=== PATIENT | female | born 1945 | race Caucasian/White ===

== ENCOUNTER 2016-06-20 20:30 | Inpatient (IN) | payer OTHER ==
[~2016-06-20] VITALS: Ht 157.5 cm; Wt 75.4 kg
[2016-06-21] VITALS (12 sets, daily range): BP systolic 137–174; BP diastolic 63–76; PULSE 60–83; RESP 20; TEMP 97.6; Ht 157.5 cm; Wt 75.4 kg
[2016-06-21] MEDS ORDERED: KETOROLAC 15 MG INJ IV STA (00:14)
[2016-06-21] MEDS ORDERED: SOD CHLORIDE 0.9% 1,000 ML IV STA (00:14)
[2016-06-21] MEDS ORDERED: ONDANSETRON 4 MG INJ IV STA (00:14)
[2016-06-21 01:10] LABS: BASOPHIL # 0.1 10^3/ul (0.0-0.1); BASOPHILS % 0.6 % (0.0-2.0); EOSINOPHILS # 0.3 10^3/ul (0.0-0.5); EOSINOPHILS % 2.9 % (0.0-7.0); HEMATOCRIT 38.5 % (37.0-47.0); HEMOGLOBIN 13.1 g/dl (12.0-16.0); LYMPHOCYTES # 3.1 10^3/ul (0.8-2.9); LYMPHOCYTES % 29.4 % (15.0-51.0); MEAN CORPUSCULAR HEMOGLOBIN 29.1 pg (29.0-33.0); MEAN CORPUSCULAR VOLUME 85.7 fl (82.0-101.0); MEAN PLATELET VOLUME 8.7 fl (7.4-10.4); MONOCYTE # 0.8 10^3/ul (0.3-0.9); MONOCYTES % 7.3 % (0.0-11.0); NEUTROPHIL # 6.4 10^3/ul (1.6-7.5); NEUTROPHILS % 59.8 % (39.0-77.0); PLATELET COUNT 299 10^3/UL (140-440); RED BLOOD COUNT 4.49 10^6/ul (4.20-5.40); RED CELL DISTRIBUTION WIDTH 12.9 % (11.5-14.5); UNCORRECTED WBC 10.7 10^3/ul (4.8-10.8); WHITE BLOOD COUNT 10.7 10^3/ul (4.8-10.8)
[2016-06-21 01:12] LABS: ALBUMIN 4.2 g/dl (3.3-4.9)
[2016-06-21 01:13] LABS: CONDITION 1; POTASSIUM 4.5 mmol/L (3.5-5.1)
[2016-06-21 01:15] LABS: BILIRUBIN,INDIRECT 0.3 mg/dl (0-1.1); BILIRUBIN,TOTAL 0.3 mg/dl (0.2-1.3); CREATININE 0.76 mg/dl (0.44-1.00)
[2016-06-21 01:16] LABS: ALBUMIN/GLOBULIN RATIO 1.16; CALCIUM 9.4 mg/dl (8.4-10.2); TOTAL PROTEIN 7.8 g/dl (6.1-8.1)
[2016-06-21 01:27] LABS: ADD UMIC YES; URINE BILIRUBIN (Dip) NEGATIVE (NEGATIVE); URINE BLOOD (Dip) NEGATIVE (NEGATIVE); URINE COLOR LT. YELLOW (YELLOW); URINE KETONES (Dip) TRACE (NEGATIVE); URINE LEUKOCYTE ESTERASE (Dip) 1+ (NEGATIVE); URINE NITRITE (Dip) NEGATIVE (NEGATIVE); URINE TOTAL PROTEIN (Dip) NEGATIVE (NEGATIVE); URINE UROBILINOGEN (Dip) 0.2 E.U./dL (0.1-1.0)
[2016-06-21] MEDS ORDERED: CEPH-443 PO (01:31)
[2016-06-21 01:44] LABS: TROPONIN-I 0.13 ng/ml (0.00-0.12)
--- NOTE | 2016-06-21 01:48 | ERD ---
ER Documentation Chief Complaint Date/Time DATE: 06/21/16 TIME: 01:42 Chief Complaint HTN and mid neck pain today HPI 71-year-old woman brought in by son for generalized weakness and elevated blood pressure today she is also had upper back pain and lateral neck pain which is nonexertional and nonradiating. Patient denies chest pain or shortness of breath, she has been using her medications as prescribed, she has had no fevers or chills, no cough, no calf or leg swelling, no headache or blurry vision. Patient denies paresis or paresthesias, no dysuria or hematuria. ROS All systems reviewed and are negative except as per history of present illness. Medications Home Meds Active Scripts Cephalexin* (Keflex*) 500 Mg Capsule, 500 MG PO TID for 5 Days, CAP Prov:DEMETRIO TRINIDAD MD 06/21/16 Allergies Allergies: Coded Allergies: No Known Allergy (Unverified , 06/20/16) PMhx/Soc Hypertension History of Surgery: No Anesthesia Reaction: No Hx Neurological Disorder: No Hx Respiratory Disorders: No Hx Cardiac Disorders: Yes (HTN) Hx Psychiatric Problems: No Hx Miscellaneous Medical Probl: Yes (DM, CHOLESTEROL) Hx Alcohol Use: No Hx Substance Use: No Hx Tobacco Use: No Smoking Status: Never smoker FmHx Family History: diabetes Physical Exam Vitals Vital Signs Date Time Temp Pulse Resp B/P Pulse Ox O2 Delivery O2 Flow Rate FiO2 06/21/16 02:52 62 18 113/57 99 Room Air 06/21/16 01:26 73 20 121/60 100 Room Air 06/20/16 23:55 98.6 63 20 161/76 100 Room Air 06/20/16 21:13 97.6 63 20 183/76 100 Physical Exam GENERAL: Well-developed, well-nourished, well-hydrated, in no apparent distress , looks nontoxic in appearance HEENT: Moist mucous membranes, pink conjunctiva, no cervical spine tenderness or step-off deformities, no goiter, no jaundice or icterus, extraocular movements intact without pain. No submandibular induration, and no pharyngeal erythema NEURO: Alert and oriented 3, cranial nerves II through XII intact bilaterally, pupils equal round reactive to light, no focal deficits or facial asymmetry, sensation intact distally Strength 5/5 in upper and lower extremities bilaterally CARDIAC: Regular rate and rhythm, no murmurs rubs or gallops LUNGS: Clear bilaterally no wheezing crackles or stridor ABDOMEN: Soft nontender, no guarding, no rigidity, no rebound, no psoas sign no obturator sign. Normoactive bowel sounds SKIN: Warm and dry to touch, no abrasions, contusions, or hematomas, no lacerations, no ecchymosis, no target lesions, and without ulcers EXTREMITIES: No clubbing cyanosis or edema, calves are bilaterally symmetrical, no Homans sign, no popliteal cord sign. Distal pulses equal and bilateral PSYCH: Normal affect without agitation or irritability Result Diagram: 06/21/163406/21/1634 Results 24 hrs Laboratory Tests Test 06/21/16 00:35 06/21/16 00:45 Alanine Aminotransferase (ALT/SGPT) 32IU/L Albumin 4.2g/dl Albumin/Globulin Ratio 1.16 Alkaline Phosphatase 54IU/L Anion Gap 18 Aspartate Amino Transf (AST/SGOT) 22IU/L Basophils # 0.110^3/ul Basophils % 0.6% Blood Urea Nitrogen 16mg/dl Calcium Level 9.4mg/dl Carbon Dioxide Level 26mmol/L Chloride Level 93mmol/L Creatinine 0.76mg/dl Direct Bilirubin 0.00mg/dl Eosinophils # 0.310^3/ul Eosinophils % 2.9% Globulin 3.60g/dl Glucose Level 220mg/dl Hematocrit 38.5% Hemoglobin 13.1g/dl Indirect Bilirubin 0.3mg/dl Lipase 104U/L Lymphocytes # 3.110^3/ul Lymphocytes % 29.4% Mean Corpuscular Hemoglobin 29.1pg Mean Corpuscular Hemoglobin Concent 34.0g/dl Mean Corpuscular Volume 85.7fl Mean Platelet Volume 8.7fl Monocytes # 0.810^3/ul Monocytes % 7.3% Neutrophils # 6.410^3/ul Neutrophils % 59.8% Nucleated Red Blood Cells # 0.010^3/ul Nucleated Red Blood Cells % 0.0/100WBC Platelet Count 60992^3/UL Potassium Level 4.5mmol/L Red Blood Count 4.4910^6/ul Red Cell Distribution Width 12.9% Sodium Level 132mmol/L Total Bilirubin 0.3mg/dl Total Protein 7.8g/dl Troponin I 0.130ng/ml White Blood Count 10.710^3/ul Urine Bilirubin NEGATIVE Urine Clarity CLEAR Urine Color LT. YELLOW Urine Glucose 0.5%% Urine Hemoglobin NEGATIVE Urine Ketones TRACE Urine Leukocyte Esterase 1+ Urine Microscopic RBC 0-2/HPF Urine Microscopic WBC 2-5/HPF Urine Nitrite NEGATIVE Urine Specific [place] <=1.005 Urine Squamous Epithelial Cells RARE Urine Total Protein NEGATIVE Urine Urobilinogen 0.2 E.U./dL Urine pH 5.5 Current Medications Medications (Trade) Dose Ordered Sig/Bryan Route PRN Reason Start Time Stop Time Status Last Admin Dose Admin Clonidine 0.1 mg 0.1 mg ONCE ONCE PO 06/21/16 00:30 06/21/16 00:32 DC 06/21/16 00:52 Sodium Chloride (NS) 1,000 ml @ 1,000 mls/hr Q1H STAT IV 06/21/16 00:14 06/21/16 01:13 DC 06/21/16 00:51 Ondansetron HCl (Zofran Inj) 4 mg ONCE STAT IV 06/21/16 00:14 06/21/16 00:15 DC 06/21/16 00:53 Ketorolac Tromethamine (Toradol) 15 mg ONCE STAT IV 06/21/16 00:14 06/21/16 00:15 DC 06/21/16 00:53 Aspirin (Aspirin) 325 mg ONCE ONCE PO 06/21/16 02:00 06/21/16 02:01 DC 06/21/16 02:39 Procedures/MDM IV line was established patient was placed on front desk monitor rhythm strip revealed a sinus rhythm at about 60 bpm with upright P and T waves. Patient was afebrile. I administered 1 L normal saline intravenously, Toradol 15 mg IV, Zofran 4 mg IV , and clonidine 0.1 mg p.o. with good effect. EKG performed, read by me: 62 bpm, normal sinus rhythm, normal axis, no acute ST segment changes, narrow QRS complex, with good R-wave progression in precordial leads. CBC was unremarkable, electrolytes normal, troponin +0.13. Liver function tests normal. Urine analysis was unremarkable I treated the patient with aspirin 325 mg p.o. Patient's vital signs have improved although given her symptoms and elevated troponin she will be admitted to telemetry setting. Patient's symptoms are concerning for cardiac cause will require inpatient workup and continuous monitoring. Further w/u for ischemia, arrhythmia, PE or dissection will be deferred to the inpatient team. Accepting Care Team: Current data and ongoing care discussed. Time: Time of admission Primary Provider: Hospital Consulting: Cardiology Outstanding Data: none Departure Diagnosis: Primary Impression: Hypertension Hypertension type: essential hypertension Qualified Code: I10 - Essential hypertension Additional Impression: Non-STEMI (non-ST elevated myocardial infarction) Condition: Fair Patient Instructions: High Blood Pressure (Hypertension), Bladder Infection, Female (Adult) DEMETRIO TRINIDAD MD Jun 21, 2016 01:48
[2016-06-21 01:54] LABS: SQUAMOUS EPITHELIAL CELL,UR RARE; URINE RBCS 0-2 /HPF (0)
[2016-06-21] MEDS ORDERED: ASPIRIN 325 MG TAB PO ONE (02:00)
--- NOTE | 2016-06-21 03:14 | RADRPT ---
PROCEDURE: XR Chest. CLINICAL INDICATION: Shortness of breath. TECHNIQUE: AP Portable chest. COMPARISON: No pertinent prior examinations were submitted for comparison. FINDINGS: The cardiomediastinal silhouette is normal. The lungs are clear. The osseous structures are unrema rkable. IMPRESSION: No acute findings. RPTAT: HIKT .Avinash Mcgill MD, MD Date Time Electronically viewed and signed by .Avinash Mcgill MD, MD on 06/21/2016 03:13 .T/
[2016-06-21] MEDS ORDERED: morphine 2 MG INJ IV PRN (05:00)
[2016-06-21] MEDS ORDERED: DEXTROSE 5%-0.45% NACL 1,000 ML IV SCH (05:00)
[2016-06-21] MEDS ORDERED: ONDANSETRON 4 MG INJ IV PRN (05:00)
[2016-06-21] MEDS ORDERED: NITROGLYCERIN (SL) 0.4 MG TAB SL PRN (05:00)
[2016-06-21] MEDS ORDERED: ACETAMINOPHEN 325 MG TAB PO PRN (05:00)
[2016-06-21] MEDS: HEPARIN 5,000 UNIT/0.5 ML SYG SC SCH ×3 (05:54→21:32)
[2016-06-21] MEDS ORDERED: METOPROLOL 25 MG TAB PO SCH (09:00)
--- NOTE | 2016-06-21 09:30 | HP ---
DATE OF ADMISSION: 06/21/2016 TIME SEEN: 5 a.m. CHIEF COMPLAINT: Generalized weakness and elevated blood pressure and neck pain. The patient is a 71-year-old male with a history of hypertension and diabetes who presented to the e mergency department with family complaining of generalized weakness and elevated blood pressure. Sh e also reported mild neck pain. Denied any chest pain, shortness of breath, fever, chills, nausea, vomiting, abdominal pain, or urinary symptoms. When she presented to the ER, blood pressure was 183/76 and laboratory value was notable for a tropo doc of 0.130. Sodium 132, chloride 93. Otherwise, CBC and CMP are within normal limits. Chest x-ray shows no acute findings. The patient was given aspirin, clonidine, a liter of normal saline, Toradol and Zofran and admitted for further workup and management. Of note, her initial EKG shows normal sinus rhythm with a rate of [address]-T wave abnormalities . REVIEW OF SYSTEMS: A 12-point review of systems negative except as mentioned in HPI. PAST MEDICAL HISTORY: As per HPI. PAST SURGICAL HISTORY: Cholecystectomy. SOCIAL HISTORY: Denied a history of tobacco, alcohol or illicit drug use. ALLERGIES: NO KNOWN DRUG ALLERGIES. HOME MEDICATIONS: None listed. PHYSICAL EXAMINATION: VITAL SIGNS: Currently blood pressure 137/64, heart rate 63, respiratory rate 20, temperature 98, o xygen saturation 98% on room air. GENERAL: Elderly female lying in bed in no acute distress. HEENT: No obvious head deformity. Extraocular muscles intact. CARDIOVASCULAR: Regular rate and rhythm. No extra sounds. Lungs are clear. ABDOMEN: Soft, nontender, nondistended. Positive bowel sounds. EXTREMITIES: No edema. NEUROLOGIC: No focal deficits. LABORATORY DATA: Pertinent laboratories as mentioned in the HPI. IMAGING: Chest x-ray with no findings. IMPRESSION: 1. Positive troponin. 2. Hypertensive urgency, blood pressure within goal now. 3. Neck pain/upper back pain, of unknown etiology. 4. Mild hyponatremia. 5. Diabetes. PLAN: Continue telemetry monitoring. Her positive troponin could be demand ischemia as a result of elevated blood pressure. She denies any chest pain or shortness of breath, even though she did repo rt some lateral neck pain and upper back pain. We will trend troponin. EKG as mentioned above show s normal sinus rhythm with a rate of [address]-T wave abnormality. We will obtain a 2D echo and a cardiology consult. She will be placed on aspirin, beta blockers, statins oxygen and as needed n itroglycerin and morphine. Blood pressure is better controlled now. Will adjust antihypertensive a s needed. Will check A1c, fasting lipids and TSH in the morning. Will correct electrolytes as hope d. Further workup and management per clinical course. Dictated By: CLYDE MCGINNIS/MOHIT Conf#: [id number] DID#: [id number]
[2016-06-21 11:58] LABS: ALBUMIN 4.6 g/dl (3.3-4.9)
[2016-06-21 11:59] LABS: POTASSIUM 4.7 mmol/L (3.5-5.1)
[2016-06-21 12:01] LABS: ALBUMIN/GLOBULIN RATIO 1.53; BILIRUBIN,INDIRECT 0.1 mg/dl (0-1.1); BILIRUBIN,TOTAL 0.1 mg/dl (0.2-1.3); CREATININE 0.71 mg/dl (0.44-1.00); TOTAL PROTEIN 7.6 g/dl (6.1-8.1)
[2016-06-21 12:02] LABS: CALCIUM 9.7 mg/dl (8.4-10.2)
[2016-06-21 12:32] LABS: THYROID STIMULATING HORMONE 2.55 MIU/L (0.465-4.680)
--- NOTE | 2016-06-21 15:26 | PN ---
Date/Time of Note Date/Time of Note DATE: 06/21/16 TIME: 15:11 Assessment/Plan VTE Prophylaxis VTE Prophylaxis Intervention: heparin Lines/Catheters IV Catheter Type (from Nrs): Saline Lock Urinary Cath still in place: No Assessment/Plan Assessment/Plan 1. Positive troponin, significance unclear, follow up with cardiology 2. Hypertension, not controlled, lisinopril with metoprolol 3. Neck pain/upper back pain, of unknown etiology. 4. Mild hyponatremia. 5. Diabetes mellitus, declines insulins, on metoformin, will increase glyburide Subjective 24 Hr Interval Summary Free Text/Dictation no chest pain, no shortness of breath Exam/Review of Systems Vital Signs Vitals Vital Signs Date Time Temp Pulse Resp B/P Pulse Ox O2 Delivery O2 Flow Rate FiO2 06/21/16 12:02 66 06/21/16 12:00 97.8 20 174/75 97 Room Air Intake and Output 06/20/16 06/20/16 06/21/16 15:00 23:00 07:00 Intake Total 50 ml Balance 50 ml Exam Constitutional: alert, oriented, well developed Psych: nl mood/affect, no complaints Head: atraumatic, normocephalic Eyes: EOMI, PERRL, nl conjunctiva, nl lids ENMT: nl external ears & nose, nl lips & teeth, nl nasal mucosa & septum Neck: non-tender, supple Respiratory: clear to auscultation, normal air movement, No congested cough, No crackles/rales, No diminished breath sounds, No intercostal retraction, No labored breathing, No respirations, No tactile fremitus, No wheezing Cardiovascular: nl pulses, regular rate and rhythm, No S3, No S4, No bruits, No diastolic murmur, No edema, No gallop, No irregular rhythm, No jugular venous distention (JVD), No murmurs/extra sounds, No rub, No systolic murmur Gastrointestinal: nl liver, spleen, non-tender, soft, No ascites, No bowel sounds, No distended, No firm, No hepatomegaly, No mass , No rebound or guarding, No splenomegaly, No surgical scars, No tender Musculoskeletal: nl extremities to inspection Extremities: normal pulses, No calf tenderness, No clubbing, No cyanosis, No edema, No palpable cord, No pitting pedal edema, No tenderness Neurological: [employer] II-XII intact, nl mental status, nl speech, nl strength Skin: nl turgor, rash or lesions Lymph: nl lymph nodes Results Result Diagram: 06/21/165 06/21/16 0900 Results 24 hrs Laboratory Tests Test 06/21/16 00:35 06/21/16 00:45 06/21/16 09:00 Alanine Aminotransferase (ALT/SGPT) 32 31 Albumin 4.2 4.6 Albumin/Globulin Ratio 1.16 1.53 Alkaline Phosphatase 54 59 Anion Gap 18 H 22 H Aspartate Amino Transf (AST/SGOT) 22 25 Basophils # 0.1 Basophils % 0.6 Blood Urea Nitrogen 16 17 Calcium Level 9.4 9.7 Carbon Dioxide Level 26 24 Chloride Level 93 L 91 L Creatinine 0.76 0.71 Direct Bilirubin 0.00 0.00 Eosinophils # 0.3 Eosinophils % 2.9 Globulin 3.60 H 3.00 Glucose Level 220 221 H Hematocrit 38.5 Hemoglobin 13.1 Hemoglobin A1c 8.5 H Indirect Bilirubin 0.3 0.1 Lipase 104 Lymphocytes # 3.1 H Lymphocytes % 29.4 Mean Corpuscular Hemoglobin 29.1 Mean Corpuscular Hemoglobin Concent 34.0 Mean Corpuscular Volume 85.7 Mean Platelet Volume 8.7 Monocytes # 0.8 Monocytes % 7.3 Neutrophils # 6.4 Neutrophils % 59.8 Nucleated Red Blood Cells # 0.0 Nucleated Red Blood Cells % 0.0 Platelet Count 299 Potassium Level 4.5 4.7 Red Blood Count 4.49 Red Cell Distribution Width 12.9 Sodium Level 132 L 132 L Total Bilirubin 0.3 0.1 L Total Protein 7.8 7.6 Troponin I 0.130 *H 0.148 *H White Blood Count 10.7 Urine Bilirubin NEGATIVE Urine Clarity CLEAR Urine Color LT. YELLOW Urine Glucose 0.5% H Urine Hemoglobin NEGATIVE Urine Ketones TRACE H Urine Leukocyte Esterase 1+ H Urine Microscopic RBC 0-2 Urine Microscopic WBC 2-5 Urine Nitrite NEGATIVE Urine Specific [place] <=1.005 L Urine Squamous Epithelial Cells RARE Urine Total Protein NEGATIVE Urine Urobilinogen 0.2 E.U./dL Urine pH 5.5 Cholesterol Level 163 Cholesterol/HDL Ratio 7.0 HDL Cholesterol 23 L LDL Cholesterol, Calculated 78 Thyroid Stimulating Hormone (TSH) 2.550 Triglycerides Level 312 H Medications Medications Current Medications Metoprolol Tartrate (Lopressor) 25 mg BID PO Last administered on 06/21/16 08: 45; Admin Dose 25 MG; Start 06/21/16 at 09:00 Atorvastatin Calcium (Lipitor) 20 mg HS PO ; Start 06/21/16 at 21:00 Nitroglycerin (Nitroglycerin (Sl Tab) 0.4 Mg) 1 tab Q5M PRN SL ANGINA; Start at 05:00 Morphine Sulfate (morphine) 2 mg Q4H PRN IV PAIN LEVEL 7-10; Start 06/21/16 at 05:00 Acetaminophen 650 mg 650 mg Q6H PRN PO PAIN AND OR ELEVATED TEMP; Start at 05:00 Dextrose/Sodium Chloride (D5-1/2ns) 1,000 ml @ 75 mls/hr [id number] IV Last administered on 06/21/16 05:52; Admin Dose 75 MLS/HR; Start 06/21/16 at 05:00 Heparin Sodium (Porcine) (Heparin (5000 Units/0.5 ml)) 5,000 unit Q8 SC Last administered on 06/21/16 13:51; Admin Dose 5,000 UNIT; Start 06/21/16 at 06:00 Clonidine (Catapres) 0.1 mg Q6H PRN PO sbp over 160 Last administered on 13:52; Admin Dose 0.1 MG; Start 06/21/16 at 13:30 SHARON SALMON MD Jun 21, 2016 15:21
[2016-06-21] MEDS ORDERED: GLUCOSE GEL 15 GRAM TUBE PO PRN ×2 (15:30)
[2016-06-21] MEDS ORDERED: [UNRECOGNIZED DRUG - REMARK] XX ONE (15:30)
[2016-06-21] MEDS ORDERED: DEXTROSE 50% 50 ML SYRINGE IV PRN ×2 (15:30)
[2016-06-21] MEDS ORDERED: GLUCOSE GEL 15 GRAM TUBE BUCCAL PRN (15:30)
[2016-06-21] MEDS ORDERED: GLUCAGON 1 MG INJ IM PRN (15:30)
[2016-06-21] MEDS ORDERED: Discontinue Glyburide, Glipizide, and/or Glimepiride prior to starting Insulin XX ONE (15:30)
[2016-06-21] MEDS: LISINOPRIL 20 MG TAB PO SCH (15:45)
[2016-06-21] MEDS: glyBURIDE 5 MG TAB GTB SCH (17:18)
[2016-06-21] MEDS: metFORMIN 500 MG TAB PO SCH (17:20)
[2016-06-21] MEDS: INSULIN ASPART [NOVOLOG] 3 ML PEN SC SCH ×2 (17:21→20:24)
[2016-06-21] MEDS ORDERED: METO100T2 PO (17:31)
[2016-06-21] MEDS ORDERED: ENAL10TA78 PO (17:31)
[2016-06-21] MEDS ORDERED: METF500T PO (17:31)
[2016-06-21] MEDS ORDERED: GLYB5TAB3 PO (17:31)
--- NOTE | 2016-06-21 19:41 | CONS ---
DATE OF ADMISSION: 06/21/2016 DATE OF CONSULTATION: 06/21/2016 TYPE OF CONSULTATION: Cardiology. REASON FOR CONSULTATION: Positive troponin, assess significance. REQUESTING PHYSICIAN: Dr. Boggs from the hospitalist service. HISTORY OF PRESENT ILLNESS: Ms. Les Booker is a very pleasant 71-year-old female with a history of hypertension, diabetes mellitus who initially presented with complaints of significant elevated blood pressure and mild generalized weakness. The patient denies chest pain at this time. The caitlin ent did have neck pain. Upon arrival in the emergency department, temperature of 97.6, blood pressu re elevated at 183/76, pulse 60, respiration 20, satting 100%. The patient's labs were notable for a sodium of 132, potassium 4.5, creatinine 0.7, BUN 16. Troponin positive at 0.130. Hemoglobin A1c 8.5. White blood cell count 10.7, hemoglobin 13.1, platelet count 299, UA negative. The patient u nderwent a chest x-ray revealing no acute cardiopulmonary abnormalities. The patient's electrocardi ogram revealed sinus rhythm, rate of 62 with normal axis, normal intervals, inferior lateral T-wave inversions and rare PACs. The patient was subsequently admitted to the floor and since admitted to the floor, denies chest pain. The patient has had troponins trended going from 0.130 up to 0.148 an d are negative. PAST MEDICAL HISTORY: As above in HPI. MEDICATIONS CURRENTLY IN HOSPITAL: 1. Lipitor 20 mg at bedtime. 2. Metoprolol 50 mg p.o. b.i.d. 3. Metformin 5 mg b.i.d. 4. Glyburide 10 mg with meals. 5. Zestril 20 mg daily. 6. Insulin sliding scale. 7. Sublingual nitroglycerin p.r.n. 8. Heparin 5000 subq q. 8. 9. Zofran p.r.n. 10. Tylenol p.r.n. 11. Morphine p.r.n. ALLERGIES: NO KNOWN DRUG ALLERGIES. SOCIAL HISTORY: No tobacco, ETOH or illicit drug use. FAMILY HISTORY: No history of sudden cardiac or early CAD. REVIEW OF SYSTEMS: As above in HPI. CONSTITUTIONAL: No fevers, chills. PULMONARY: No current shortness of breath. CARDIOVASCULAR: No current chest pain. Positive troponin. GASTROINTESTINAL: No vomiting. GENITOURINARY: No hematuria. MUSCULOSKELETAL: Degenerative joint disease. PSYCHIATRIC: The patient denies depression. NEUROLOGIC: No documented history of CVA. PHYSICAL EXAMINATION VITAL SIGNS: Temperature of 98.1, blood pressure 157/76, pulse 83, respiratory rate 20, saturating 98% on room air. GENERAL: The patient is alert, awake, in no acute distress. NECK: JVP approximately 8 cm of water. CHEST: Fair air movement throughout. HEART: Regular rate and rhythm. Normal S1, S2, I/ systolic murmur, nondisplaced PMI. ABDOMEN: Positive bowel sounds, soft. EXTREMITIES: No edema, 1+ pulses bilaterally at posterior tibial. LABORATORY DATA: As above in HPI with most recently from today, sodium 132, potassium 4.7, creatini ne 0.7, BUN 17. Troponin 0.072. LDL 78, HDL 23, TSH within normal limits at 2.55. IMAGING STUDIES: As above in HPI. No further imaging studies for my review at this time. ECG: As above in HPI. No further electrocardiograms for my review at this time. IMPRESSION: 1. Positive troponin, assess significance. 2. Abnormal electrocardiogram with inferolateral T-wave inversions, assess for true acute coronary syndrome. 3. Hypertensive urgency emergency, slowly improving on oral antihypertensives. 4. Diabetes mellitus. 5. Dyslipidemia. 6. Generalized weakness. Rule out true acute coronary syndrome. 7. Hyponatremia. RECOMMENDATIONS: 1. At this time, would maintain patient on telemetry monitoring to follow rhythm and rate control c losely. 2. We will continue to check serial EKGs to assess for any significant ongoing changes and continue to trend the patient's cardiac enzymes to assess for any significant ongoing cardiac damage. 3. Check a 2D echocardiogram to further assess this patient's ejection fraction, wall motion and ru le out any major valve abnormalities. 4. Continue the patient's current metoprolol and lisinopril with dose titration as necessary to imp rove overall systolic blood pressure control. 5. Give patient sublingual nitroglycerin for any episodes of chest pain. 6. Continue the patient's current statin therapy. 7. We will follow the patient's 2D echo in order to assess ejection fraction, wall motion, or any m ajor abnormalities and as this patient does have abnormal electrocardiographic findings with minimal troponin elevation which has now trended negative and chest pain, I believe this patient will still benefit from risk stratification as an inpatient. Thus will be scheduled for an a.m. [place] n stress test. Thank you for allowing me to take part in the care of this patient. I will continue to follow very closely with you with further recommendations to be made as the patient progresses through her [facility] clinical course. Dictated By: KIMBERLEY ALBA/MOHIT Conf#: [id number] DID#: [id number] CC: CLYDE BOGGS MD;*EndCC*
[2016-06-21] MEDS: ATORVASTATIN 20 MG TAB PO SCH (20:21)
[2016-06-21] MEDS: METOPROLOL 50 MG TAB PO SCH (20:22)
[2016-06-22] VITALS (10 sets, daily range): BP systolic 148–191; BP diastolic 66–84; PULSE 65–76; RESP 17–20
[2016-06-22] MEDS: ACCUCHECK XX SCH (02:00)
[2016-06-22] MEDS: HEPARIN 5,000 UNIT/0.5 ML SYG SC SCH ×3 (05:12→21:41)
[2016-06-22] MEDS: INSULIN ASPART [NOVOLOG] 3 ML PEN SC SCH ×4 (08:00→20:42)
[2016-06-22] MEDS: glyBURIDE 5 MG TAB GTB SCH (08:57)
[2016-06-22] MEDS: metFORMIN 500 MG TAB PO SCH ×2 (08:57→18:07)
[2016-06-22] MEDS: METOPROLOL 50 MG TAB PO SCH ×2 (08:59→20:30)
[2016-06-22] MEDS: LISINOPRIL 20 MG TAB PO SCH ×2 (09:00→20:30)
--- NOTE | 2016-06-22 09:28 | RADRPT ---
Vent Rate: 73 bpm RR Interval: 0 msec GA Interval: 142 msec QRS Duration: 74 msec QT Interval: 368 msec QTC Interval: 405 msec P-R-T Pax: 32 - 16 - 67 degrees Normal sinus rhythm Normal ECG Electronically Signed By: Tacos Garcia [id number]
[2016-06-22] MEDS ORDERED: REGADENOSON 0.4 MG/5 ML SYG ONE (11:43)
--- NOTE | 2016-06-22 12:15 | CONS ---
Date/Time of Note Date/Time of Note DATE: 06/22/16 TIME: 12:12 Assessment/Plan Assessment/Plan Chief Complaint/Hosp Course IMPRESSION: 1. Positive troponin, assess significance.-now trended negative 2. Abnormal electrocardiogram with inferolateral T-wave inversions, assess for true acute coronary syndrome. 3. Hypertensive urgency emergency, slowly improving on oral antihypertensives. 4. Diabetes mellitus. 5. Dyslipidemia. 6. Generalized weakness. Rule out true acute coronary syndrome. 7. Hyponatremia. Recc: -Tele -Continue BB -Increase ACEI to improve BP control -Continue statin -start asa -lexiscan stress test today to assess significance of positive troponin Problems: Consultation Date/Type/Reason Admit Date/Time Jun 21, 2016 at 02:07 Initial Consult Date 06/21/2016 Type of Consultation: Cardiology Reason for Consultation positive troponin Referring Provider: TEMI CALZADA MD Exam/Review of Systems Vital Signs Vitals Vital Signs Date Time Temp Pulse Resp B/P Pulse Ox O2 Delivery O2 Flow Rate FiO2 06/22/16 08:24 69 06/22/16 07:45 98.0 19 176/74 97 06/21/16 16:00 Room Air Intake and Output 06/21/16 06/21/16 06/22/16 15:00 23:00 07:00 Intake Total 640 ml 300 ml Balance 640 ml 300 ml Exam Review of Systems: CONSTITUTIONAL: No fevers, chills. PULMONARY: No sob CARDIOVASCULAR: No chest pain/palpitations GASTROINTESTINAL: No nausea/vomiting. GENITOURINARY: No hematuria/dysuria. MUSCULOSKELETAL: No myagias/arthalgias. PSYCHIATRIC: The patient denies depression. NEUROLOGIC: positive weakness Constitutional: alert, oriented Psych: no complaints Head: normocephalic ENMT: mucosa pink and moist Neck: jvd (9 cm water), supple Respiratory: diminished breath sounds (at bases/B) Cardiovascular: regular rate and rhythm Gastrointestinal: non-tender, soft Musculoskeletal: muscle tone (normal) Extremities: edema (none) Neurological: other (No focal deficits) Results Result Diagram: 06/21/16 0035 06/21/16 0900 Results 24 hrs Laboratory Tests Test 06/21/16 14:10 06/21/16 17:12 06/21/16 20:12 06/22/16 06:55 Troponin I 0.072 0.063 Bedside Glucose 242 H 207 Test 06/22/16 08:56 Bedside Glucose 205 Medications Medications Current Medications Atorvastatin Calcium (Lipitor) 20 mg HS PO Last administered on 06/21/16 20:21 ; Admin Dose 20 MG; Start 06/21/16 at 21:00 Nitroglycerin (Nitroglycerin (Sl Tab) 0.4 Mg) 1 tab Q5M PRN SL ANGINA; Start at 05:00 Morphine Sulfate (morphine) 2 mg Q4H PRN IV PAIN LEVEL 7-10; Start 06/21/16 at 05:00 Acetaminophen (Tylenol Tab) 650 mg Q6H PRN PO PAIN AND OR ELEVATED TEMP; Start 06/21/16 at 05:00 Heparin Sodium (Porcine) (Heparin (5000 Units/0.5 ml)) 5,000 unit Q8 SC Last administered on 06/22/16 05:12; Admin Dose 5,000 UNIT; Start 06/21/16 at 06:00 Clonidine (Catapres) 0.1 mg Q6H PRN PO sbp over 160 Last administered on 13:52; Admin Dose 0.1 MG; Start 06/21/16 at 13:30 Lisinopril (Zestril) 20 mg DAILY PO Last administered on 06/22/16 09:00; Admin Dose 20 MG; Start 06/21/16 at 15:30 Diagnostic Test (Pha) (Accucheck) 1 ea 02 XX ; Start 06/22/16 at 02:00 Miscellaneous Information 1 ea NOTE XX ; Start 06/21/16 at 15:30 Glucose (Glutose) 15 gm Q15M PRN PO DECREASED GLUCOSE; Start 06/21/16 at 15:30 Glucose (Glutose) 22.5 gm Q15M PRN PO DECREASED GLUCOSE; Start 06/21/16 at 15: 30 Dextrose (D50w Syringe) 25 ml Q15M PRN IV DECREASED GLUCOSE; Start 06/21/16 at 15:30 Dextrose (D50w Syringe) 50 ml Q15M PRN IV DECREASED GLUCOSE; Start 06/21/16 at 15:30 Glucagon (Glucagen) 1 mg Q15M PRN IM DECREASED GLUCOSE; Start 06/21/16 at 15:30 Glucose (Glutose) 15 gm Q15M PRN BUCCAL DECREASED GLUCOSE; Start 06/21/16 at 15 :30 Metoprolol Tartrate (Lopressor) 50 mg BID PO Last administered on 06/22/16t 08: 59; Admin Dose 50 MG; Start 06/21/16 at 21:00 KIMBERLEY OSBORN Jun 22, 2016 12:15
--- NOTE | 2016-06-22 13:04 | RADRPT ---
Echocardiogram Report Patient Name: HAIDER ARMENDARIZ Gender: Female Date: 1945 Study Date: 22-Jun-2016 Hotel Manager: Neel Wheat [facility] Location: [id number] Ref. Physician: KIMBERLEY CINTRON Quality: Good Procedures: Transthoracic echocardiogram with complete 2D, M-Mode, and doppler examination. Indications: positive troponin. 2D/M Mode Doppler Measurement Value Normal Ranges Measurement Value Normal Ranges LVIDd 2D 4.6 3.5 - 5.6 cm AV Peak Merlin 1.3 m/sec LVIDs 2D 2.4 2.1 - 4.1 cm AV Peak PG 7.0 mmHg FS 2D 47.9 % LVOT Peak Merlin 0.9 m/sec LVPWd 2D 1.0 0.6 - 1.1 cm LVOT Peak PG 3.0 mmHg IVSd 2D 1.0 0.6 - 1.1 cm MV E Peak Merlin 0.8 m/sec IVS/LVPW 2D 1.0 MV A Peak Merlin 1.0 m/sec AoR Diam 2D 2.6 2.0 - 3.7 cm MV E/A 0.8 LA/Ao 2D 1 0 - 1 MV Decel Time 208 msec EDV 2D 98.0 cm3 MV E/A 0.8 ESV 2D 13.8 cm3 TR Peak Merlin 2.5 m/sec LA Dimen 2D 3.5 2.3 - 4.0 cm TR Peak PG 25.0 mmHg RVSP 28.0 mmHg Findings Left Ventricle: Normal left ventricular systolic function. Normal left ventricular cavity size. Mild concentric left ventricular hypertrophy. Ejection fraction is visually estimated at 60 %. Tissue Doppler/Mitral Doppler indices are consistent with impaired relaxation (Stage I diastolic dysfunction). Right Ventricle: Normal right ventricular size. Normal right ventricular systolic function. Left Atrium: The left atrium is normal in size. Right Atrium: The right atrium is normal in size. Mitral Valve: Normal appearance and function of the mitral valve with trace physiologic regurgitation. Aortic Valve: Normal appearance of the aortic valve. No significant aortic stenosis or insufficiency. Tricuspid Valve: Normal appearance of the tricuspid valve. Estimated peak PA systolic pressure 28 mmHg. There is trace tricuspid regurgitation. Pericardium: Normal pericardium with no significant pericardial effusion. Aorta: Normal aortic root. IVC: Normal size and normal respiratory collapse consistent with normal right atrial pressure. Conclusions 1.Normal left ventricular systolic function. Normal left ventricular cavity size. Mild concentric left ventricular hypertrophy. Ejection fraction is visually estimated at 60 %. Tissue Doppler/Mitral Doppler indices are consistent with impaired relaxation (Stage I diastolic dysfunction). 2.Normal appearance and function of the mitral valve with trace physiologic regurgitation. 3.Normal appearance of the tricuspid valve. Estimated peak PA systolic pressure 28 mmHg. There is trace tricuspid regurgitation. Electronically Signed By: Kimberley Cintron 22-Jun-2016 13:03:27 -0800 Patient Name: HAIDER ARMENDARIZ Study Date: 22-Jun-2016 [id number]
--- NOTE | 2016-06-22 13:27 | RADRPT ---
PROCEDURE: Lexiscan myocardial perfusion study CLINICAL INDICATION: 71 -year-old patient complaining of chest pain. TECHNIQUE: Lexiscan 0.4 mg intravenously separate acquisition gated myocardial perfusion SPECT usi ng Tc 99m Myoview 31.5 mCi intravenously at stress and Tc-99m Myoview, 10.4 mCi intravenously at res t was performed using the rest/stress sequence. Poststress Myoview SPECT images were obtained in th e supine position. COMPARISON: No prior studies. FINDINGS: Perfusion images reveal no evidence of perfusion defects. Lexiscan post stress gated SPECT images demonstrate no wall motion abnormalities. IMPRESSION: 1. No evidence of perfusion defects. 2. No wall motion abnormalities. 3. The left ventricle ejection fraction at stress is greater than 70%. A call report was made to Dr. Cintron at 01:25 p.m. on June 22, 2016. RPTAT: HH .Re Song MD, Date Time Electronically viewed and signed by .Re Song MD, on 06/22/2016 13:26 .L/
[2016-06-22] MEDS ORDERED: hydrALAzine 20 MG INJ ONE (15:53)
--- NOTE | 2016-06-22 16:19 | PN ---
Date/Time of Note Date/Time of Note DATE: 06/22/16 TIME: 16:16 Assessment/Plan VTE Prophylaxis VTE Prophylaxis Intervention: heparin Lines/Catheters IV Catheter Type (from Nrs): Saline Lock Urinary Cath still in place: No Assessment/Plan Assessment/Plan 1. Hypertension, not controlled, lisinopril with metoprolol, add norvasc 2. Positive troponin, significance unclear, follow up with cardiology 3. Neck pain/upper back pain, of unknown etiology. 4. Mild hyponatremia. 5. Diabetes mellitus, declines insulins, continue metformin/glipizide Subjective 24 Hr Interval Summary Free Text/Dictation no headache Exam/Review of Systems Vital Signs Vitals Vital Signs Date Time Temp Pulse Resp B/P Pulse Ox O2 Delivery O2 Flow Rate FiO2 06/22/16 16:08 97.8 75 17 191/84 99 06/21/16 16:00 Room Air Intake and Output 06/21/16 06/21/16 06/22/16 15:00 23:00 07:00 Intake Total 640 ml 300 ml Balance 640 ml 300 ml Exam Constitutional: alert, oriented, well developed Psych: nl mood/affect, no complaints Head: atraumatic, normocephalic Eyes: EOMI, nl conjunctiva, nl lids ENMT: nl external ears & nose, nl lips & teeth, nl nasal mucosa & septum Neck: non-tender, supple Respiratory: clear to auscultation, normal air movement, No congested cough, No crackles/rales, No diminished breath sounds, No intercostal retraction, No labored breathing, No respirations, No tactile fremitus, No wheezing Cardiovascular: nl pulses, regular rate and rhythm, No S3, No S4, No bruits, No diastolic murmur, No edema, No gallop, No irregular rhythm, No jugular venous distention (JVD), No murmurs/extra sounds, No rub, No systolic murmur Gastrointestinal: nl liver, spleen, non-tender, soft, No ascites, No bowel sounds, No distended, No firm, No hepatomegaly, No mass , No rebound or guarding, No splenomegaly, No surgical scars, No tender Musculoskeletal: nl extremities to inspection Extremities: normal pulses, No calf tenderness, No clubbing, No cyanosis, No edema, No palpable cord, No pitting pedal edema, No tenderness Neurological: CANOE INSPECTOR II-XII intact, nl mental status, nl speech, nl strength Skin: nl turgor, rash or lesions Lymph: nl lymph nodes Results Result Diagram: 06/21/16 0035 06/21/16 0900 Results 24 hrs Laboratory Tests Test 06/21/16 17:12 06/21/16 20:12 06/22/16 06:55 06/22/16 08:56 Bedside Glucose 242 H 207 205 Troponin I 0.063 Test 06/22/16 13:58 Bedside Glucose 163 Medications Medications Current Medications Atorvastatin Calcium (Lipitor) 20 mg HS PO Last administered on 06/21/16 20:21 ; Admin Dose 20 MG; Start 06/21/16 at 21:00 Nitroglycerin (Nitroglycerin (Sl Tab) 0.4 Mg) 1 tab Q5M PRN SL ANGINA; Start at 05:00 Morphine Sulfate (morphine) 2 mg Q4H PRN IV PAIN LEVEL 7-10; Start 06/21/16 at 05:00 Acetaminophen (Tylenol Tab) 650 mg Q6H PRN PO PAIN AND OR ELEVATED TEMP; Start 06/21/16 at 05:00 Heparin Sodium (Porcine) (Heparin (5000 Units/0.5 ml)) 5,000 unit Q8 SC Last administered on 06/22/16 15:50; Admin Dose 5,000 UNIT; Start 06/21/16 at 06:00 Clonidine (Catapres) 0.1 mg Q6H PRN PO sbp over 160 Last administered on 15:55; Admin Dose 0.1 MG; Start 06/21/16 at 13:30 Diagnostic Test (Pha) (Accucheck) 1 ea 02 XX ; Start 06/22/16 at 02:00 Miscellaneous Information 1 ea NOTE XX ; Start 06/21/16 at 15:30 Glucose (Glutose) 15 gm Q15M PRN PO DECREASED GLUCOSE; Start 06/21/16 at 15:30 Glucose (Glutose) 22.5 gm Q15M PRN PO DECREASED GLUCOSE; Start 06/21/16 at 15: 30 Dextrose (D50w Syringe) 25 ml Q15M PRN IV DECREASED GLUCOSE; Start 06/21/16 at 15:30 Dextrose (D50w Syringe) 50 ml Q15M PRN IV DECREASED GLUCOSE; Start 06/21/16 at 15:30 Glucagon (Glucagen) 1 mg Q15M PRN IM DECREASED GLUCOSE; Start 06/21/16 at 15:30 Glucose (Glutose) 15 gm Q15M PRN BUCCAL DECREASED GLUCOSE; Start 06/21/16 at 15 :30 Metoprolol Tartrate (Lopressor) 50 mg BID PO Last administered on 06/22/16t 08: 59; Admin Dose 50 MG; Start 06/21/16 at 21:00 Lisinopril (Zestril) 20 mg BID PO ; Start 06/22/16 at 21:00 SHARON SALMON MD Jun 22, 2016 16:19
[2016-06-22] MEDS ORDERED: hydrALAzine 20 MG INJ IV PRN (16:30)
--- NOTE | 2016-06-22 17:01 | CARRPT ---
DATE OF PROCEDURE: 06/22/2016 PROCEDURE PERFORMED: Lexiscan Cardiolite stress test. REASON FOR STRESS TESTING: Positive troponin, assess significance. REQUESTING PHYSICIAN: CLYDE DAVID MD from the hospitalist service. BASELINE VITAL SIGNS AND ELECTROCARDIOGRAM: Pulse 76, blood pressure markedly elevated at to 203/87 . Baseline electrocardiogram was normal sinus rhythm at a rate of 76, normal axis, normal intervals with isolated lateral Q's and nonspecific ST findings. PROCEDURE: The patient underwent standard Lexiscan infusion protocol over 10 seconds followed by ra diolabeled tracer. The patient's test was stopped due to completion of protocol. Maximal blood pre ssure during the test 203/87. Maximum heart rate during the test 102. ELECTROCARDIOGRAM FINDINGS: During the Lexiscan infusion, the patient developed borderline ST depre ssions in the inferior lateral leads which returned to normal during recovery. The patient had occa sional PACs and rare PVC. SYMPTOMS: The patient had no complaints of chest pain or shortness of breath during stress testing. IMPRESSION: 1. Lexiscan-induced ST or T-wave changes from baseline abnormalities that are suggestive but nondia gnostic for cardiac ischemia. 2. No complaints of chest pain or shortness of breath during stress testing. 3. Rare premature ventricular contractions during stress testing. 4. Report of nuclear images to follow in separate dictation. Dictated By: KIMBERLEY ALBA/MOHIT Conf#: [id number] DID#: [id number] CC: CLYDE DAVID MD;*EndCC*
[2016-06-22] MEDS: AMLODIPINE 10 MG TAB PO SCH (18:07)
[2016-06-22] MEDS: ATORVASTATIN 20 MG TAB PO SCH (20:29)
[2016-06-22] MEDS ORDERED: glipiZIDE 5 MG TAB PO SCH (21:00)
[2016-06-23] VITALS (11 sets, daily range): BP systolic 141–227; BP diastolic 60–88; PULSE 69–91; RESP 18–20
[2016-06-23] MEDS: ACCUCHECK XX SCH (01:33)
[2016-06-23] MEDS: HEPARIN 5,000 UNIT/0.5 ML SYG SC SCH ×3 (05:26→21:23)
[2016-06-23] MEDS ORDERED: glipiZIDE 10 MG TAB PO SCH ×2 (07:30→18:05)
[2016-06-23] MEDS: metFORMIN 500 MG TAB PO SCH ×2 (08:21→18:43)
[2016-06-23] MEDS: AMLODIPINE 10 MG TAB PO SCH (08:22)
[2016-06-23] MEDS: METOPROLOL 50 MG TAB PO SCH ×2 (08:22→21:21)
[2016-06-23] MEDS: LISINOPRIL 20 MG TAB PO SCH ×2 (08:23→21:22)
[2016-06-23] MEDS: INSULIN ASPART [NOVOLOG] 3 ML PEN SC SCH ×4 (08:27→21:23)
--- NOTE | 2016-06-23 15:12 | PN ---
Date/Time of Note Date/Time of Note DATE: 06/23/16 TIME: 15:07 Assessment/Plan VTE Prophylaxis VTE Prophylaxis Intervention: heparin Lines/Catheters IV Catheter Type (from Nrs): Saline Lock Urinary Cath still in place: No Assessment/Plan Assessment/Plan 1. Hypertension, not controlled, lisinopril with metoprolol, change norvasc to procardia 2. Positive troponin, significance unclear, follow up with cardiology 3. Neck pain/upper back pain, of unknown etiology. 4. Mild hyponatremia. 5. Diabetes mellitus, declines insulins, continue metformin/glipizide, increase glipizide Subjective 24 Hr Interval Summary Free Text/Dictation no demetri pain, no headache or shortness of breath Exam/Review of Systems Vital Signs Vitals Vital Signs Date Time Temp Pulse Resp B/P Pulse Ox O2 Delivery O2 Flow Rate FiO2 06/23/16 12:12 70 06/23/16 11:55 97.8 20 166/81 97 06/21/16 16:00 Room Air Intake and Output 06/22/16 06/22/16 06/23/16 15:00 23:00 07:00 Intake Total 700 ml 200 ml Output Total 900 ml Balance -200 ml 200 ml Exam Constitutional: alert, oriented, well developed Psych: nl mood/affect, no complaints Head: atraumatic, normocephalic Eyes: EOMI, PERRL, nl conjunctiva, nl lids ENMT: mucosa pink and moist, nl external ears & nose, nl lips & teeth, nl nasal mucosa & septum Neck: non-tender, supple Respiratory: clear to auscultation, normal air movement, other, No congested cough, No crackles/rales, No diminished breath sounds, No intercostal retraction, No labored breathing, No respirations, No tactile fremitus, No wheezing Cardiovascular: nl pulses, regular rate and rhythm, No S3, No S4, No bruits, No diastolic murmur, No edema, No gallop, No irregular rhythm, No jugular venous distention (JVD), No murmurs/extra sounds, No rub, No systolic murmur Gastrointestinal: nl liver, spleen, non-tender, soft, No ascites, No bowel sounds, No distended, No firm, No hepatomegaly, No mass , No rebound or guarding, No splenomegaly, No surgical scars, No tender Musculoskeletal: nl extremities to inspection Extremities: normal pulses, No calf tenderness, No clubbing, No cyanosis, No edema, No palpable cord, No pitting pedal edema, No tenderness Neurological: RESEARCH CONSULTANT II-XII intact, nl mental status, nl speech, nl strength Skin: nl turgor, rash or lesions Lymph: nl lymph nodes Results Result Diagram: 06/21/16 0035 06/21/16 0900 Results 24 hrs Laboratory Tests Test 06/22/16 18:09 06/22/16 20:38 06/23/16 01:32 06/23/16 08:17 Bedside Glucose 276 H 242 H 187 189 Test 06/23/16 12:27 Bedside Glucose 220 Medications Medications Current Medications Atorvastatin Calcium (Lipitor) 20 mg HS PO Last administered on 06/22/16 20:29 ; Admin Dose 20 MG; Start 06/21/16 at 21:00 Nitroglycerin (Nitroglycerin (Sl Tab) 0.4 Mg) 1 tab Q5M PRN SL ANGINA; Start at 05:00 Morphine Sulfate (morphine) 2 mg Q4H PRN IV PAIN LEVEL 7-10; Start 06/21/16 at 05:00 Acetaminophen (Tylenol Tab) 650 mg Q6H PRN PO PAIN AND OR ELEVATED TEMP; Start 06/21/16 at 05:00 Heparin Sodium (Porcine) (Heparin (5000 Units/0.5 ml)) 5,000 unit Q8 SC Last administered on 06/23/16 05:26; Admin Dose 5,000 UNIT; Start 06/21/16 at 06:00 Clonidine (Catapres) 0.1 mg Q6H PRN PO sbp over 160 Last administered on 15:55; Admin Dose 0.1 MG; Start 06/21/16 at 13:30 Diagnostic Test (Pha) (Accucheck) 1 ea 02 XX Last administered on 06/23/16 01: 33; Admin Dose 1 EA; Start 06/22/16 at 02:00 Miscellaneous Information 1 ea NOTE XX ; Start 06/21/16 at 15:30 Glucose (Glutose) 15 gm Q15M PRN PO DECREASED GLUCOSE; Start 06/21/16 at 15:30 Glucose (Glutose) 22.5 gm Q15M PRN PO DECREASED GLUCOSE; Start 06/21/16 at 15: 30 Dextrose (D50w Syringe) 25 ml Q15M PRN IV DECREASED GLUCOSE; Start 06/21/16 at 15:30 Dextrose (D50w Syringe) 50 ml Q15M PRN IV DECREASED GLUCOSE; Start 06/21/16 at 15:30 Glucagon (Glucagen) 1 mg Q15M PRN IM DECREASED GLUCOSE; Start 06/21/16 at 15:30 Glucose (Glutose) 15 gm Q15M PRN BUCCAL DECREASED GLUCOSE; Start 06/21/16 at 15 :30 Metoprolol Tartrate (Lopressor) 50 mg BID PO Last administered on 06/23/16 08: 22; Admin Dose 50 MG; Start 06/21/16 at 21:00 Lisinopril (Zestril) 20 mg BID PO Last administered on 06/23/16 08:23; Admin Dose 20 MG; Start 06/22/16 at 21:00 Glipizide (Glucotrol) 5 mg HS PO Last administered on 06/22/16 20:30; Admin Dose 5 MG; Start 06/22/16 at 21:00 Hydralazine HCl (Apresoline) 5 mg Q6H PRN IV sbp>160; Start 06/22/16 at 16:30 Nifedipine (Procardia Xl) 60 mg DAILY PO ; Start 06/23/16 at 15:30; Status SHARON HIRSCH MD Jun 23, 2016 15:12
[2016-06-23] MEDS: NIFEdipine (XL) 60 MG TAB PO SCH (15:41)
--- NOTE | 2016-06-23 18:17 | CONS ---
Date/Time of Note Date/Time of Note DATE: 06/23/16 TIME: 18:11 Assessment/Plan Assessment/Plan Chief Complaint/Hosp Course IMPRESSION: 1. Positive troponin, assess significance.-now trended negative/Lexiscan negative for ischemia 2. Abnormal electrocardiogram with inferolateral T-wave inversions, assess for true acute coronary syndrome. 3. Hypertensive urgency emergency-continues to be elevated 4. Diabetes mellitus. 5. Dyslipidemia. 6. Generalized weakness. Rule out true acute coronary syndrome. 7. Hyponatremia. Recc: -Tele -Continue BB/ACEI -Now started on procardia -Continue statin -start asa Problems: Consultation Date/Type/Reason Admit Date/Time Jun 21, 2016 at 02:07 Initial Consult Date 06/21/2016 Type of Consultation: Cardiology Reason for Consultation positive troponin Referring Provider: TEMI CALZADA MD Exam/Review of Systems Vital Signs Vitals Vital Signs Date Time Temp Pulse Resp B/P Pulse Ox O2 Delivery O2 Flow Rate FiO2 06/23/16 16:10 69 06/23/16 11:55 97.8 20 166/81 97 06/21/16 16:00 Room Air Intake and Output 06/22/16 06/22/16 06/23/16 14:59 22:59 06:59 Intake Total 700 ml 200 ml Output Total 900 ml Balance -200 ml 200 ml Exam Review of Systems: CONSTITUTIONAL: No fevers, chills. PULMONARY: No sob CARDIOVASCULAR: No chest pain/palpitations GASTROINTESTINAL: No nausea/vomiting. GENITOURINARY: No hematuria/dysuria. MUSCULOSKELETAL: No myagias/arthalgias. PSYCHIATRIC: The patient denies depression. NEUROLOGIC: lethargic Constitutional: alert Psych: no complaints Head: normocephalic ENMT: mucosa pink and moist Neck: jvd, supple Respiratory: diminished breath sounds Cardiovascular: regular rate and rhythm Gastrointestinal: non-tender, soft Musculoskeletal: muscle tone Extremities: normal pulses Neurological: other (No focal deficits) Results Result Diagram: 06/21/16 0035 06/21/16 0900 Results 24 hrs Laboratory Tests Test 06/22/16 20:38 06/23/16 01:32 06/23/16 08:17 06/23/16 12:27 Bedside Glucose 242 H 187 189 220 Medications Medications Current Medications Atorvastatin Calcium (Lipitor) 20 mg HS PO Last administered on 06/22/16 20:29 ; Admin Dose 20 MG; Start 06/21/16 at 21:00 Nitroglycerin (Nitroglycerin (Sl Tab) 0.4 Mg) 1 tab Q5M PRN SL ANGINA; Start at 05:00 Morphine Sulfate (morphine) 2 mg Q4H PRN IV PAIN LEVEL 7-10; Start 06/21/16 at 05:00 Acetaminophen (Tylenol Tab) 650 mg Q6H PRN PO PAIN AND OR ELEVATED TEMP; Start 06/21/16 at 05:00 Heparin Sodium (Porcine) (Heparin (5000 Units/0.5 ml)) 5,000 unit Q8 SC Last administered on 06/23/16 15:27; Admin Dose 5,000 UNIT; Start 06/21/16 at 06:00 Clonidine (Catapres) 0.1 mg Q6H PRN PO sbp over 160 Last administered on 15:55; Admin Dose 0.1 MG; Start 06/21/16 at 13:30 Diagnostic Test (Pha) (Accucheck) 1 ea 02 XX Last administered on 06/23/16 01: 33; Admin Dose 1 EA; Start 06/22/16 at 02:00 Miscellaneous Information 1 ea NOTE XX ; Start 06/21/16 at 15:30 Glucose (Glutose) 15 gm Q15M PRN PO DECREASED GLUCOSE; Start 06/21/16 at 15:30 Glucose (Glutose) 22.5 gm Q15M PRN PO DECREASED GLUCOSE; Start 06/21/16 at 15: 30 Dextrose (D50w Syringe) 25 ml Q15M PRN IV DECREASED GLUCOSE; Start 06/21/16 at 15:30 Dextrose (D50w Syringe) 50 ml Q15M PRN IV DECREASED GLUCOSE; Start 06/21/16 at 15:30 Glucagon (Glucagen) 1 mg Q15M PRN IM DECREASED GLUCOSE; Start 06/21/16 at 15:30 Glucose (Glutose) 15 gm Q15M PRN BUCCAL DECREASED GLUCOSE; Start 06/21/16 at 15 :30 Metoprolol Tartrate (Lopressor) 50 mg BID PO Last administered on 06/23/16 08: 22; Admin Dose 50 MG; Start 06/21/16 at 21:00 Lisinopril (Zestril) 20 mg BID PO Last administered on 06/23/16 08:23; Admin Dose 20 MG; Start 06/22/16 at 21:00 Hydralazine HCl (Apresoline) 5 mg Q6H PRN IV sbp>160; Start 06/22/16 at 16:30 Nifedipine (Procardia Xl) 60 mg DAILY PO Last administered on 06/23/16 15:41; Admin Dose 60 MG; Start 06/23/16 at 15:30 Insulin Glargine (Lantus) 20 unit DAILY@20 SC ; Start 06/23/16 at 20:00 KIMBERLEY OSBORN Jun 23, 2016 18:17
[2016-06-23] MEDS ORDERED: hydrALAzine 20 MG INJ IV PRN (19:30)
[2016-06-23] MEDS ORDERED: INSULIN GLARGINE [LANtus] 3 ML PEN SC SCH (20:00)
[2016-06-23] MEDS: ATORVASTATIN 20 MG TAB PO SCH (21:21)
[2016-06-24] VITALS (10 sets, daily range): BP systolic 125–196; BP diastolic 58–84; PULSE 72–88; RESP 17–20
[2016-06-24] MEDS: ACCUCHECK XX SCH (02:00)
[2016-06-24] MEDS: HEPARIN 5,000 UNIT/0.5 ML SYG SC SCH ×2 (06:19→14:00)
[2016-06-24 06:22] LABS: POTASSIUM 4.1 mmol/L (3.5-5.1)
[2016-06-24 06:24] LABS: CREATININE 0.85 mg/dl (0.44-1.00)
[2016-06-24 06:25] LABS: CALCIUM 9.7 mg/dl (8.4-10.2)
[2016-06-24] MEDS: metFORMIN 500 MG TAB PO SCH (08:17)
[2016-06-24] MEDS: INSULIN ASPART [NOVOLOG] 3 ML PEN SC SCH ×2 (08:21→12:23)
[2016-06-24] MEDS: LISINOPRIL 20 MG TAB PO SCH (09:02)
[2016-06-24] MEDS: NIFEdipine (XL) 60 MG TAB PO SCH (09:02)
[2016-06-24] MEDS: METOPROLOL 50 MG TAB PO SCH (09:02)
[2016-06-24] MEDS ORDERED: LANT3I SC (15:12)
[2016-06-24] MEDS ORDERED: LISI20TA11 PO (15:12)
[2016-06-24] MEDS ORDERED: NOVO3I SC (15:12)
[2016-06-24] MEDS ORDERED: NIFE60TA11 PO (15:12)
--- NOTE | 2016-06-24 15:21 | DS ---
Date/Time of Note Date/Time of Note DATE: 06/24/16 TIME: 15:14 Discharge Summary Admission/Discharge Info Admit Date/Time Jun 21, 2016 at 02:07 Discharge Date/Time Final Diagnosis 1. Hypertension, controlled, follow up with PCP 2. Positive troponin, negative stress thallium test 3. Mild hyponatremia, stable 4. Diabetes mellitus, metformin/lantus and ISS, follow up with PCP Procedures [place] [address] Radiology Main Line: [phone] DIAGNOSTIC IMAGING REPORT Patient: HAIDER ARMENDARIZ : 1945 Age: 71 Sex: F MR #: [id number] DOS: 06/21/16 0000 Ordering MD: KIMBERLEY CINTRON MD Location: [facility] [place] Room/Bed: [facility] PROCEDURE: Lexiscan myocardial perfusion study CLINICAL INDICATION: 71 -year-old patient complaining of chest pain. TECHNIQUE: Lexiscan 0.4 mg intravenously separate acquisition gated myocardial perfusion SPECT using Tc 99m Myoview 31.5 mCi intravenously at stress and Tc-99m Myoview, 10.4 mCi intravenously at rest was performed using the rest/stress sequence. Poststress Myoview SPECT images were obtained in the supine position. COMPARISON: No prior studies. FINDINGS: Perfusion images reveal no evidence of perfusion defects. Lexiscan post stress gated SPECT images demonstrate no wall motion abnormalities. IMPRESSION: 1. No evidence of perfusion defects. 2. No wall motion abnormalities. 3. The left ventricle ejection fraction at stress is greater than 70%. A call report was made to Dr. Cintron at 01:25 p.m. on June 22, 2016. RPTAT: HH .Re Song MD, Date Time Electronically viewed and signed by .Re Song MD, on 06/22/2016 13:26 .L/ Hospital Course The patient is a 71-year-old male with a history of hypertension and diabetes who presented to the emergency department with family complaining of generalized weakness and elevated blood pressure. She also reported mild neck pain. Denied any chest pain, shortness of breath, fever, chills, nausea, vomiting, abdominal pain, or urinary symptoms.When she presented to the ER, blood pressure was 183/76 and laboratory value was notable for a troponin of 0.130. Sodium 132, chloride 93. Otherwise, CBC and CMP are within normal limits. For positive troponin, patient has a negative stress thallium test. For hypertension, medications are adjusted. Patient is on lisinopril and procardia. BP is 135/63. For diabetes, patient is put on lantus and insulin sliding scale besides metformin. Home Meds Active Scripts Insulin Glargine* (Lantus*) 100 Unit/Ml Soln, 20 UNIT SC DAILY@20 for 30 Days Prov:SHARON SALMON MD 06/24/16 Nifedipine (Nifedical Xl) 60 Mg Tab.er.24, 60 MG PO DAILY for 30 Days, TAB Prov:SHARON SALMON MD 06/24/16 Lisinopril* (Lisinopril*) 20 Mg Tablet, 20 MG PO BID for 30 Days, TAB Prov:SHARON SALMON MD 06/24/16 Insulin Aspart* (Novolog Insulin Pen*) 100 Unit/Ml Soln, 0 UNIT SC WITH MEALS BEDTIME for 30 Days Prov:SHARON SALMON MD 06/24/16 Reported Medications Metformin Hcl (Glucophage) 500 Mg Tablet, 850 MG PO WITH MEALS, #90 TAB 06/21/16 Discontinued Reported Medications Glyburide* (Glyburide*) 5 Mg Tablet, 5 MG PO TID, #30 TAB 06/21/16 Metoprolol Tartrate (Metoprolol Tartrate) 100 Mg Tablet, 100 MG PO BID, #60 TAB 06/21/16 Enalapril Maleate* (Vasotec*) 10 Mg Tablet, 10 MG PO BID, TAB 06/21/16 Discontinued Scripts Cephalexin* (Keflex*) 500 Mg Capsule, 500 MG PO TID for 5 Days, CAP Prov:DEMETRIO TRINIDAD MD 06/21/16 Follow-up Plan PCP 1 week Pending Labs Laboratory Tests Test 06/23/16 18:39 06/23/16 21:20 06/24/16 05:15 06/24/16 07:51 Bedside Glucose 202mg/dL (70-220) 198mg/dL (70-220) 204mg/dL (70-220) Anion Gap 21 (8-16) Blood Urea Nitrogen 16mg/dl (7-20) Calcium Level 9.7mg/dl (8.4-10.2) Carbon Dioxide Level 23mmol/L (21-31) Chloride Level 92mmol/L (97-110) Creatinine 0.85mg/dl (0.44-1.00) Glucose Level 183mg/dl (70-220) Potassium Level 4.1mmol/L (3.5-5.1) Sodium Level 132mmol/L (135-144) Test 06/24/16 12:20 Bedside Glucose 192mg/dL (70-220) SHARON SALMON MD Jun 24, 2016 15:21
--- NOTE | 2016-06-24 15:48 | CONS ---
Date/Time of Note Date/Time of Note DATE: 06/24/16 TIME: 15:46 Assessment/Plan Assessment/Plan Chief Complaint/Hosp Course IMPRESSION: 1. Positive troponin, assess significance.-now trended negative/Lexiscan negative for ischemia 2. Abnormal electrocardiogram with inferolateral T-wave inversions, assess for true acute coronary syndrome. 3. Hypertensive urgency emergency-Now improved 4. Diabetes mellitus. 5. Dyslipidemia. 6. Generalized weakness. Rule out true acute coronary syndrome. 7. Hyponatremia. Recc: -Tele -Continue BB/ACEI/Procardia XL and follow BP closely -Continue statin/asa Problems: Consultation Date/Type/Reason Admit Date/Time Jun 21, 2016 at 02:07 Initial Consult Date 06/21/2016 Type of Consultation: Cardiology Reason for Consultation positive troponin Referring Provider: TEMI CALZADA MD Exam/Review of Systems Vital Signs Vitals Vital Signs Date Time Temp Pulse Resp B/P Pulse Ox O2 Delivery O2 Flow Rate FiO2 06/24/16 12:34 76 06/24/16 12:02 98.0 18 135/63 96 06/24/16 04:00 Room Air Intake and Output 06/23/16 06/23/16 06/24/16 15:00 23:00 07:00 Intake Total 800 ml 400 ml Balance 800 ml 400 ml Exam Review of Systems: CONSTITUTIONAL: No fevers, chills. PULMONARY: No sob CARDIOVASCULAR: No chest pain/palpitations GASTROINTESTINAL: No nausea/vomiting. GENITOURINARY: No hematuria/dysuria. MUSCULOSKELETAL: No myagias/arthalgias. PSYCHIATRIC: The patient denies depression. NEUROLOGIC: No weakness Constitutional: alert Psych: no complaints Head: normocephalic ENMT: mucosa pink and moist Neck: jvd (9 cnm water), supple Respiratory: diminished breath sounds Cardiovascular: regular rate and rhythm Gastrointestinal: non-tender, soft Musculoskeletal: muscle tone (normal) Extremities: edema (none) Neurological: other (NO focal deficits) Results Result Diagram: 06/21/16 0035 06/24/16 0515 Results 24 hrs Laboratory Tests Test 06/23/16 18:39 06/23/16 21:20 06/24/16 05:15 06/24/16 07:51 Bedside Glucose 202 198 204 Anion Gap 21 H Blood Urea Nitrogen 16 Calcium Level 9.7 Carbon Dioxide Level 23 Chloride Level 92 L Creatinine 0.85 Glucose Level 183 Potassium Level 4.1 Sodium Level 132 L Test 06/24/16 12:20 Bedside Glucose 192 Medications Medications Current Medications Atorvastatin Calcium (Lipitor) 20 mg HS PO Last administered on 06/23/16 21:21 ; Admin Dose 20 MG; Start 06/21/16 at 21:00 Nitroglycerin (Nitroglycerin (Sl Tab) 0.4 Mg) 1 tab Q5M PRN SL ANGINA; Start at 05:00 Morphine Sulfate (morphine) 2 mg Q4H PRN IV PAIN LEVEL 7-10; Start 06/21/16 at 05:00 Acetaminophen (Tylenol Tab) 650 mg Q6H PRN PO PAIN AND OR ELEVATED TEMP; Start 06/21/16 at 05:00 Heparin Sodium (Porcine) (Heparin (5000 Units/0.5 ml)) 5,000 unit Q8 SC Last administered on 06/24/16 06:19; Admin Dose 5,000 UNIT; Start 06/21/16 at 06:00 Clonidine (Catapres) 0.1 mg Q6H PRN PO sbp over 160 Last administered on 15:55; Admin Dose 0.1 MG; Start 06/21/16 at 13:30 Diagnostic Test (Pha) (Accucheck) 1 ea 02 XX Last administered on 06/23/16 01: 33; Admin Dose 1 EA; Start 06/22/16 at 02:00 Miscellaneous Information 1 ea NOTE XX ; Start 06/21/16 at 15:30 Glucose (Glutose) 15 gm Q15M PRN PO DECREASED GLUCOSE; Start 06/21/16 at 15:30 Glucose (Glutose) 22.5 gm Q15M PRN PO DECREASED GLUCOSE; Start 06/21/16 at 15: 30 Dextrose (D50w Syringe) 25 ml Q15M PRN IV DECREASED GLUCOSE; Start 06/21/16 at 15:30 Dextrose (D50w Syringe) 50 ml Q15M PRN IV DECREASED GLUCOSE; Start 06/21/16 at 15:30 Glucagon (Glucagen) 1 mg Q15M PRN IM DECREASED GLUCOSE; Start 06/21/16 at 15:30 Glucose (Glutose) 15 gm Q15M PRN BUCCAL DECREASED GLUCOSE; Start 06/21/16 at 15 :30 Metoprolol Tartrate (Lopressor) 50 mg BID PO Last administered on 06/24/16 09: 02; Admin Dose 50 MG; Start 06/21/16 at 21:00 Lisinopril (Zestril) 20 mg BID PO Last administered on 06/24/16 09:02; Admin Dose 20 MG; Start 06/22/16 at 21:00 Nifedipine (Procardia Xl) 60 mg DAILY PO Last administered on 06/24/16 09:02; Admin Dose 60 MG; Start 06/23/16 at 15:30 Hydralazine HCl (Apresoline) 10 mg Q4H PRN IV SBP>170 Last administered on 21:22; Admin Dose 10 MG; Start 06/23/16 at 19:30 Insulin Glargine (Lantus) 24 unit DAILY@20 SC ; Start 06/24/16 at 20:00 KIMBERLEY OSBORN Jun 24, 2016 15:48
[2016-06-24] MEDS ORDERED: INSULIN GLARGINE [LANtus] 3 ML PEN SC SCH (20:00)
== END 2016-06-24 18:13 | disposition home or self-care (01) | DRG 305 ==
LOC: E/R 20:30 → MS4 06-21 02:07
PROVIDERS: ADMIT Internal Medicine; ATTEND Internal Medicine
DX: I16.0 Hypertensive urgency (principal); I24.8 Other forms of acute ischemic heart disease; E11.9 Type 2 diabetes mellitus without complications; E87.1 Hypo-osmolality and hyponatremia; I10 Essential (primary) hypertension; M54.2 Cervicalgia; M54.9 Dorsalgia, unspecified
CPT/HCPCS: 36415; 71010; 78452; 80048; 80053; 80061; 81001; 81003; 82962; 83036; 83690; 84443; 84484; 85025; 93005; 93017; 93306; 96374; 96375; A9500; A9505; J0360; J1815; J1885; J2405; J2785; J7030; J7042

== ENCOUNTER 2016-10-09 11:43 | Inpatient (IN) | payer OTHER ==
[~2016-10-09] VITALS: Ht 157.5 cm; Wt 76.8 kg
[~2016-10-09 11:43] MED LIST: LANT3I SC; LISI20TA11 PO; METF500T PO; NIFE60TA11 PO; NOVO3I SC
[2016-10-09] MEDS: SOD CHLORIDE 0.9% 1,000 ML IV STA ×2 (12:29→12:51)
[2016-10-09] MEDS ORDERED: DILTIAZEM 25 MG INJ IV ONE (12:30)
[2016-10-09] MEDS ORDERED: ASPIRIN 81 MG TAB PO ONE (12:30)
[2016-10-09 12:50] LABS: ADD SCAN DIFF NO
[2016-10-09 12:55] LABS: BASOPHIL # 0.1 10^3/ul (0.0-0.1); BASOPHILS % 0.6 % (0.0-2.0); EOSINOPHILS # 0.1 10^3/ul (0.0-0.5); EOSINOPHILS % 0.7 % (0.0-7.0); HEMATOCRIT 39.3 % (37.0-47.0); LYMPHOCYTES # 1.4 10^3/ul (0.8-2.9); LYMPHOCYTES % 11.3 % (15.0-51.0); MEAN CORPUSCULAR HEMOGLOBIN 26.7 pg (29.0-33.0); MEAN CORPUSCULAR HGB CONC 33.1 g/dl (32.0-37.0); MEAN CORPUSCULAR VOLUME 80.7 fl (82.0-101.0); MEAN PLATELET VOLUME 10.7 fl (7.4-10.4); MONOCYTE # 0.7 10^3/ul (0.3-0.9); MONOCYTES % 5.7 % (0.0-11.0); NEUTROPHIL # 10.2 10^3/ul (1.6-7.5); NEUTROPHILS % 81.3 % (39.0-77.0); PLATELET COUNT 353 10^3/UL (140-415); RED BLOOD COUNT 4.87 10^6/ul (4.20-5.40); RED CELL DISTRIBUTION WIDTH 12.5 % (11.5-14.5); WHITE BLOOD COUNT 12.5 10^3/ul (4.8-10.8)
[2016-10-09] MEDS ORDERED: NIFE90TA11 PO (12:56)
[2016-10-09] MEDS ORDERED: LISI40TA9 PO (12:56)
[2016-10-09 12:57] LABS: ADD UMIC NO; URINE BILIRUBIN (Dip) NEGATIVE (NEGATIVE); URINE BLOOD (Dip) NEGATIVE (NEGATIVE); URINE COLOR LT. YELLOW (YELLOW); URINE GLUCOSE (Dip) >=1000 % (NEGATIVE); URINE KETONES (Dip) NEGATIVE (NEGATIVE); URINE LEUKOCYTE ESTERASE (Dip) NEGATIVE (NEGATIVE); URINE NITRITE (Dip) NEGATIVE (NEGATIVE); URINE TOTAL PROTEIN (Dip) NEGATIVE (NEGATIVE); URINE UROBILINOGEN (Dip) 0.2 E.U./dL (0.1-1.0)
[2016-10-09] MEDS ORDERED: SOD CHLORIDE 0.9% 1,000 ML IV SCH (13:00)
[2016-10-09 13:10] LABS: INR 0.98
[2016-10-09 13:15] LABS: ALBUMIN 4.2 g/dl (3.3-4.9); CHLORIDE 96 mmol/L (97-110)
[2016-10-09 13:16] LABS: POTASSIUM 4.6 mmol/L (3.5-5.1); SODIUM 132 mmol/L (135-144)
[2016-10-09 13:18] LABS: ALBUMIN/GLOBULIN RATIO 1.16; ALKALINE PHOSPHATASE 100 IU/L (42-121); ANION GAP 20 (8-16); ASPARTATE AMINO TRANSFERASE 20 IU/L (15-46); BILIRUBIN,INDIRECT 0.2 mg/dl (0-1.1); BILIRUBIN,TOTAL 0.2 mg/dl (0.2-1.3); BLOOD UREA NITROGEN 26 mg/dl (7-20); CARBON DIOXIDE 21 mmol/L (21-31); CREATININE 0.72 mg/dl (0.44-1.00); TOTAL PROTEIN 7.8 g/dl (6.1-8.1)
[2016-10-09 13:19] LABS: ALANINE AMINOTRANSFERASE 28 IU/L (13-69); CALCIUM 9.5 mg/dl (8.4-10.2); GLUCOSE 373 mg/dl (70-220)
[2016-10-09 13:27] LABS: B-TYPE NATRIURETIC PEPTIDE 1450 PG/ML (0-125)
[2016-10-09 13:44] LABS: TROPONIN-I < 0.012 ng/ml (0.00-0.12)
--- NOTE | 2016-10-09 14:03 | ERA ---
ER Documentation Chief Complaint Date/Time DATE: 10/09/16 TIME: 13:59 Chief Complaint palpitations, weakness, x 2 weeks HPI 71-year-old woman complaining of 2 days of palpitations intermittent chest pain , and generalized weakness. She does have a history of myocardial infarction but denies history of irregular heartbeat. She denies calf or leg swelling, no fevers or chills, no shortness of breath, no cough, no abdominal pain, no complaints of vomiting or diarrhea. ROS All systems reviewed and are negative except as per history of present illness. Medications Home Meds Active Scripts Insulin Glargine* (Lantus*) 100 Unit/Ml Soln, 20 UNIT SC DAILY@20 for 30 Days Prov:SHARON SALMON MD 06/24/16 Nifedipine (Nifedical Xl) 60 Mg Tab.er.24, 60 MG PO DAILY for 30 Days, TAB Prov:SHARON SALMON MD 06/24/16 Lisinopril* (Lisinopril*) 20 Mg Tablet, 20 MG PO BID for 30 Days, TAB Prov:SHARON SALMON MD 06/24/16 Insulin Aspart* (Novolog Insulin Pen*) 100 Unit/Ml Soln, 0 UNIT SC WITH MEALS BEDTIME for 30 Days Prov:SHARON SALMON MD 06/24/16 Reported Medications Nifedipine* (Nifedipine ER*) 90 Mg Tablet.er, 90 MG PO DAILY, TAB 10/09/16 Lisinopril* (Lisinopril*) 40 Mg Tablet, 40 MG PO DAILY, #30 TAB 10/09/16 Discontinued Reported Medications Metformin Hcl (Glucophage) 500 Mg Tablet, 850 MG PO WITH MEALS, #90 TAB 06/21/16 Allergies Allergies: Coded Allergies: No Known Allergy (Unverified , 06/20/16) PMhx/Soc Previous myocardial infarction, hypertension, diabetes mellitus, dyslipidemia, hyponatremia, obesity History of Surgery: No (GALL BLADDER REMOVAL) Anesthesia Reaction: No Hx Neurological Disorder: No Hx Respiratory Disorders: No Hx Cardiac Disorders: Yes (HTN) Hx Psychiatric Problems: No Hx Miscellaneous Medical Probl: No Hx Alcohol Use: No Hx Substance Use: No Hx Tobacco Use: No Smoking Status: Never smoker FmHx Family History: No diabetes Physical Exam Vitals Vital Signs Date Time Temp Pulse Resp B/P Pulse Ox O2 Delivery O2 Flow Rate FiO2 10/09/16 13:31 82 18 124/60 98 Room Air 10/09/16 11:47 98.1 129 18 133/69 99 Physical Exam GENERAL: Well-developed, well-nourished, well-hydrated, in no apparent distress , looks nontoxic in appearance, afebrile HEENT: Moist mucous membranes, pink conjunctiva, no cervical spine tenderness or step-off deformities, no goiter, no jaundice or icterus, extraocular movements intact without pain. No submandibular induration, and no pharyngeal erythema NEURO: Alert and oriented 3, cranial nerves II through XII intact bilaterally, pupils equal round reactive to light, no focal deficits or facial asymmetry, sensation intact distally Strength 5/5 in upper and lower extremities bilaterally CARDIAC: Tachycardic, no murmurs rubs or gallops LUNGS: Clear bilaterally no wheezing crackles or stridor ABDOMEN: Soft nontender, no guarding, no rigidity, no rebound, no psoas sign no obturator sign. Normoactive bowel sounds SKIN: Warm and dry to touch, no abrasions, contusions, or hematomas, no lacerations, no ecchymosis, no target lesions, and without ulcers EXTREMITIES: No clubbing cyanosis or edema, calves are bilaterally symmetrical, no Homans sign, no popliteal cord sign. Distal pulses equal and bilateral PSYCH: Normal affect without agitation or irritability Result Diagram: 10/09/16 1230 10/09/16 1230 Results 24 hrs Laboratory Tests Test 10/09/16 12:30 10/09/16 16:08 White Blood Count 12.510^3/ul Red Blood Count 4.8710^6/ul Hemoglobin 13.0g/dl Hematocrit 39.3% Mean Corpuscular Volume 80.7fl Mean Corpuscular Hemoglobin 26.7pg Mean Corpuscular Hemoglobin Concent 33.1g/dl Red Cell Distribution Width 12.5% Platelet Count 52867^3/UL Mean Platelet Volume 10.7fl Neutrophils % 81.3% Lymphocytes % 11.3% Monocytes % 5.7% Eosinophils % 0.7% Basophils % 0.6% Nucleated Red Blood Cells % 0.0/100WBC Neutrophils # 10.210^3/ul Lymphocytes # 1.410^3/ul Monocytes # 0.710^3/ul Eosinophils # 0.110^3/ul Basophils # 0.110^3/ul Nucleated Red Blood Cells # 0.010^3/ul Prothrombin Time 13.0Sec Prothrombin Time Ratio 1.0 INR International Normalized Ratio 0.98 Urine Color LT. YELLOW Urine Clarity CLEAR Urine pH 5.0 Urine Specific [place] <=1.005 Urine Ketones NEGATIVE Urine Nitrite NEGATIVE Urine Bilirubin NEGATIVE Urine Urobilinogen 0.2 E.U./dL Urine Leukocyte Esterase NEGATIVE Urine Hemoglobin NEGATIVE Urine Glucose >=1000% Urine Total Protein NEGATIVE Sodium Level 132mmol/L Potassium Level 4.6mmol/L Chloride Level 96mmol/L Carbon Dioxide Level 21mmol/L Anion Gap 20 Blood Urea Nitrogen 26mg/dl Creatinine 0.72mg/dl Glucose Level 373mg/dl Calcium Level 9.5mg/dl Total Bilirubin 0.2mg/dl Direct Bilirubin 0.00mg/dl Indirect Bilirubin 0.2mg/dl Aspartate Amino Transf (AST/SGOT) 20IU/L Alanine Aminotransferase (ALT/SGPT) 28IU/L Alkaline Phosphatase 100IU/L Troponin I < 0.012ng/ml B-Type Natriuretic Peptide 1450PG/ML Total Protein 7.8g/dl Albumin 4.2g/dl Globulin 3.60g/dl Albumin/Globulin Ratio 1.16 Lipase 113U/L Bedside Glucose 259mg/dL Current Medications Medications (Trade) Dose Ordered Sig/Bryan Route PRN Reason Start Time Stop Time Status Last Admin Dose Admin Sodium Chloride (NS) 1,000 ml @ 1,000 mls/hr Q1H STAT IV 10/09/16 12:07 10/09/16 13:06 DC 10/09/16 12:51 Aspirin (Aspirin) 324 mg ONCE ONCE PO 10/09/16 12:30 10/09/16 12:31 DC 10/09/16 12:28 Diltiazem HCl 20 mg 20 mg ONCE ONCE IV 10/09/16 12:30 10/09/16 12:31 DC 10/09/16 12:28 Sodium Chloride 1,000 ml @ 1,000 mls/hr Q1H IV 10/09/16 13:00 10/09/16 13:59 DC Sodium Chloride (NS) 1,000 ml @ 125 mls/hr Q8H IV 10/09/16 16:00 10/10/16 07:59 5/21/17 16:12 Insulin Glargine (Lantus) 20 unit ONCE ONCE SC 10/09/16 16:00 10/09/16 16:01 DC 10/09/16 16:14 Miscellaneous Information 1 ea NOTE XX 10/09/16 16:00 Glucose (Glutose) 15 gm Q15M PRN PO DECREASED GLUCOSE 10/09/16 16:00 Glucose (Glutose) 22.5 gm Q15M PRN PO DECREASED GLUCOSE 10/09/16 16:00 Dextrose (D50w Syringe) 25 ml Q15M PRN IV DECREASED GLUCOSE 10/09/16 16:00 Dextrose (D50w Syringe) 50 ml Q15M PRN IV DECREASED GLUCOSE 10/09/16 16:00 Glucagon (Glucagen) 1 mg Q15M PRN IM DECREASED GLUCOSE 10/09/16 16:00 Glucose (Glutose) 15 gm Q15M PRN BUCCAL DECREASED GLUCOSE 10/09/16 16:00 Procedures/MDM IV line was established patient was placed on alarm security or surveillance monitor rhythm strip revealed a irregular narrow complex tachycardia at about 130 bpm. Patient was afebrile. EKG #1 performed, read by me revealed an atrial fibrillation with rapid ventricular rate at 126 bpm, normal axis, narrow QRS complex, no concerning ST elevations or depressions noted. Patient was given 1 L normal saline intravenously, aspirin 324 milligrams p.o. for cardioprotective measures. For continued tachycardia and complaints of palpitation I administered diltiazem 20 mg IV 1. EKG #2 post diltiazem therapy revealed an atrial fibrillation rate controlled at 86 bpm, normal axis, narrow QRS complex, no concerning ST elevations or depressions noted. Critical Care: Time: 35 minutes, this was time separate from other procedures. Treatments/Evaluations: Close monitoring and treatment of unstable vital signs, cardiorespiratory, and neurologic status, while maintaining tight balance of fluid, respiratory, and cardiac interventions. CBC was unremarkable, electrolytes revealed dehydration with a BUN/creatinine of 26/0.7 as well as hyponatremia at 132. Blood sugar elevated, liver function tests normal, BNP elevated, troponin negative. Departure Diagnosis: Primary Impression: New onset atrial fibrillation Additional Impressions: Atrial fibrillation with RVR Chest pain Qualified Code: R07.9 - Chest pain, unspecified type Hyponatremia Dehydration Condition: DEMETRIO Nuñez MD October 09, 2016 14:03
--- NOTE | 2016-10-09 15:52 | RADRPT ---
PROCEDURE: XR Chest. CLINICAL INDICATION: Shortness of breath. TECHNIQUE: A single portable view of the chest was obtained. COMPARISON: 06/21/2016 FINDINGS: The cardiomediastinal silhouette is within normal limits. The lungs and pleural spaces are clear. The soft tissues and osseous structures are unremarkable. IMPRESSION: No acute cardiopulmonary disease. RPTAT: HPNM Physician Mary Date Time Electronically viewed and signed by Mak Marshall Physician on 10/09/2016 15:52 /
[2016-10-09] MEDS ORDERED: DEXTROSE 50% 50 ML SYRINGE IV PRN ×2 (16:00)
[2016-10-09] MEDS ORDERED: GLUCOSE GEL 15 GRAM TUBE PO PRN ×2 (16:00)
[2016-10-09] MEDS ORDERED: GLUCOSE GEL 15 GRAM TUBE BUCCAL PRN (16:00)
[2016-10-09] MEDS ORDERED: INSULIN GLARGINE [LANtus] 3 ML PEN SC ONE (16:00)
[2016-10-09] MEDS ORDERED: GLUCAGON 1 MG INJ IM PRN (16:00)
--- NOTE | 2016-10-09 16:05 | HP ---
Date/Time of Note Date/Time of Note DATE: 10/09/16 TIME: 15:49 Assessment/Plan VTE Prophylaxis VTE Prophylaxis Intervention: LMWH Assessment/Plan Assessment/Plan 71-year-old female who presents to the emergency room with palpitations and dizziness and a recent diagnosis of atrial fibrillation now managed as follows: 1. Atrial fibrillation with rapid ventricular response 2. Systemic inflammatory response syndrome secondary to #1 3. Uncontrolled diabetes mellitus last A1c 8.5 in May 2016 4. Hyponatremia likely pseudohyponatremia from hyperglycemia 5. Weakness and lethargy rule out acute coronary syndrome secondary to #1 Plan: * Admit to telemetry floor/add beta-errol to regimen/rule out acute coronary syndrome /cardiology consultation * Patient had recent echo in May that showed no valvular deficits and good ejection fraction as well as no wall motion abnormalities * Will reduce dose of nifedipine slightly to accommodate beta-errol therapy * Continue aspirin /get lipid profile - if abnormal add statin to her regimen * Gentle IV fluid hydration with normal saline /resume Lantus and NovoLog at home doses /titrate for improved control * Carb controlled diet /sliding scale insulin * Patient will need full anticoagulation therapy, we will however hold off on this until seen by cardiology, will have to make sure that there is no bleeding risk or any other reason it was not started in the past. * Serial labs /supportive care Prophylaxis: Lovenox /Pepcid HPI/ROS Admit Date/Time Admit Date/Time October 09, 2016 Hx of Present Illness PRESENTING COMPLAINT: Palpitation HISTORY OF PRESENTING COMPLAINT: This is a 71-year-old with a past medical history of high blood pressure and diabetes who presents to the ER brought in by her family because of palpitations. She also has lethargy as well as some dizziness. Symptoms started early this morning and was associated with chest discomfort in the midsternal region. There was no diaphoresis, patient was mildly short of breath. She had no fever and no cough. She denied dysuria or hematuria. Her last bowel movement was yesterday and it was normal, there was no black stools no blood in her stools. She also denied abdominal pain. She was recently seen here June 2016 and at that time she underwent a Lexiscan that was suggestive but not diagnostic of cardiac ischemia. At that time there was no documentation of atrial fibrillation, but it seems like she was seen at a different emergency room since then, and diagnosed with atrial fibrillation. She is however on no anticoagulation, she is also not on a beta- errol therapy but she is on a calcium channel errol therapy. Family is not sure if she has had a GI bleed before limiting anticoagulation therapy. ROS ROS: CONSTITUTIONAL: denies fever, chills, weight loss, weight gain HEENT: denies headaches, any vertigo, any sore throat or rhinorrhea. Eyes: No double or blurred vision or eye pain. RESPIRATORY: denies cough or shortness of breath or wheezing. GASTROINTESTINAL: The patient denies any nausea, vomiting, diarrhea or abdominal pain. GENITOURINARY: denies dysuria, frequency, urgency or hematuria. MUSCULOSKELETAL: also denies myalgias, arthralgias or edema. SKIN: denies rash or jaundice NEUROLOGIC: + weakness but no dizziness, focal neurological change or headache. PSYCHIATRIC: denies history of depression in the past, any suicidal ideation. substance abuse. ENDOCRINE: denies polyuria, polydipsia or hot or cold intolerance. HEMATOLOGIC: denies history of easy bruising, anemia or eczema. PMH/Family/Social Past Medical History Medical History: diabetes, hypertension, other (Atrial fibrillation diagnosed last month, but patient states she was not started on any new drugs) Past Surgical History Past Surgical Hx: cholecystectomy Family History Significant Family History: no pertinent family hx Social History Alcohol Use: none Smoking Status: Never smoker Drug Use: none Exam/Review of Systems Vital Signs Vitals VS - Last 72 Hours, by Label Date Time Temp Pulse Resp B/P Pulse Ox O2 Delivery O2 Flow Rate FiO2 10/09/16 13:31 82 18 124/60 98 Room Air 10/09/16 11:47 98.1 129 18 133/69 99 Vital Signs Date Time Temp Pulse Resp B/P Pulse Ox O2 Delivery O2 Flow Rate FiO2 10/09/16 13:31 82 18 124/60 98 Room Air 10/09/16 11:47 98.1 Exam Exam Constitutional: alert, oriented, elderly Head: atraumatic, normocephalic Neck: non-tender, supple, no JVD Respiratory: clear to auscultation, mildly diminished breath Cardiovascular: Irregularly irregular, no murmur Gastrointestinal: non-tender, soft, nondistended with normoactive bowel sounds in 4 quadrants Extremities: normal pulses, no lower extremity edema Neurologic:: No gross focal deficit Labs Result Diagram: 10/09/16 1230 10/09/16 1230 Medications Medications Current Medications Sodium Chloride (NS) 1,000 ml @ 125 mls/hr Q8H IV ; Start 10/09/16 at 16:00; Stop 10/10/16 at 07:59; Status UNV Insulin Glargine (Lantus) 20 unit ONCE ONCE SC ; Start 10/09/16 at 16:00; Stop 10/09/16 at 16:01; Status UNV Procedures Procedures Laboratory Tests Test 10/09/16 12:30 White Blood Count 12.510^3/ul Red Blood Count 4.8710^6/ul Hemoglobin 13.0g/dl Hematocrit 39.3% Mean Corpuscular Volume 80.7fl Mean Corpuscular Hemoglobin 26.7pg Mean Corpuscular Hemoglobin Concent 33.1g/dl Red Cell Distribution Width 12.5% Platelet Count 13105^3/UL Mean Platelet Volume 10.7fl Neutrophils % 81.3% Lymphocytes % 11.3% Monocytes % 5.7% Eosinophils % 0.7% Basophils % 0.6% Nucleated Red Blood Cells % 0.0/100WBC Neutrophils # 10.210^3/ul Lymphocytes # 1.410^3/ul Monocytes # 0.710^3/ul Eosinophils # 0.110^3/ul Basophils # 0.110^3/ul Nucleated Red Blood Cells # 0.010^3/ul Prothrombin Time 13.0Sec Prothrombin Time Ratio 1.0 INR International Normalized Ratio 0.98 Urine Color LT. YELLOW Urine Clarity CLEAR Urine pH 5.0 Urine Specific [place] <=1.005 Urine Ketones NEGATIVE Urine Nitrite NEGATIVE Urine Bilirubin NEGATIVE Urine Urobilinogen 0.2 E.U./dL Urine Leukocyte Esterase NEGATIVE Urine Hemoglobin NEGATIVE Urine Glucose >=1000% Urine Total Protein NEGATIVE Sodium Level 132mmol/L Potassium Level 4.6mmol/L Chloride Level 96mmol/L Carbon Dioxide Level 21mmol/L Anion Gap 20 Blood Urea Nitrogen 26mg/dl Creatinine 0.72mg/dl Glucose Level 373mg/dl Calcium Level 9.5mg/dl Total Bilirubin 0.2mg/dl Direct Bilirubin 0.00mg/dl Indirect Bilirubin 0.2mg/dl Aspartate Amino Transf (AST/SGOT) 20IU/L Alanine Aminotransferase (ALT/SGPT) 28IU/L Alkaline Phosphatase 100IU/L Troponin I < 0.012ng/ml B-Type Natriuretic Peptide 1450PG/ML Total Protein 7.8g/dl Albumin 4.2g/dl Globulin 3.60g/dl Albumin/Globulin Ratio 1.16 Lipase 113U/L Current Medications Medications (Trade) Dose Ordered Sig/Bryan Route PRN Reason Start Time Stop Time Status Last Admin Dose Admin Sodium Chloride (NS) 1,000 ml @ 1,000 mls/hr Q1H STAT IV 10/09/16 12:07 10/09/16 13:06 DC 10/09/16 12:51 1,000 MLS/HR Aspirin (Aspirin) 324 mg ONCE ONCE PO 10/09/16 12:30 10/09/16 12:31 DC 10/09/16 12:28 324 MG Diltiazem HCl 20 mg 20 mg ONCE ONCE IV 10/09/16 12:30 10/09/16 12:31 DC 10/09/16 12:28 20 MG Sodium Chloride 1,000 ml @ 1,000 mls/hr Q1H IV 10/09/16 13:00 10/09/16 13:59 DC Sodium Chloride (NS) 1,000 ml @ 125 mls/hr Q8H IV 10/09/16 16:00 10/10/16 07:59 UNV Insulin Glargine (Lantus) 20 unit ONCE ONCE SC 10/09/16 16:00 10/09/16 16:01 UNV 2D/M Mode Doppler Measurement Value Normal Ranges Measurement Value Normal Ranges LVIDd 2D 4.6 3.5 - 5.6 cm AV Peak Merlin 1.3 m/sec LVIDs 2D 2.4 2.1 - 4.1 cm AV Peak PG 7.0 mmHg FS 2D 47.9 % LVOT Peak Merlin 0.9 m/sec LVPWd 2D 1.0 0.6 - 1.1 cm LVOT Peak PG 3.0 mmHg IVSd 2D 1.0 0.6 - 1.1 cm MV E Peak Merlin 0.8 m/sec IVS/LVPW 2D 1.0 MV A Peak Merlin 1.0 m/sec AoR Diam 2D 2.6 2.0 - 3.7 cm MV E/A 0.8 LA/Ao 2D 1 0 - 1 MV Decel Time 208 msec EDV 2D 98.0 cm3 MV E/A 0.8 ESV 2D 13.8 cm3 TR Peak Merlin 2.5 m/sec LA Dimen 2D 3.5 2.3 - 4.0 cm TR Peak PG 25.0 mmHg RVSP 28.0 mmHg Findings Left Ventricle: Normal left ventricular systolic function. Normal left ventricular cavity size. Mild concentric left ventricular hypertrophy. Ejection fraction is visually estimated at 60 %. Tissue Doppler/Mitral Doppler indices are consistent with impaired relaxation (Stage I diastolic dysfunction). Right Ventricle: Normal right ventricular size. Normal right ventricular systolic function. Left Atrium: The left atrium is normal in size. Right Atrium: The right atrium is normal in size. Mitral Valve: Normal appearance and function of the mitral valve with trace physiologic regurgitation. Aortic Valve: Normal appearance of the aortic valve. No significant aortic stenosis or insufficiency. Tricuspid Valve: Normal appearance of the tricuspid valve. Estimated peak PA systolic pressure 28 mmHg. There is trace tricuspid regurgitation. Pericardium: Normal pericardium with no significant pericardial effusion. Aorta: Normal aortic root. IVC: Normal size and normal respiratory collapse consistent with normal right atrial pressure. Conclusions 1. Normal left ventricular systolic function. Normal left ventricular cavity size. Mild concentric left ventricular hypertrophy. Ejection fraction is visually estimated at 60 %. Tissue Doppler/Mitral Doppler indices are consistent with impaired relaxation (Stage I diastolic dysfunction). 2. Normal appearance and function of the mitral valve with trace physiologic regurgitation. 3. Normal appearance of the tricuspid valve. Estimated peak PA systolic pressure 28 mmHg. There is trace tricuspid regurgitation. Electronically Signed By: Valentin Cintron 22-Jun-2016 13:03:27 -0800 Patient Name: HAIDER ARMENDARIZ Study Date: 22-Jun-2016 AMALIA RODRIGUEZ October 09, 2016 15:59
[2016-10-09] MEDS: SOD CHLORIDE 0.9% 1,000 ML IV SCH ×2 (16:12→23:07)
[2016-10-09] MEDS: INSULIN ASPART [NOVOLOG] 3 ML PEN SC SCH ×2 (18:00→23:15)
[2016-10-09 18:11] LABS: CREATINE KINASE 30 IU/L (23-200)
[2016-10-09 18:20] LABS: CK-MB 0.65 ng/ml (0.0-2.4)
[2016-10-09 18:33] VITALS: TEMP 98
[2016-10-09 18:40] LABS: TROPONIN-I < 0.012 ng/ml (0.00-0.12)
[2016-10-09 19:00] VITALS: PULSE 126
[2016-10-09] MEDS: METOPROLOL 25 MG TAB PO SCH ×2 (19:55→21:47)
[2016-10-09 19:58] VITALS: BP 155/80; RESP 18
[2016-10-09 20:09] VITALS: PULSE 130
[2016-10-09 21:00] VITALS: Ht 157.5 cm; Wt 76.8 kg
[2016-10-09] MEDS: FAMOTIDINE 20 MG TAB PO SCH (21:46)
[2016-10-09] MEDS: INSULIN GLARGINE [LANtus] 3 ML PEN SC SCH (23:18)
[2016-10-09 23:42] VITALS: BP 124/67; RESP 19
[2016-10-10] VITALS (12 sets, daily range): BP systolic 110–142; BP diastolic 65–90; PULSE 102–159; RESP 16–20
[2016-10-10 01:54] LABS: CREATINE KINASE 27 IU/L (23-200)
[2016-10-10 02:04] LABS: CK-MB 0.55 ng/ml (0.0-2.4)
[2016-10-10 02:22] LABS: TROPONIN-I < 0.012 ng/ml (0.00-0.12)
[2016-10-10] MEDS: SOD CHLORIDE 0.9% 1,000 ML IV SCH (06:40)
[2016-10-10] MEDS: INSULIN ASPART [NOVOLOG] 3 ML PEN SC SCH ×4 (07:44→20:51)
[2016-10-10] MEDS: METOPROLOL 25 MG TAB PO SCH (07:54)
[2016-10-10] MEDS: FAMOTIDINE 20 MG TAB PO SCH ×2 (08:08→20:52)
[2016-10-10] MEDS ORDERED: ENOXAPARIN 40 MG/0.4 ML SYG SC SCH ×2 (09:00→21:00)
[2016-10-10] MEDS ORDERED: LISINOPRIL 20 MG TAB PO SCH (09:00)
[2016-10-10] MEDS ORDERED: NIFEdipine (XL) 60 MG TAB PO SCH ×3 (09:00)
[2016-10-10] MEDS ORDERED: DILTIAZEM-D5W 125MG/125ML DRIP 125 ML IV SCH (09:30)
[2016-10-10] MEDS ORDERED: DILTIAZEM 25 MG INJ IV ONE (10:00)
[2016-10-10] MEDS ORDERED: METOPROLOL 25 MG TAB PO ONE (10:00)
[2016-10-10 10:01] LABS: INR 1.15; PROTIME 14.7 Sec (12.2-14.2); PT RATIO 1.1
[2016-10-10 10:02] LABS: PARTIAL THROMBOPLASTIN TIME 30.5 Sec (25.0-35.0)
[2016-10-10 10:15] LABS: IRON 215 ug/dl (35-150)
[2016-10-10 10:18] LABS: CALCIUM 9.2 mg/dl (8.4-10.2); CREATININE 0.71 mg/dl (0.44-1.00); POTASSIUM 4.6 mmol/L (3.5-5.1)
[2016-10-10 10:25] LABS: TOTAL IRON BINDING CAPACITY 373 ug/dl (241-421)
[2016-10-10 10:44] LABS: THYROID STIMULATING HORMONE 1.4 MIU/L (0.465-4.680)
[2016-10-10 10:56] LABS: ADD SCAN DIFF NO
[2016-10-10 11:31] LABS: BASOPHIL # 0.1 10^3/ul (0.0-0.1); BASOPHILS % 0.6 % (0.0-2.0); EOSINOPHILS # 0.2 10^3/ul (0.0-0.5); EOSINOPHILS % 2.4 % (0.0-7.0); HEMATOCRIT 40.3 % (37.0-47.0); HEMOGLOBIN 13.1 g/dl (12.0-16.0); LYMPHOCYTES # 1.9 10^3/ul (0.8-2.9); LYMPHOCYTES % 20.3 % (15.0-51.0); MEAN CORPUSCULAR HEMOGLOBIN 26.8 pg (29.0-33.0); MEAN CORPUSCULAR HGB CONC 32.5 g/dl (32.0-37.0); MEAN CORPUSCULAR VOLUME 82.4 fl (82.0-101.0); MONOCYTE # 0.8 10^3/ul (0.3-0.9); MONOCYTES % 8.7 % (0.0-11.0); NEUTROPHIL # 6.2 10^3/ul (1.6-7.5); NEUTROPHILS % 67.6 % (39.0-77.0); PLATELET COUNT 390 10^3/UL (140-415); RED BLOOD COUNT 4.89 10^6/ul (4.20-5.40); RED CELL DISTRIBUTION WIDTH 12.6 % (11.5-14.5); WHITE BLOOD COUNT 9.2 10^3/ul (4.8-10.8)
[2016-10-10] MEDS: DILTIAZEM 25 MG INJ IV PRN ×2 (14:18→18:14)
[2016-10-10] MEDS ORDERED: DIGOXIN 500 MCG INJ IV ONE (20:30)
[2016-10-10] MEDS: INSULIN GLARGINE [LANtus] 3 ML PEN SC SCH (20:30)
[2016-10-10] MEDS: METOPROLOL 50 MG TAB PO SCH (20:51)
[2016-10-10] MEDS: ENOXAPARIN 80 MG/0.8 ML SYG SC SCH (20:56)
--- NOTE | 2016-10-10 23:30 | CONS ---
DATE OF ADMISSION: 10/09/2016 DATE OF CONSULTATION: 10/10/2016 TYPE OF CONSULTATION: Cardiology. REASON FOR CONSULTATION: Atrial fibrillation, rapid ventricular response, chest pain. REQUESTING PHYSICIAN: Dr. Rodriguez from the hospitalist service. HISTORY OF PRESENT ILLNESS: Ms. Les Booker is a 71-year-old female with a history of hypertensi on, dyslipidemia, diabetes mellitus who initially presented with complaints of generalized weakness, chest pain. Initially upon arrival, temperature 98.1, blood pressure 132/69, pulse 129, respirator y rate 18, saturating 99%. The patient's labs: White cell count 12.5, hemoglobin 13, platelet coun t of 353. Sodium 132, potassium 4.6, creatinine 0.7, BUN 26, AST 20, ALT 28. Troponin negative. 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 INR 0.98. UA negative. The patient underwent a chest x-ray revealing no acute cardiopulm onary abnormalities. The patient's electrocardiogram revealed atrial fibrillation with rapid ventri cular response, rate of 126 with normal axis and nonspecific ST and T abnormalities diffusely. The patient subsequently admitted to the floor and since admit to floor continues to have atrial fibrill ation with some rapid ventricular response to mid 100s. The patient has been placed on metoprolol b y myself today. No other rate control agent has been given. PAST MEDICAL HISTORY: As above in HPI. MEDICATIONS CURRENTLY IN HOSPITAL: 1. Diltiazem IV push p.r.n. 2. Zestril 40 mg daily. 3. Lovenox ____ mg subcutaneous daily. 4. Procardia 60 mg daily. 5. Pepcid 20 mg b.i.d. 6. Lantus 20 units subcutaneous at bedtime. 7. Metoprolol 25 mg p.o. b.i.d. ALLERGIES: NO KNOWN DRUG ALLERGIES. SOCIAL HISTORY: No tobacco, ETOH, illicit drug use. FAMILY HISTORY: No history of sudden cardiac or early CAD. REVIEW OF SYSTEMS: As above in HPI. CONSTITUTIONAL: No fevers, chills. PULMONARY: No current shortness of breath. CARDIOVASCULAR: Intermittent chest pain, palpitations. GASTROINTESTINAL: No vomiting. GENITOURINARY: No hematuria. MUSCULOSKELETAL: No significant myalgia or arthralgia. ENDOCRINE: Positive history of diabetes mellitus. No history of thyroid disease. PHYSICAL EXAMINATION: VITAL SIGNS: Temperature 97.7; blood pressure 110/86; pulse between 130 to 150, atrial fibrillation ; saturating 100%. GENERAL: The patient is alert, awake, in no acute distress. NECK: JVP approximately 9 cm water. CHEST: Fair air movement throughout. HEART: Tachycardic, irregularly irregular. I/ systolic murmur. ABDOMEN: Positive bowel sounds. Soft. EXTREMITIES: No pitting edema. Pulses 1+ bilaterally at posterior tibial. LABORATORIES: As above in HPI with most recently from today: Sodium 131, potassium 4.6, creatinine 0.7, BUN of 20. White cell count 9.2, hemoglobin 13.1, platelet count of 390. INR 1.1. UA negati ve. IMAGING STUDIES: Chest x-ray from the revealing no acute cardiopulmonary abnormalities. ELECTROCARDIOGRAM: No further electrocardiograms for my review at this time. IMPRESSION: 1. Atrial fibrillation with rapid ventricular response. 2. Chest pain with negative troponins x3 and no ischemia and normal ejection fraction by Lexiscan 0 06/2016. 3. Hypertension, under reasonable control. 4. Generalized weakness. 5. Diabetes mellitus. 6. Hyponatremia. RECOMMENDATIONS: 1. At this time would maintain the patient on telemetry monitoring to follow rhythm and rate contro l closely. 2. Would decrease the patient's baseline Procardia to allow more room for the patient to receive in creased beta blockade and will additionally give patient digoxin load to improve overall heart rate acutely. 3. Will start patient on Lovenox systemic anticoagulation with plans to be transitioned to probable Eliquis at time of discharge. 4. Check a TSH to be sure subclinical hyperthyroidism is not contributing to any bouts of atrial fi brillation at this time and complete the patient's rule-out for myocardial infarction, ensure that t he patient has not provoked any acute coronary syndrome such as acute myocardial infarction in the s etting of rapid atrial fibrillation. Thank you for allowing me to take part in the care of this patient. I will continue to follow along very closely with you with further recommendations to be made as the patient progresses through her inpatient hospital clinical course. Dictated By: KIMBERLEY ALBA/MOHIT Conf#: [id number] DID#: [id number] CC: AMALIA RODRIGUEZ MD;*EndCC*
[2016-10-11] VITALS (12 sets, daily range): BP systolic 110–152; BP diastolic 63–82; PULSE 94–161; RESP 20
[2016-10-11] MEDS: DILTIAZEM 25 MG INJ IV PRN ×3 (00:07→16:24)
[2016-10-11] MEDS: DIGOXIN 500 MCG INJ IV SCH ×2 (02:49→08:31)
[2016-10-11 06:54] LABS: ADD SCAN DIFF NO
[2016-10-11 06:58] LABS: BASOPHIL # 0.1 10^3/ul (0.0-0.1); BASOPHILS % 0.6 % (0.0-2.0); EOSINOPHILS # 0.2 10^3/ul (0.0-0.5); EOSINOPHILS % 2.5 % (0.0-7.0); HEMATOCRIT 44.1 % (37.0-47.0); HEMOGLOBIN 14.7 g/dl (12.0-16.0); LYMPHOCYTES # 2.3 10^3/ul (0.8-2.9); LYMPHOCYTES % 24.7 % (15.0-51.0); MEAN CORPUSCULAR HEMOGLOBIN 27.3 pg (29.0-33.0); MEAN CORPUSCULAR HGB CONC 33.3 g/dl (32.0-37.0); MEAN CORPUSCULAR VOLUME 81.8 fl (82.0-101.0); MEAN PLATELET VOLUME 10.3 fl (7.4-10.4); MONOCYTE # 0.7 10^3/ul (0.3-0.9); MONOCYTES % 7.9 % (0.0-11.0); NEUTROPHILS % 64.1 % (39.0-77.0); PLATELET COUNT 386 10^3/UL (140-415); RED BLOOD COUNT 5.39 10^6/ul (4.20-5.40); RED CELL DISTRIBUTION WIDTH 12.4 % (11.5-14.5); WHITE BLOOD COUNT 9.3 10^3/ul (4.8-10.8)
[2016-10-11] MEDS: INSULIN ASPART [NOVOLOG] 3 ML PEN SC SCH ×4 (07:54→21:00)
--- NOTE | 2016-10-11 07:57 | PN ---
DATE: 10/10/2016 SUBJECTIVE: The patient had some elevated heart rate this morning, atrial fibrillation with RVR, re ceived Cardizem as well. Heart rate is slightly improved. Denies any present chest pain. OBJECTIVE: VITAL SIGNS: Stable except again the heart rate is presently 110-159. The rest of the vitals are s table. GENERAL: The patient is lying in bed, answering questions appropriately. No acute distress. HEENT: Pupils equal, round, reactive to light. Extraocular muscles intact. NECK: Supple, no thyromegaly. LUNGS: Clear to auscultation bilaterally. CARDIOVASCULAR: S1, S2 heard, irregular heart rate, tachycardic. No rubs or gallops. ABDOMEN: Soft, nontender, nondistended. Normal bowel sounds. No rebound or guarding. MUSCULOSKELETAL: No lower extremity edema bilaterally. NEUROLOGIC: No focal deficits. LABORATORY DATA: Basic metabolic panel was normal except the sodium is a little low at 131. A1c is 7.9. CBC is normal. ASSESSMENT AND PLAN: This is a 71-year-old female coming in with atrial fibrillation with rapid melanie tricular response. 1. Atrial fibrillation with rapid ventricular response, again continue current p.o. blood pressure medicines and IV Cardizem as ordered by cardiology team. Monitor heart rate very carefully. No pre sent chest pain issues. 2. Type 2 diabetes, again continue sliding scale insulin with Lantus, again A1c is 7.9. Apparently back in May 2016 the A1c was 8.5, so it is slightly improved. 3. Hyponatremia, possible pseudohyponatremia. No present issues. Continue to monitor for now, hol ding IV fluids for now. 4. History of high blood pressure. Again, see #1. Continue current blood pressure medicines. Blo od pressure is stable. 5. Gastrointestinal prophylaxis, H2 errol. 6. Deep venous thrombosis prophylaxis, Lovenox. Dictated By: MEGAN RODRIGUEZ Conf#: [id number] DID#: [id number]
[2016-10-11 07:59] LABS: POTASSIUM 4.5 mmol/L (3.5-5.1)
[2016-10-11 08:02] LABS: CREATININE 0.78 mg/dl (0.44-1.00)
[2016-10-11 08:03] LABS: CALCIUM 9.6 mg/dl (8.4-10.2)
[2016-10-11] MEDS: METOPROLOL 50 MG TAB PO SCH ×2 (08:32→21:14)
[2016-10-11] MEDS: NIFEdipine (XL) 30 MG TAB PO SCH (08:32)
[2016-10-11] MEDS: FAMOTIDINE 20 MG TAB PO SCH ×2 (08:32→21:14)
[2016-10-11] MEDS: LISINOPRIL 20 MG TAB PO SCH (08:32)
[2016-10-11] MEDS: ENOXAPARIN 80 MG/0.8 ML SYG SC SCH ×2 (08:35→21:19)
--- NOTE | 2016-10-11 12:00 | PN ---
Date/Time of Note Date/Time of Note DATE: 10/11/16 TIME: 11:57 Assessment/Plan VTE Prophylaxis VTE Prophylaxis Intervention: LMWH Lines/Catheters IV [facility] Urinary Cath still in place: No Assessment/Plan Chief Complaint/Hosp Course ASSESSMENT AND PLAN: 71-year-old female coming in with atrial fibrillation with rapid ventricular response. 1. Atrial fibrillation with rapid ventricular response - HR improved with new bp meds. Also started on anticoagulation yesterday. - continue current p.o. blood pressure medicines as ordered by cardiology team. - Monitor heart rate very carefully. No present chest pain issues. 2. Type 2 diabetes - again A1c is 7.9. Apparently back in May 2016 the A1c was 8.5, so it is slightly improved. - continue sliding scale insulin with Lantus 3. Hyponatremia, possible pseudohyponatremia. No present issues. Continue to monitor for now, holding IV fluids for now. 4. History of high blood pressure. Again, see #1. Continue current blood pressure medicines. Blood pressure is stable. 5. Gastrointestinal prophylaxis, H2 errol. 6. Deep venous thrombosis prophylaxis, Lovenox. Problems: Subjective 24 Hr Interval Summary Free Text/Dictation HR improved, pt denies cp or palpitations. Exam/Review of Systems Vital Signs Vitals Vital Signs Date Time Temp Pulse Resp B/P Pulse Ox O2 Delivery O2 Flow Rate FiO2 10/11/16 11:43 97.5 62 20 152/81 99 10/09/16 18:33 Room Air Intake and Output 10/10/16 10/10/16 10/11/16 15:00 23:00 07:00 Intake Total 1300 ml Balance 1300 ml Exam GENERAL: The patient is lying in bed, answering questions appropriately. No acute distress. HEENT: Pupils equal, round, reactive to light. Extraocular muscles intact. NECK: Supple, no thyromegaly. LUNGS: Clear to auscultation bilaterally. CARDIOVASCULAR: S1, S2 heard, irregular heart rate, tachycardic. No rubs or gallops. ABDOMEN: Soft, nontender, nondistended. Normal bowel sounds. No rebound or guarding. MUSCULOSKELETAL: No lower extremity edema bilaterally. NEUROLOGIC: No focal deficits. Results Result Diagram: 10/11/16 0628 10/11/16 0628 Results 24 hrs Laboratory Tests Test 10/10/16 17:14 10/10/16 20:11 10/11/16 02:45 10/11/16 06:28 Bedside Glucose 134 254 H 142 White Blood Count 9.3 Red Blood Count 5.39 Hemoglobin 14.7 Hematocrit 44.1 Mean Corpuscular Volume 81.8 L Mean Corpuscular Hemoglobin 27.3 L Mean Corpuscular Hemoglobin Concent 33.3 Red Cell Distribution Width 12.4 Platelet Count 386 Mean Platelet Volume 10.3 Neutrophils % 64.1 Lymphocytes % 24.7 Monocytes % 7.9 Eosinophils % 2.5 Basophils % 0.6 Nucleated Red Blood Cells % 0.0 Neutrophils # 6.0 Lymphocytes # 2.3 Monocytes # 0.7 Eosinophils # 0.2 Basophils # 0.1 Nucleated Red Blood Cells # 0.0 Sodium Level 133 L Potassium Level 4.5 Chloride Level 96 L Carbon Dioxide Level 24 Anion Gap 18 H Blood Urea Nitrogen 21 H Creatinine 0.78 Glucose Level 185 Calcium Level 9.6 Troponin I < 0.012 Test 10/11/16 07:51 10/11/16 11:40 Bedside Glucose 171 227 H Medications Medications Current Medications Miscellaneous Information 1 ea NOTE XX ; Start 10/09/16 at 16:00 Glucose (Glutose) 15 gm Q15M PRN PO DECREASED GLUCOSE; Start 10/09/16 at 16:00 Glucose (Glutose) 22.5 gm Q15M PRN PO DECREASED GLUCOSE; Start 10/09/16 at 16: 00 Dextrose (D50w Syringe) 25 ml Q15M PRN IV DECREASED GLUCOSE; Start 10/09/16 at 16:00 Dextrose (D50w Syringe) 50 ml Q15M PRN IV DECREASED GLUCOSE; Start 10/09/16 at 16:00 Glucagon (Glucagen) 1 mg Q15M PRN IM DECREASED GLUCOSE; Start 10/09/16 at 16:00 Glucose (Glutose) 15 gm Q15M PRN BUCCAL DECREASED GLUCOSE; Start 10/09/16 at 16 :00 Insulin Glargine (Lantus) 20 unit DAILY@20 SC Last administered on 10/10/16 20 :30; Admin Dose 20 UNIT; Start 10/09/16 at 20:00 Famotidine (Pepcid) 20 mg BID PO Last administered on 10/11/16 08:32; Admin Dose 20 MG; Start 10/09/16 at 21:00 Diltiazem HCl (Cardizem Iv) 5 mg Q4H PRN IV HR>120 Last administered on 06:44; Admin Dose 5 MG; Start 10/10/16 at 10:00 Lisinopril (Zestril) 20 mg DAILY PO Last administered on 10/11/16 08:32; Admin Dose 20 MG; Start 10/11/16 at 09:00 Metoprolol Tartrate (Lopressor) 50 mg BID PO Last administered on 10/11/16 08: 32; Admin Dose 50 MG; Start 10/10/16 at 21:00 Nifedipine (Procardia Xl) 30 mg DAILY PO Last administered on 10/11/16 08:32; Admin Dose 30 MG; Start 10/11/16 at 09:00 Enoxaparin Sodium (Lovenox) 70 mg Q12 SC Last administered on 10/11/16 08:35; Admin Dose 70 MG; Start 10/10/16 at 21:00 MEGAN WOODARD October 11, 2016 12:00
--- NOTE | 2016-10-11 12:12 | CONS ---
Date/Time of Note Date/Time of Note DATE: 10/11/16 TIME: 12:08 Assessment/Plan Assessment/Plan Additional Assessment/Plan 1. Atrial fibrillation with rapid ventricular response - now better rate control, Eliquis for d/c as needed 2. Chest pain with negative troponin x3 and no ischemia and normal ejection fraction by Janetan 06/2016- R/O IN, doubt ischemia. 3. Hypertension, better controlled - will monition. . 4. Generalized weakness- feels better now. 5. Diabetes mellitus- on meds, will follow 6. Hyponatremia. Consultation Date/Type/Reason Admit Date/Time October 09, 2016 at 13:51 Initial Consult Date 24 HR Interval Summary Free Text/Dictation No acute change - BP stable - doubt ischemia. Rate better controlled. ROS: No fever, no chills, no nausea, no vomiting, no diarrhea/constipation No recent weight changes No chest pain, no PND, no orthopnea No dizziness, blurred vision No thirst, no heat or cold intolerance Exam/Review of Systems Vital Signs Vitals Vital Signs Date Time Temp Pulse Resp B/P Pulse Ox O2 Delivery O2 Flow Rate FiO2 10/11/16 11:43 97.5 62 20 152/81 99 10/09/16 18:33 Room Air Intake and Output 10/10/16 10/10/16 10/11/16 15:00 23:00 07:00 Intake Total 1300 ml Balance 1300 ml Exam General: WN/WD/NAD, AOx 3 HEENT: Unicetric/atraumatic/EOMI (does not follow commands) NECK: JVD elevated, no thyromegaly Lymph: no lymphadenopathy HEART: IRregular with no S3, II/ systolic murmur at apex LUNGS: Coarse sounds ABD: soft, NT, ND, +BS : Intact Neuro: non focal SKIN: chronic changes EXT: trace edema Results Result Diagram: 10/11/1662710/11/16627 Results 24 hrs Laboratory Tests Test 10/10/16 17:14 10/10/16 20:11 10/11/16 02:45 10/11/16 06:28 Bedside Glucose 134 254 H 142 White Blood Count 9.3 Red Blood Count 5.39 Hemoglobin 14.7 Hematocrit 44.1 Mean Corpuscular Volume 81.8 L Mean Corpuscular Hemoglobin 27.3 L Mean Corpuscular Hemoglobin Concent 33.3 Red Cell Distribution Width 12.4 Platelet Count 386 Mean Platelet Volume 10.3 Neutrophils % 64.1 Lymphocytes % 24.7 Monocytes % 7.9 Eosinophils % 2.5 Basophils % 0.6 Nucleated Red Blood Cells % 0.0 Neutrophils # 6.0 Lymphocytes # 2.3 Monocytes # 0.7 Eosinophils # 0.2 Basophils # 0.1 Nucleated Red Blood Cells # 0.0 Sodium Level 133 L Potassium Level 4.5 Chloride Level 96 L Carbon Dioxide Level 24 Anion Gap 18 H Blood Urea Nitrogen 21 H Creatinine 0.78 Glucose Level 185 Calcium Level 9.6 Troponin I < 0.012 Test 10/11/16 07:51 10/11/16 11:40 Bedside Glucose 171 227 H Medications Medications Current Medications Miscellaneous Information 1 ea NOTE XX ; Start 10/09/16 at 16:00 Glucose (Glutose) 15 gm Q15M PRN PO DECREASED GLUCOSE; Start 10/09/16 at 16:00 Glucose (Glutose) 22.5 gm Q15M PRN PO DECREASED GLUCOSE; Start 10/09/16 at 16: 00 Dextrose (D50w Syringe) 25 ml Q15M PRN IV DECREASED GLUCOSE; Start 10/09/16 at 16:00 Dextrose (D50w Syringe) 50 ml Q15M PRN IV DECREASED GLUCOSE; Start 10/09/16 at 16:00 Glucagon (Glucagen) 1 mg Q15M PRN IM DECREASED GLUCOSE; Start 10/09/16 at 16:00 Glucose (Glutose) 15 gm Q15M PRN BUCCAL DECREASED GLUCOSE; Start 10/09/16 at 16 :00 Insulin Glargine (Lantus) 20 unit DAILY@20 SC Last administered on 10/10/16 20 :30; Admin Dose 20 UNIT; Start 10/09/16 at 20:00 Famotidine (Pepcid) 20 mg BID PO Last administered on 10/11/16 08:32; Admin Dose 20 MG; Start 10/09/16 at 21:00 Diltiazem HCl (Cardizem Iv) 5 mg Q4H PRN IV HR>120 Last administered on 06:44; Admin Dose 5 MG; Start 10/10/16 at 10:00 Lisinopril (Zestril) 20 mg DAILY PO Last administered on 5/23/17at 08:32; Admin Dose 20 MG; Start 10/11/16 at 09:00 Metoprolol Tartrate (Lopressor) 50 mg BID PO Last administered on 10/11/16 08: 32; Admin Dose 50 MG; Start 10/10/16 at 21:00 Nifedipine (Procardia Xl) 30 mg DAILY PO Last administered on 10/11/16 08:32; Admin Dose 30 MG; Start 10/11/16 at 09:00 Enoxaparin Sodium (Lovenox) 70 mg Q12 SC Last administered on 10/11/16 08:35; Admin Dose 70 MG; Start 10/10/16 at 21:00 JEFFY MARTINES MD October 11, 2016 12:12
--- NOTE | 2016-10-11 12:17 | PDOCDIS ---
Discharge Instructions CONDITION Patient Condition: Stable HOME CARE INSTRUCTIONS: Special Diet: Carb controlled ACTIVITY: Activity Restrictions: Slowly Increase Activity FOLLOW UP/APPOINTMENTS Appointments Please take your medications as prescribed, see your doctor in the clinic in 1 week. MEGAN WOODARD October 11, 2016 12:17
[2016-10-11] MEDS ORDERED: APIX2.5T PO (12:19)
[2016-10-11] MEDS ORDERED: NIFE30TA2 PO (12:19)
[2016-10-11] MEDS ORDERED: METO-429 PO (12:19)
[2016-10-11] MEDS ORDERED: LISI20TA11 PO (12:19)
--- NOTE | 2016-10-11 18:59 | DS ---
DATE OF ADMISSION: 10/09/2016 DATE OF DISCHARGE: 10/11/2016 HOSPITAL COURSE: This is a 71-year-old female originally admitted on 10/09/2016, being discharged o n 10/11/2016. The patient came in with palpitations and dizziness and had a recent diagnosis of Andrew b with RVR. She came in with atrial fibrillation with RVR. She was admitted to telemetry floor, [facility] [place] by cardiology team. She was given antiarrhythmic medications as well. She was also ruled out fo r acute coronary syndrome. She was seen by cardiology team who made some adjustments to her cardiac medications. Her heart rate was stabilized and became rate controlled after changes were made to h er blood pressure medications as mentioned above. She was also started on anticoagulation as well g iven her atrial fibrillation. Over the course of hospital stay, her chest pain symptoms improved. Her dizziness and palpitation symptoms improved. She was able to ambulate and tolerate a p.o. diet. She will be discharged home today in improved condition. MEDICATIONS: She will go home with the following medications: 1. Eliquis 5 mg p.o. b.i.d. 2. Lisinopril 20 mg daily. 3. Metoprolol 50 mg b.i.d. 4. Nifedipine 30 mg daily. 5. Aspart subcutaneously with meals. 6. Lantus 20 units subcutaneously daily. FOLLOWUP: She will need to follow up with primary care doctor in the next few days in the clinic. FINAL DIAGNOSES: 1. Palpitations secondary to atrial fibrillation with rapid ventricular response, now rate controll ed. 2. Chest pain, ruled out for acute coronary syndrome. 3. Type 2 diabetes with A1c found of 7.9. 4. Hyponatremia, resolved. 5. Essential hypertension. Time spent discharging patient 45 minutes. Dictated By: MEGAN RODRIGUEZ Conf#: [id number] DID#: [id number]
[2016-10-11] MEDS: INSULIN GLARGINE [LANtus] 3 ML PEN SC SCH (21:28)
[2016-10-12] VITALS (13 sets, daily range): BP systolic 124–149; BP diastolic 70–85; PULSE 81–126; RESP 18–20
[2016-10-12] MEDS: INSULIN ASPART [NOVOLOG] 3 ML PEN SC SCH ×4 (08:31→20:27)
[2016-10-12] MEDS: ENOXAPARIN 80 MG/0.8 ML SYG SC SCH (08:32)
[2016-10-12] MEDS: LISINOPRIL 20 MG TAB PO SCH (08:33)
[2016-10-12] MEDS: METOPROLOL 50 MG TAB PO SCH ×2 (08:33→20:23)
[2016-10-12] MEDS: FAMOTIDINE 20 MG TAB PO SCH ×2 (08:33→20:22)
[2016-10-12] MEDS: NIFEdipine (XL) 30 MG TAB PO SCH (08:34)
--- NOTE | 2016-10-12 11:53 | DS ---
Date/Time of Note Date/Time of Note DATE: 10/12/16 TIME: 11:51 Discharge Summary Admission/Discharge Info Admit Date/Time October 09, 2016 at 13:51 Discharge Date/Time Final Diagnosis 1. Palpitations secondary to atrial fibrillation with rapid ventricular response, now rate controlled. 2. Chest pain, ruled out for acute coronary syndrome. 3. Type 2 diabetes with A1c found of 7.9. 4. Hyponatremia, resolved. 5. Essential hypertension. Time spent discharging patient 45 minutes. Hx of Present Illness PRESENTING COMPLAINT: Palpitation HISTORY OF PRESENTING COMPLAINT: This is a 71-year-old with a past medical history of high blood pressure and diabetes who presents to the ER brought in by her family because of palpitations. She also has lethargy as well as some dizziness. Symptoms started early this morning and was associated with chest discomfort in the midsternal region. There was no diaphoresis, patient was mildly short of breath. She had no fever and no cough. She denied dysuria or hematuria. Her last bowel movement was yesterday and it was normal, there was no black stools no blood in her stools. She also denied abdominal pain. She was recently seen here June 2016 and at that time she underwent a Lexiscan that was suggestive but not diagnostic of cardiac ischemia. At that time there was no documentation of atrial fibrillation, but it seems like she was seen at a different emergency room since then, and diagnosed with atrial fibrillation. She is however on no anticoagulation, she is also not on a beta- errol therapy but she is on a calcium channel errol therapy. Family is not sure if she has had a GI bleed before limiting anticoagulation therapy. Hospital Course DATE OF ADMISSION: 10/09/2016 DATE OF DISCHARGE: 10/12/2016 HOSPITAL COURSE: This is a 71-year-old female originally admitted on 10/09/2016 , being discharged on 10/12/2016. The patient came in with palpitations and dizziness and had a recent diagnosis of AFib with RVR. She came in with atrial fibrillation with RVR. She was admitted to telemetry floor, seen by cardiology team. She was given antiarrhythmic medications as well. She was also ruled out for acute coronary syndrome. She was seen by cardiology team who made some adjustments to her cardiac medications. Her heart rate was stabilized and became rate controlled after changes were made to her blood pressure medications as mentioned above. She was also started on anticoagulation as well given her atrial fibrillation. Over the course of hospital stay, her chest pain symptoms improved. Her dizziness and palpitation symptoms improved. She was able to ambulate and tolerate a p.o. diet. we had to make some adjustments to her bp meds on 10/12/2016, and if HR stays less than 100, she will be d/c home in an improved condition. MEDICATIONS: She will go home with the following medications: 1. Eliquis 5 mg p.o. b.i.d. 2. Lisinopril 30 mg daily. 3. Metoprolol 75 mg b.i.d. 4. Nifedipine 30 mg daily. 5. Aspart subcutaneously with meals. 6. Lantus 20 units subcutaneously daily. Home Meds Active Scripts Apixaban* (Eliquis*) 2.5 Mg Tablet, 5 MG PO BID, #60 TAB 2 Refills Prov:MEGAN WOODARD S. 10/11/16 Nifedipine (Procardia Xl) 30 Mg Tab.er.24, 30 MG PO DAILY, #30 TAB 2 Refills Prov:MEGAN WOODARD S. 10/11/16 Metoprolol Tartrate* (Lopressor*) 50 Mg Tab, 50 MG PO BID, #60 TAB 2 Refills Prov:MEGAN WOODARD S. 10/11/16 Lisinopril* (Lisinopril*) 20 Mg Tablet, 20 MG PO DAILY, #30 TAB 2 Refills Prov:MEGAN WOODARD S. 10/11/16 Insulin Glargine* (Lantus*) 100 Unit/Ml Soln, 20 UNIT SC DAILY@20 for 30 Days Prov:SHARON SALMON MD 06/24/16 Insulin Aspart* (Novolog Insulin Pen*) 100 Unit/Ml Soln, 0 UNIT SC WITH MEALS BEDTIME for 30 Days Prov:SHARON SALMON MD 06/24/16 Discontinued Reported Medications Nifedipine* (Nifedipine ER*) 90 Mg Tablet.er, 90 MG PO DAILY, TAB 10/09/16 Lisinopril* (Lisinopril*) 40 Mg Tablet, 40 MG PO DAILY, #30 TAB 10/09/16 Metformin Hcl (Glucophage) 500 Mg Tablet, 850 MG PO WITH MEALS, #90 TAB 1/31/17 Discontinued Scripts Nifedipine (Nifedical Xl) 60 Mg Tab.er.24, 60 MG PO DAILY for 30 Days, TAB Prov:SHARON SALMON MD 06/24/16 Lisinopril* (Lisinopril*) 20 Mg Tablet, 20 MG PO BID for 30 Days, TAB Prov:SHARON SALMON MD 06/24/16 Primary Care Provider [facility] Pending Labs Laboratory Tests Test 10/11/16 16:50 10/11/16 21:13 10/12/16 08:23 Bedside Glucose 157mg/dL (70-220) 184mg/dL (70-220) 153mg/dL (70-220) MEGAN WOODARD October 12, 2016 11:53
[2016-10-12] MEDS ORDERED: METO-429 PO (11:54)
[2016-10-12] MEDS ORDERED: LISI20TA11 PO (11:54)
[2016-10-12 11:55] LABS: ADD SCAN DIFF NO
[2016-10-12] MEDS ORDERED: METOPROLOL 25 MG TAB PO ONE (12:00)
[2016-10-12 12:04] LABS: BASOPHIL # 0.1 10^3/ul (0.0-0.1); BASOPHILS % 0.7 % (0.0-2.0); EOSINOPHILS # 0.1 10^3/ul (0.0-0.5); HEMATOCRIT 40.8 % (37.0-47.0); HEMOGLOBIN 13.3 g/dl (12.0-16.0); LYMPHOCYTES % 20.8 % (15.0-51.0); MEAN CORPUSCULAR HEMOGLOBIN 26.2 pg (29.0-33.0); MEAN CORPUSCULAR HGB CONC 32.6 g/dl (32.0-37.0); MEAN CORPUSCULAR VOLUME 80.5 fl (82.0-101.0); MEAN PLATELET VOLUME 10.5 fl (7.4-10.4); MONOCYTE # 0.7 10^3/ul (0.3-0.9); MONOCYTES % 7.3 % (0.0-11.0); NEUTROPHIL # 6.7 10^3/ul (1.6-7.5); NEUTROPHILS % 69.6 % (39.0-77.0); PLATELET COUNT 350 10^3/UL (140-415); RED BLOOD COUNT 5.07 10^6/ul (4.20-5.40); RED CELL DISTRIBUTION WIDTH 12.6 % (11.5-14.5); WHITE BLOOD COUNT 9.6 10^3/ul (4.8-10.8)
[2016-10-12] MEDS: LISINOPRIL 10 MG TAB PO SCH (12:14)
[2016-10-12 12:21] LABS: CALCIUM 9.2 mg/dl (8.4-10.2); CREATININE 0.74 mg/dl (0.44-1.00); POTASSIUM 4.5 mmol/L (3.5-5.1)
[2016-10-12 14:47] LABS: POTASSIUM 4.6 mmol/L (3.5-5.1)
[2016-10-12 14:50] LABS: CALCIUM 9.4 mg/dl (8.4-10.2); CREATININE 0.88 mg/dl (0.44-1.00)
--- NOTE | 2016-10-12 14:50 | CONS ---
Date/Time of Note Date/Time of Note DATE: 10/12/16 TIME: 14:43 Assessment/Plan Assessment/Plan Chief Complaint/Hosp Course IMPRESSION: 1. Atrial fibrillation with rapid ventricular response. 2. Chest pain with negative troponins x3 and no ischemia and normal ejection fraction by Jdiscan 06/2016. 3. Hypertension, under reasonable control. 4. Generalized weakness. 5. Diabetes mellitus. 6. Hyponatremia.-worsening Recc: -tele -Continue BB with slight increase to improve HR -Digoxin load -Continue ACEI/procardia -transition from lovenox to eliquis Problems: Consultation Date/Type/Reason Admit Date/Time October 09, 2016 at 13:51 Initial Consult Date 10/09/2016 Type of Consultation: Cardiology Reason for Consultation AF Referring Provider: MEGAN WOODARD Exam/Review of Systems Vital Signs Vitals Vital Signs Date Time Temp Pulse Resp B/P Pulse Ox O2 Delivery O2 Flow Rate FiO2 10/12/16 12:10 101 10/12/16 11:28 97.7 20 129/85 99 10/09/16 18:33 Room Air Intake and Output 10/11/16 10/11/16 10/12/16 15:00 23:00 07:00 Intake Total 320 ml 800 ml 500 ml Balance 320 ml 800 ml 500 ml Exam Review of Systems: CONSTITUTIONAL: No fevers, chills. PULMONARY: No sob CARDIOVASCULAR: No chest pain/palpitations GASTROINTESTINAL: No nausea/vomiting. GENITOURINARY: No hematuria/dysuria. MUSCULOSKELETAL: No myagias/arthalgias. PSYCHIATRIC: The patient denies depression. NEUROLOGIC: No weakness Constitutional: alert Psych: no complaints ENMT: mucosa pink and moist Neck: jvd, supple Cardiovascular: irregular rhythm (tachycardic) Gastrointestinal: non-tender, soft Musculoskeletal: muscle tone (normakl) Extremities: edema Neurological: other (No focal deficits) Results Result Diagram: 10/12/16 1125 10/12/16 1125 Results 24 hrs Laboratory Tests Test 10/11/16 16:50 10/11/16 21:13 10/12/16 08:23 10/12/16 11:25 Bedside Glucose 157 184 153 White Blood Count 9.6 Red Blood Count 5.07 Hemoglobin 13.3 Hematocrit 40.8 Mean Corpuscular Volume 80.5 L Mean Corpuscular Hemoglobin 26.2 L Mean Corpuscular Hemoglobin Concent 32.6 Red Cell Distribution Width 12.6 Platelet Count 350 Mean Platelet Volume 10.5 H Neutrophils % 69.6 Lymphocytes % 20.8 Monocytes % 7.3 Eosinophils % 1.0 Basophils % 0.7 Nucleated Red Blood Cells % 0.0 Neutrophils # 6.7 Lymphocytes # 2.0 Monocytes # 0.7 Eosinophils # 0.1 Basophils # 0.1 Nucleated Red Blood Cells # 0.0 Sodium Level 124 L Potassium Level 4.5 Chloride Level 92 L Carbon Dioxide Level 24 Anion Gap 13 Blood Urea Nitrogen 21 H Creatinine 0.74 Glucose Level 261 H Calcium Level 9.2 Test 10/12/16 12:16 Bedside Glucose 211 Medications Medications Current Medications Miscellaneous Information 1 ea NOTE XX ; Start 10/09/16 at 16:00 Glucose (Glutose) 15 gm Q15M PRN PO DECREASED GLUCOSE; Start 10/09/16 at 16:00 Glucose (Glutose) 22.5 gm Q15M PRN PO DECREASED GLUCOSE; Start 10/09/16 at 16: 00 Dextrose (D50w Syringe) 25 ml Q15M PRN IV DECREASED GLUCOSE; Start 10/09/16 at 16:00 Dextrose (D50w Syringe) 50 ml Q15M PRN IV DECREASED GLUCOSE; Start 10/09/16 at 16:00 Glucagon (Glucagen) 1 mg Q15M PRN IM DECREASED GLUCOSE; Start 10/09/16 at 16:00 Glucose (Glutose) 15 gm Q15M PRN BUCCAL DECREASED GLUCOSE; Start 10/09/16 at 16 :00 Insulin Glargine (Lantus) 20 unit DAILY@20 SC Last administered on 10/11/16 21 :28; Admin Dose 20 UNIT; Start 10/09/16 at 20:00 Famotidine (Pepcid) 20 mg BID PO Last administered on 10/12/16 08:33; Admin Dose 20 MG; Start 10/09/16 at 21:00 Diltiazem HCl (Cardizem Iv) 5 mg Q4H PRN IV HR>120 Last administered on 16:24; Admin Dose 5 MG; Start 10/10/16 at 10:00 Lisinopril (Zestril) 20 mg DAILY PO Last administered on 10/12/16 08:33; Admin Dose 20 MG; Start 10/11/16 at 09:00 Metoprolol Tartrate (Lopressor) 50 mg BID PO Last administered on 10/12/16 08: 33; Admin Dose 50 MG; Start 10/10/16 at 21:00 Nifedipine (Procardia Xl) 30 mg DAILY PO Last administered on 10/12/16 08:34; Admin Dose 30 MG; Start 10/11/16 at 09:00 Enoxaparin Sodium (Lovenox) 70 mg Q12 SC Last administered on 10/12/16 08:32; Admin Dose 70 MG; Start 10/10/16 at 21:00 Lisinopril (Zestril) 10 mg DAILY PO Last administered on 10/12/16 12:14; Admin Dose 10 MG; Start 10/12/16 at 12:00 KIMBERLEY OBSORN October 12, 2016 14:50
[2016-10-12] MEDS ORDERED: DIGOXIN 500 MCG INJ IV ONE (15:00)
[2016-10-12] MEDS ORDERED: DIGOXIN 500 MCG INJ IV SCH (18:00)
[2016-10-12] MEDS: APIXABAN 5 MG TABLET PO SCH (20:22)
[2016-10-12] MEDS: INSULIN GLARGINE [LANtus] 3 ML PEN SC SCH (20:28)
[2016-10-13] VITALS (8 sets, daily range): BP systolic 132–157; BP diastolic 73–78; PULSE 76–130; RESP 19–20
[2016-10-13] MEDS: FAMOTIDINE 20 MG TAB PO SCH (08:20)
[2016-10-13] MEDS: LISINOPRIL 20 MG TAB PO SCH (08:21)
[2016-10-13] MEDS: LISINOPRIL 10 MG TAB PO SCH (08:21)
[2016-10-13] MEDS: NIFEdipine (XL) 30 MG TAB PO SCH (08:22)
[2016-10-13] MEDS: APIXABAN 5 MG TABLET PO SCH (08:22)
[2016-10-13] MEDS: METOPROLOL 50 MG TAB PO SCH (08:23)
[2016-10-13] MEDS: INSULIN ASPART [NOVOLOG] 3 ML PEN SC SCH ×2 (08:30→12:29)
[2016-10-13] MEDS ORDERED: LISI20TA11 PO (12:06)
--- NOTE | 2016-10-13 12:10 | DS ---
Date/Time of Note Date/Time of Note DATE: 10/13/16 TIME: 12:09 Discharge Summary Admission/Discharge Info Admit Date/Time October 09, 2016 at 13:51 Discharge Date/Time Final Diagnosis 1. Palpitations secondary to atrial fibrillation with rapid ventricular response, now rate controlled. 2. Chest pain, ruled out for acute coronary syndrome. 3. Type 2 diabetes with A1c found of 7.9. 4. Hyponatremia, resolved. 5. Essential hypertension. Patient Condition: Stable Hx of Present Illness PRESENTING COMPLAINT: Palpitation HISTORY OF PRESENTING COMPLAINT: This is a 71-year-old with a past medical history of high blood pressure and diabetes who presents to the ER brought in by her family because of palpitations. She also has lethargy as well as some dizziness. Symptoms started early this morning and was associated with chest discomfort in the midsternal region. There was no diaphoresis, patient was mildly short of breath. She had no fever and no cough. She denied dysuria or hematuria. Her last bowel movement was yesterday and it was normal, there was no black stools no blood in her stools. She also denied abdominal pain. She was recently seen here June 2016 and at that time she underwent a Lexiscan that was suggestive but not diagnostic of cardiac ischemia. At that time there was no documentation of atrial fibrillation, but it seems like she was seen at a different emergency room since then, and diagnosed with atrial fibrillation. She is however on no anticoagulation, she is also not on a beta- errol therapy but she is on a calcium channel errol therapy. Family is not sure if she has had a GI bleed before limiting anticoagulation therapy. Hospital Course DATE OF ADMISSION: 10/09/2016 DATE OF DISCHARGE: 10/13/2016 HOSPITAL COURSE: This is a 71-year-old female originally admitted on 10/09/2016 , being discharged on 10/13/2016. The patient came in with palpitations and dizziness and had a recent diagnosis of AFib with RVR. She came in with atrial fibrillation with RVR. She was admitted to telemetry floor, seen by cardiology team. She was given antiarrhythmic medications as well. She was also ruled out for acute coronary syndrome. She was seen by cardiology team who made some adjustments to her cardiac medications. Her heart rate was stabilized and became rate controlled after changes were made to her blood pressure medications as mentioned above. She was also started on anticoagulation as well given her atrial fibrillation. Over the course of hospital stay, her chest pain symptoms improved. Her dizziness and palpitation symptoms improved. She was able to ambulate and tolerate a p.o. diet. we had to make some adjustments to her bp meds the last 48 hrs of her hospital stay, and the HR was less than 100, and she will be d/c home in an improved condition. MEDICATIONS: She will go home with the following medications: 1. Eliquis 5 mg p.o. b.i.d. 2. Lisinopril 20 mg PO BID. 3. Metoprolol 75 mg b.i.d. 4. Nifedipine 30 mg daily. 5. Aspart subcutaneously with meals. 6. Lantus 20 units subcutaneously daily. Home Meds Active Scripts Lisinopril* (Lisinopril*) 20 Mg Tablet, 20 MG PO BID, #30 TAB 1 Refill Prov:MEGAN WOODARD S. 10/13/16 Metoprolol Tartrate* (Lopressor*) 50 Mg Tab, 75 MG PO BID, #60 TAB 2 Refills Prov:MEGAN WOODARD S. 10/12/16 Apixaban* (Eliquis*) 2.5 Mg Tablet, 5 MG PO BID, #60 TAB 2 Refills Prov:MEGAN WOODARD S. 10/11/16 Nifedipine (Procardia Xl) 30 Mg Tab.er.24, 30 MG PO DAILY, #30 TAB 2 Refills Prov:MEGAN WOODARD S. 10/11/16 Insulin Glargine* (Lantus*) 100 Unit/Ml Soln, 20 UNIT SC DAILY@20 for 30 Days Prov:SHARON SALMON MD 06/24/16 Insulin Aspart* (Novolog Insulin Pen*) 100 Unit/Ml Soln, 0 UNIT SC WITH MEALS BEDTIME for 30 Days Prov:SHARON SALMON MD 06/24/16 Discontinued Reported Medications Nifedipine* (Nifedipine ER*) 90 Mg Tablet.er, 90 MG PO DAILY, TAB 10/09/16 Lisinopril* (Lisinopril*) 40 Mg Tablet, 40 MG PO DAILY, #30 TAB 10/09/16 Metformin Hcl (Glucophage) 500 Mg Tablet, 850 MG PO WITH MEALS, #90 TAB 1/31/17 Discontinued Scripts Nifedipine (Nifedical Xl) 60 Mg Tab.er.24, 60 MG PO DAILY for 30 Days, TAB Prov:SHARON SALMON MD 06/24/16 Lisinopril* (Lisinopril*) 20 Mg Tablet, 20 MG PO BID for 30 Days, TAB Prov:SHARON SALMON MD 06/24/16 Primary Care Provider [facility] Pending Labs Laboratory Tests Test 10/12/16 12:16 10/12/16 14:26 10/12/16 17:39 10/12/16 20:20 Bedside Glucose 211mg/dL (70-220) 125mg/dL (70-220) 205mg/dL (70-220) Sodium Level 129mmol/L (135-144) Potassium Level 4.6mmol/L (3.5-5.1) Chloride Level 92mmol/L (97-110) Carbon Dioxide Level 26mmol/L (21-31) Anion Gap 16 (8-16) Blood Urea Nitrogen 21mg/dl (7-20) Creatinine 0.88mg/dl (0.44-1.00) Glucose Level 135mg/dl (70-220) Calcium Level 9.4mg/dl (8.4-10.2) Test 10/13/16 02:02 10/13/16 08:28 Bedside Glucose 143mg/dL (70-220) 196mg/dL (70-220) MEGAN WOODARD October 13, 2016 12:10
--- NOTE | 2016-10-13 15:57 | CONS ---
Date/Time of Note Date/Time of Note DATE: 10/13/16 TIME: 15:53 Assessment/Plan Assessment/Plan Chief Complaint/Hosp Course IMPRESSION: 1. Atrial fibrillation with rapid ventricular response.-overall improved HR with some tachy with ambulation only 2. Chest pain with negative troponins x3 and no ischemia and normal ejection fraction by Valeri 06/2016. 3. Hypertension, under reasonable control. 4. Generalized weakness. 5. Diabetes mellitus. 6. Hyponatremia.-worsening Recc: -tele -Continue BB -strart PO digoxin s/p IVP digoxin yesterday -Will change procardiia XL to low dose diltiazem to improve HR control overall -Continue ACEI and f/u BP closeely -Continue eliquis Problems: Consultation Date/Type/Reason Admit Date/Time October 09, 2016 at 13:51 Initial Consult Date 10/09/2016 Type of Consultation: Cardiology Reason for Consultation AF Referring Provider: MEGAN WOODARD Exam/Review of Systems Vital Signs Vitals Vital Signs Date Time Temp Pulse Resp B/P Pulse Ox O2 Delivery O2 Flow Rate FiO2 10/13/16 12:00 93 10/13/16 11:28 98.1 19 157/74 98 10/09/16 18:33 Room Air Intake and Output 10/12/16 10/12/16 10/13/16 15:00 23:00 07:00 Intake Total 1120 ml 60 ml Balance 1120 ml 60 ml Exam Review of Systems: CONSTITUTIONAL: No fevers, chills. PULMONARY: No sob CARDIOVASCULAR: No chest pain/palpitations GASTROINTESTINAL: No nausea/vomiting. GENITOURINARY: No hematuria/dysuria. MUSCULOSKELETAL: No myagias/arthalgias. PSYCHIATRIC: The patient denies depression. NEUROLOGIC: No weakness Constitutional: oriented Psych: no complaints Head: normocephalic ENMT: mucosa pink and moist Neck: jvd, supple Respiratory: diminished breath sounds (at bases/B) Cardiovascular: regular rate and rhythm Gastrointestinal: non-tender, soft Musculoskeletal: muscle tone (normal) Extremities: edema (none) Neurological: other (NO focal deficits) Results Result Diagram: 10/12/16 1125 10/12/16 1426 Results 24 hrs Laboratory Tests Test 10/12/16 17:39 10/12/16 20:20 10/13/16 02:02 10/13/16 08:28 Bedside Glucose 125 205 143 196 Test 10/13/16 12:25 Bedside Glucose 172 Medications Medications Current Medications Miscellaneous Information 1 ea NOTE XX ; Start 10/09/16 at 16:00 Glucose (Glutose) 15 gm Q15M PRN PO DECREASED GLUCOSE; Start 10/09/16 at 16:00 Glucose (Glutose) 22.5 gm Q15M PRN PO DECREASED GLUCOSE; Start 10/09/16 at 16: 00 Dextrose (D50w Syringe) 25 ml Q15M PRN IV DECREASED GLUCOSE; Start 10/09/16 at 16:00 Dextrose (D50w Syringe) 50 ml Q15M PRN IV DECREASED GLUCOSE; Start 10/09/16 at 16:00 Glucagon (Glucagen) 1 mg Q15M PRN IM DECREASED GLUCOSE; Start 10/09/16 at 16:00 Glucose (Glutose) 15 gm Q15M PRN BUCCAL DECREASED GLUCOSE; Start 10/09/16 at 16 :00 Insulin Glargine (Lantus) 20 unit DAILY@20 SC Last administered on 10/12/16 20 :28; Admin Dose 20 UNIT; Start 10/09/16 at 20:00 Famotidine (Pepcid) 20 mg BID PO Last administered on 10/13/16 08:20; Admin Dose 20 MG; Start 10/09/16 at 21:00 Diltiazem HCl (Cardizem Iv) 5 mg Q4H PRN IV HR>120 Last administered on 16:24; Admin Dose 5 MG; Start 10/10/16 at 10:00 Lisinopril (Zestril) 20 mg DAILY PO Last administered on 10/13/16 08:21; Admin Dose 20 MG; Start 10/11/16 at 09:00 Nifedipine (Procardia Xl) 30 mg DAILY PO Last administered on 10/13/16 08:22; Admin Dose 30 MG; Start 10/11/16 at 09:00 Lisinopril (Zestril) 10 mg DAILY PO Last administered on 10/13/16 08:21; Admin Dose 10 MG; Start 10/12/16 at 12:00 Metoprolol Tartrate (Lopressor) 75 mg BID PO Last administered on 10/13/16 08: 23; Admin Dose 75 MG; Start 10/12/16 at 21:00 Apixaban (Eliquis) 5 mg BID PO Last administered on 10/13/16t 08:22; Admin Dose 5 MG; Start 10/12/16 at 21:00 KIMBERLEY OSBORN October 13, 2016 15:57
[2016-10-13] MEDS ORDERED: DILTIAZEM (CD) 180 MG CAP PO SCH (16:00)
[2016-10-14] MEDS ORDERED: DIGOXIN 0.125 MG TAB PO SCH (13:00)
== END 2016-10-13 16:00 | disposition home or self-care (01) | DRG 309 ==
LOC: E/R 11:43 → TEL 13:51
PROVIDERS: ADMIT Family Medicine; ATTEND Family Medicine
DX: I48.91 Unspecified atrial fibrillation (principal); E87.1 Hypo-osmolality and hyponatremia; R65.10 Systemic inflammatory response syndrome (SIRS) of non-infectious origin without acute organ dysfunction; E11.65 Type 2 diabetes mellitus with hyperglycemia; E86.0 Dehydration; I10 Essential (primary) hypertension; R07.9 Chest pain, unspecified; R00.2 Palpitations; R53.1 Weakness; Z90.49 Acquired absence of other specified parts of digestive tract
CPT/HCPCS: 36415; 71010; 80048; 80053; 81003; 82550; 82553; 82962; 83036; 83540; 83690; 83735; 83880; 84443; 84484; 85025; 85610; 85730; 93005; 96361; 96372; 96374; J1650; J1815; J7030

== ENCOUNTER 2016-10-20 21:11 | Inpatient (IN) | payer OTHER ==
[~2016-10-20] VITALS: Ht 160 cm; Wt 73.7 kg
[2016-10-20 01:37] VITALS: PULSE 127
[~2016-10-20 21:11] MED LIST changes: +APIX2.5T PO; -METF500T PO; +METO-429 PO; +NIFE30TA2 PO; -NIFE60TA11 PO
[2016-10-20] MEDS ORDERED: ASPIRIN 81 MG TAB PO STA (21:43)
[2016-10-20 21:59] LABS: ADD SCAN DIFF NO
[2016-10-20] MEDS ORDERED: METOPROLOL 5 MG INJ IV ONE ×3 (22:00→23:30)
[2016-10-20] MEDS ORDERED: SOD CHLORIDE 0.9% 500 ML IV STA (22:00)
[2016-10-20 22:05] LABS: BASOPHILS % 0.4 % (0.0-2.0); EOSINOPHILS # 0.2 10^3/ul (0.0-0.5); EOSINOPHILS % 2.3 % (0.0-7.0); HEMATOCRIT 33.9 % (37.0-47.0); HEMOGLOBIN 11.6 g/dl (12.0-16.0); LYMPHOCYTES # 2.8 10^3/ul (0.8-2.9); LYMPHOCYTES % 30.4 % (15.0-51.0); MEAN CORPUSCULAR HEMOGLOBIN 27.4 pg (29.0-33.0); MEAN CORPUSCULAR HGB CONC 34.2 g/dl (32.0-37.0); MEAN PLATELET VOLUME 9.9 fl (7.4-10.4); MONOCYTE # 0.8 10^3/ul (0.3-0.9); MONOCYTES % 8.1 % (0.0-11.0); NEUTROPHIL # 5.4 10^3/ul (1.6-7.5); NEUTROPHILS % 58.4 % (39.0-77.0); PLATELET COUNT 352 10^3/UL (140-415); RED BLOOD COUNT 4.24 10^6/ul (4.20-5.40); RED CELL DISTRIBUTION WIDTH 12.9 % (11.5-14.5); WHITE BLOOD COUNT 9.3 10^3/ul (4.8-10.8)
[2016-10-20] MEDS ORDERED: INSU100I12 SQ (22:13)
[2016-10-20 22:20] LABS: INR 1.27; PT RATIO 1.3
[2016-10-20 22:21] LABS: PARTIAL THROMBOPLASTIN TIME 33.2 Sec (25.0-35.0)
--- NOTE | 2016-10-20 22:23 | ERA ---
ER Documentation Chief Complaint Date/Time DATE: 10/20/16 TIME: 22:20 Chief Complaint pt reports palpitations and feeling bad for 4 days HPI 71-year-old female with a history of hypertension, diabetes, and recently diagnosed atrial fibrillation admitted here 10/09-10/13 presenting to the ER today with about 1 week of intermittent palpitations and generalized fatigue. She states that her palpitations have gotten worse today, prompting her to come to the ER. She denies any associated chest pain, shortness of breath, cough, fever, chills. She has some dizziness occasionally and generalized fatigue. She was started on Eliquis, metoprolol, lisinopril, nifedipine prior to discharge. She feels like these medications are not helping. She denies any pain anywhere. No recent surgeries, immobilization, or history of cancer. ROS All systems reviewed and are negative except as per history of present illness. Medications Home Meds Active Scripts Lisinopril* (Lisinopril*) 20 Mg Tablet, 20 MG PO BID, #30 TAB 1 Refill Prov:MEGAN WOODARD S. 10/13/16 Metoprolol Tartrate* (Lopressor*) 50 Mg Tab, 75 MG PO BID, #60 TAB 2 Refills Prov:MEGAN WOODARD S. 10/12/16 Apixaban* (Eliquis*) 2.5 Mg Tablet, 5 MG PO BID, #60 TAB 2 Refills Prov:MEGAN WOODARD S. 10/11/16 Nifedipine (Procardia Xl) 30 Mg Tab.er.24, 30 MG PO DAILY, #30 TAB 2 Refills Prov:MEGAN WOODARD S. 10/11/16 Insulin Glargine* (Lantus*) 100 Unit/Ml Soln, 20 UNIT SC DAILY@20 for 30 Days Prov:SHARON SALMON MD 06/24/16 Reported Medications Insulin Lispro (Humalog Kwikpen U-100) 100 Unit/1 Ml Insuln.pen, 5 UNIT SQ WITH MEALS 10/20/16 Discontinued Scripts Insulin Aspart* (Novolog Insulin Pen*) 100 Unit/Ml Soln, 0 UNIT SC WITH MEALS BEDTIME for 30 Days Prov:SHARON SALMON MD 06/24/16 Allergies Allergies: Coded Allergies: No Known Allergy (Unverified , 10/20/16) PMhx/Soc History of Surgery: Yes (cholecystomy) Anesthesia Reaction: No Hx Neurological Disorder: No Hx Respiratory Disorders: No Hx Cardiac Disorders: Yes (HTN, CO AFIB) Hx Psychiatric Problems: No Hx Miscellaneous Medical Probl: Yes (DM) Hx Alcohol Use: No Hx Substance Use: No Hx Tobacco Use: No Smoking Status: Never smoker FmHx Family History: diabetes Physical Exam Vitals Vital Signs Date Time Temp Pulse Resp B/P Pulse Ox O2 Delivery O2 Flow Rate FiO2 10/20/16 23:40 98.3 113 20 104/83 99 Room Air 10/20/16 21:22 98.3 150 20 113/80 99 Physical Exam Const: Comfortably laying in bed, no apparent distress, no diaphoresis Head: Atraumatic Eyes: Normal Conjunctiva ENT: Normal External Ears, Nose and Mouth. Neck: Full range of motion..~ No meningismus. Resp: Clear to auscultation bilaterally Cardio: Irregularly irregular tachycardic rhythm, no murmurs. 2+ distal pulses, equal in all 4 extremities Abd: Soft, non tender, non distended. Normal bowel sounds Skin: No petechiae or rashes Back: No midline or flank tenderness Ext: No cyanosis, or edema Neur: Awake and alert and oriented 3, cranial nerves intact, strength and sensations intact in all 4 extremities, gait normal Psych: Normal Mood and Affect Result Diagram: 10/20/16214210/20/162142 Results 24 hrs Laboratory Tests Test 10/20/16 21:43 10/20/16 22:30 White Blood Count 9.310^3/ul Red Blood Count 4.2410^6/ul Hemoglobin 11.6g/dl Hematocrit 33.9% Mean Corpuscular Volume 80.0fl Mean Corpuscular Hemoglobin 27.4pg Mean Corpuscular Hemoglobin Concent 34.2g/dl Red Cell Distribution Width 12.9% Platelet Count 17610^3/UL Mean Platelet Volume 9.9fl Neutrophils % 58.4% Lymphocytes % 30.4% Monocytes % 8.1% Eosinophils % 2.3% Basophils % 0.4% Nucleated Red Blood Cells % 0.0/100WBC Neutrophils # 5.410^3/ul Lymphocytes # 2.810^3/ul Monocytes # 0.810^3/ul Eosinophils # 0.210^3/ul Basophils # 0.010^3/ul Nucleated Red Blood Cells # 0.010^3/ul Prothrombin Time 16.0Sec Prothrombin Time Ratio 1.3 INR International Normalized Ratio 1.27 Activated Partial Thromboplast Time 33.2Sec Sodium Level 131mmol/L Potassium Level 3.8mmol/L Chloride Level 98mmol/L Carbon Dioxide Level 25mmol/L Anion Gap 12 Blood Urea Nitrogen 9mg/dl Creatinine 0.61mg/dl Glucose Level 134mg/dl Calcium Level 9.3mg/dl Troponin I < 0.012ng/ml Urine Color LT. YELLOW Urine Clarity CLEAR Urine pH 5.5 Urine Specific [place] <=1.005 Urine Ketones NEGATIVE Urine Nitrite NEGATIVE Urine Bilirubin NEGATIVE Urine Urobilinogen 0.2 E.U./dL Urine Leukocyte Esterase TRACE Urine Microscopic RBC 0-2/HPF Urine Microscopic WBC 2-5/HPF Urine Squamous Epithelial Cells FEW Urine Bacteria RARE Urine Hemoglobin NEGATIVE Urine Glucose NEGATIVE% Urine Total Protein NEGATIVE Current Medications Medications (Trade) Dose Ordered Sig/Bryan Route PRN Reason Start Time Stop Time Status Last Admin Dose Admin Aspirin (Aspirin) 162 mg ONCE STAT PO 10/20/16 21:43 10/20/16 21:44 DC 10/20/16 21:52 Metoprolol Tartrate 5 mg 5 mg ONCE ONCE IV 10/20/16 22:00 10/20/16 22:01 DC 10/20/16 22:06 Sodium Chloride (NS) 500 ml @ 500 mls/hr Q1H STAT IV 10/20/16 22:00 10/20/16 22:59 DC 10/20/16 22:06 Metoprolol Tartrate (Lopressor) 5 mg ONCE ONCE IV 10/20/16 23:00 10/20/16 23:01 DC 10/20/16 22:42 Metoprolol Tartrate (Lopressor) 5 mg ONCE ONCE IV 10/20/16 23:30 10/20/16 23:40 DC Diltiazem HCl (Cardizem Iv) 10 mg ONCE ONCE IV 10/21/16 00:00 10/21/16 00:01 DC 10/20/16 23:45 Ondansetron HCl (Zofran Inj) 4 mg ER BRIDGE PRN IV NAUSEA AND/OR VOMITING 10/21/16 00:00 10/21/16 23:59 Acetaminophen (Tylenol Tab) 650 mg ER BRIDGE PRN PO MILD PAIN/FEVER 10/21/16 00:00 10/21/16 23:59 Procedures/MDM EKG: Rate/Rhythm: Atrial fibrillation with rapid ventricular response at 118 bpm QRS, ST, T-waves: No changes consistent w/ acute ischemia Impression: No evidence of ischemia or arrhythmia Rhythm strip: Post diltiazem Atrial fibrillation with rate 75 Chest x-ray does not show any acute abnormalities Labs: No significant abnormalities MDM: Patient is presenting with palpitations and vitals notable for tachycardia. Her EKG shows A. fib with RVR. However she is hemodynamically stable with no evidence of fluid overload. IV fluids and metoprolol 5 mg IV was given twice without any significant change in the rate. Diltiazem 10 mg IV was given with rate control. However patient will need admission for further telemetry monitoring and optimization of her medications for rate control. I do not suspect acute coronary syndrome, pulmonary embolism, sepsis, or CHF at this time. I spoke with Dr. Dobbs, who will admit the patient to the telemetry unit. Departure Diagnosis: Primary Impression: Atrial fibrillation with rapid ventricular response Condition: Serious ROSEANNE ZUNIGA MD Oct 20, 2016 22:23
[2016-10-20 22:27] LABS: ANION GAP 12 (8-16); BLOOD UREA NITROGEN 9 mg/dl (7-20); CALCIUM 9.3 mg/dl (8.4-10.2); CARBON DIOXIDE 25 mmol/L (21-31); CHLORIDE 98 mmol/L (97-110); CREATININE 0.61 mg/dl (0.44-1.00); GLUCOSE 134 mg/dl (70-220); POTASSIUM 3.8 mmol/L (3.5-5.1); SODIUM 131 mmol/L (135-144)
--- NOTE | 2016-10-20 22:37 | RADRPT ---
PROCEDURE: XR Chest. CLINICAL INDICATION: Chest pain. TECHNIQUE: Single frontal chest x-ray. COMPARISON: 10/09/2016 FINDINGS: Heart is enlarged.. There is no congestive heart failure.. There is minimal bibasilar atelectasis. No focal infiltrate is seen. There is no pleural effusion. There is no pneumothorax. The osseous structures are unremarkable. IMPRESSION: Cardiomegaly. Minimal bibasilar atelectasis. RPTAT: [facility]VK .Jair Aragon MD, MD Date Time Electronically viewed and signed by .Jair Aragon MD, on 10/20/2016 22:37 .K/
[2016-10-20 22:42] LABS: TROPONIN-I < 0.012 ng/ml (0.00-0.12)
[2016-10-20 23:08] LABS: ADD UMIC YES; URINE BILIRUBIN (Dip) NEGATIVE (NEGATIVE); URINE BLOOD (Dip) NEGATIVE (NEGATIVE); URINE COLOR LT. YELLOW (YELLOW); URINE GLUCOSE (Dip) NEGATIVE (NEGATIVE); URINE KETONES (Dip) NEGATIVE (NEGATIVE); URINE LEUKOCYTE ESTERASE (Dip) TRACE (NEGATIVE); URINE NITRITE (Dip) NEGATIVE (NEGATIVE); URINE TOTAL PROTEIN (Dip) NEGATIVE (NEGATIVE); URINE UROBILINOGEN (Dip) 0.2 E.U./dL (0.1-1.0)
[2016-10-20 23:24] LABS: BACTERIA,URINE RARE; SQUAMOUS EPITHELIAL CELL,UR FEW; URINE RBCS 0-2 /HPF (0)
[2016-10-21] VITALS (16 sets, daily range): BP systolic 104–128; BP diastolic 59–99; PULSE 78–156; RESP 16–18; TEMP 98.3; Ht 160 cm; Wt 73.7 kg
[2016-10-21] MEDS ORDERED: ACETAMINOPHEN 325 MG TAB PO PRN
[2016-10-21] MEDS ORDERED: SOD CHLORIDE 0.9% 500 ML IV ONE (01:00)
[2016-10-21] MEDS ORDERED: ONDANSETRON 4 MG INJ IV PRN ×2 (01:00)
[2016-10-21] MEDS ORDERED: NACL 0.9% 3 ML SYG IV SCH (01:00)
--- NOTE | 2016-10-21 01:17 | HP ---
Date/Time of Note Date/Time of Note DATE: 10/21/16 TIME: 01:11 Assessment/Plan VTE Prophylaxis VTE Prophylaxis Intervention: other (Eliquis) Lines/Catheters IV Catheter Type (from [facility]): Saline Lock Assessment/Plan Chief Complaint/Hosp Course This is a 71-year-old female being admitted to the telemetry floor for: #1 atrial fibrillation with RVR: Received multiple doses of metoprolol in the ED however patient's rate did not improve. After receiving Cardizem 10 mg IV bolus patient's heart rate did go below 90s. At the current time we will continue her home metoprolol. We will hold Procardia at this time. We will get a cardiology evaluation for medication adjustment. Patient likely will need Cardizem extended release. We will also consider digoxin if needed. She is currently on Eliquis for anticoagulation. Trend troponins #2 diabetes mellitus: Most recent A1c was 8.5. Will continue her current home dose of insulin. Will also put patient on insulin sliding scale. #3 Hypertension: We will continue home lisinopril. Will hold Procardia at this time while awaiting for cardiology for medication readjustment for heart atrial fibrillation. #4 hyponatremia: Sodium of 131. At the current time will encourage p.o. hydration. #45DVT and GI prophylaxis: Patient is currently on Eliquis, put on Protonix. Problems: HPI/ROS Admit Date/Time Admit Date/Time 10/21/16 Hx of Present Illness Chief complaint: 1 week of worsening palpitations. 71-year-old female with a history of hypertension, diabetes, and recently diagnosed atrial fibrillation admitted here 10/09-10/13 presenting to the ER today with about 1 week of intermittent palpitations and generalized fatigue. She states that her palpitations have gotten worse today, prompting her to come to the ER. She denies any associated chest pain, shortness of breath, cough, fever, chills. She has some dizziness occasionally and generalized fatigue. She is on Eliquis, metoprolol, lisinopril, nifedipine. She feels like these medications are not helping. She denies any pain anywhere. Allergies: NKDA Medications: See MAR ROS Const: Negative for fever, chills, weight gain or weight loss, fatigue, or diaphoresis Eyes : No pain discharge or redness or change in visual acuity ENT: No pain, sore throat, congestion, congestion, dysphagia or discharge Respiratory: No shortness of breath, cough, sputum, wheezing, or pleuritic pain Cardiovascular: As per HPI GI : no change in appetite, abdominal pain, nausea, vomiting, diarrhea, constipation, or change in the color his stool Genitourinary: No dysuria, hematuria, flank pain , discharge or CVA tenderness Musculoskeletal: No joint pain, back pain, neck pain, restricted range of motion in neck or joints Skin: No rash, bruising or hives Neuro: No headache, dizziness, syncope, seizure, focal weakness Endocrine: No polyuria, polydipsia, temperature intolerance Psych: No hallucination, depression, anxiety or suicidal ideation PMH/Family/Social Past Medical History diabetes, hypertension, afib Past Surgical History Past Surgical Hx: cholecystectomy Family History Significant Family History: no pertinent family hx Social History Alcohol Use: none Smoking Status: Never smoker Drug Use: none Exam/Review of Systems Vital Signs Vitals Vital Signs Date Time Temp Pulse Resp B/P Pulse Ox O2 Delivery O2 Flow Rate FiO2 10/21/16 00:30 98.3 92 20 87/54 97 Room Air Exam Exam General: Patient is well-developed well-nourished The patient is alert oriented -3 lying comfortably in bed in no acute disc HEENT: Atraumatic, normocephalic. The pupils are equal, round and reactive. Extraocular motor are intact Neck: Supple with full range of motion. No rigidity or meningismus Chest: Nontender Lungs: Clear to auscultation bilaterally no crackles rales or wheezing Heart: Irregularly irregular, no overt murmurs appreciated. Abdomen: Soft , nontender, nondistended , bowel sounds are present. No guarding no rebound tenderness , No masses or organomegaly. No costovertebral temporal angle mass Extremities: Normal to inspection, no edema no cyanosis Neurologic: Normal mental status, speech normal, cranial nerves II through XII are intact, motor and sensory are intact, no focal weakness Additional Comments Rate/Rhythm: Atrial fibrillation with rapid ventricular response at 118 bpm QRS, ST, T-waves: No changes consistent w/ acute ischemia As per ED physician documentation PROCEDURE: XR Chest. CLINICAL INDICATION: Chest pain. TECHNIQUE: Single frontal chest x-ray. COMPARISON: 10/09/2016 FINDINGS: Heart is enlarged.. There is no congestive heart failure.. There is minimal bibasilar atelectasis. No focal infiltrate is seen. There is no pleural effusion. There is no pneumothorax. The osseous structures are unremarkable. IMPRESSION: Cardiomegaly. Minimal bibasilar atelectasis. RPTAT: HMVK .Jair Aragon MD, MD Date Time Electronically viewed and signed by .Jair Aragon MD, MD on 10/20/2016 22:37 Labs Result Diagram: 10/20/16214210/20/162142 Medications Medications Current Medications Ondansetron HCl (Zofran Inj) 4 mg Q6H PRN IV NAUSEA AND/OR VOMITING; Start 10/21 at 01:00; Status UNV Pantoprazole 40 mg 40 mg DAILY@06 IV ; Start 10/21/16 at 06:00; Status UNV Sodium Chloride (NS) 500 ml @ 250 mls/hr Q2H ONCE IV ; Start 10/21/16 at 01:00; Stop 10/21/16 at 02:59; Status UNV ALLI SHELBY Oct 21, 2016 01:17
[2016-10-21] MEDS ORDERED: GLUCOSE GEL 15 GRAM TUBE BUCCAL PRN (01:30)
[2016-10-21] MEDS ORDERED: GLUCOSE GEL 15 GRAM TUBE PO PRN ×2 (01:30)
[2016-10-21] MEDS ORDERED: GLUCAGON 1 MG INJ IM PRN (01:30)
[2016-10-21] MEDS ORDERED: DEXTROSE 50% 50 ML SYRINGE IV PRN ×2 (01:30)
[2016-10-21] MEDS ORDERED: DILTIAZEM 25 MG INJ IV ONE ×4 (02:35→09:00)
[2016-10-21 04:01] LABS: ADD SCAN DIFF NO
[2016-10-21 04:23] LABS: BASOPHIL # 0.1 10^3/ul (0.0-0.1); BASOPHILS % 0.8 % (0.0-2.0); EOSINOPHILS # 0.2 10^3/ul (0.0-0.5); EOSINOPHILS % 3.4 % (0.0-7.0); HEMATOCRIT 32.2 % (37.0-47.0); HEMOGLOBIN 10.7 g/dl (12.0-16.0); LYMPHOCYTES # 2.1 10^3/ul (0.8-2.9); LYMPHOCYTES % 31.6 % (15.0-51.0); MEAN CORPUSCULAR HEMOGLOBIN 26.9 pg (29.0-33.0); MEAN CORPUSCULAR HGB CONC 33.2 g/dl (32.0-37.0); MEAN CORPUSCULAR VOLUME 80.9 fl (82.0-101.0); MEAN PLATELET VOLUME 9.9 fl (7.4-10.4); MONOCYTE # 0.6 10^3/ul (0.3-0.9); MONOCYTES % 8.9 % (0.0-11.0); NEUTROPHIL # 3.6 10^3/ul (1.6-7.5); PLATELET COUNT 299 10^3/UL (140-415); RED BLOOD COUNT 3.98 10^6/ul (4.20-5.40); RED CELL DISTRIBUTION WIDTH 13.2 % (11.5-14.5); WHITE BLOOD COUNT 6.5 10^3/ul (4.8-10.8)
[2016-10-21 04:26] LABS: ALBUMIN 4.2 g/dl (3.3-4.9); ALBUMIN/GLOBULIN RATIO 1.61; BILIRUBIN,INDIRECT 0.3 mg/dl (0-1.1); BILIRUBIN,TOTAL 0.3 mg/dl (0.2-1.3); CREATININE 0.53 mg/dl (0.44-1.00); MAGNESIUM 1.6 mg/dl (1.7-2.5); POTASSIUM 3.6 mmol/L (3.5-5.1); TOTAL PROTEIN 6.8 g/dl (6.1-8.1)
[2016-10-21 04:27] LABS: CREATINE KINASE 43 IU/L (23-200)
[2016-10-21 04:38] LABS: CK-MB 0.88 ng/ml (0.0-2.4)
[2016-10-21 04:41] LABS: TROPONIN-I < 0.012 ng/ml (0.00-0.12)
[2016-10-21] MEDS ORDERED: PANTOPRAZOLE 40 MG INJ IV SCH (06:00)
[2016-10-21] MEDS: INSULIN ASPART [NOVOLOG] 3 ML PEN SC SCH ×7 (07:55→20:29)
[2016-10-21] MEDS: APIXABAN 5 MG TABLET PO SCH ×2 (08:52→20:27)
[2016-10-21] MEDS ORDERED: LISINOPRIL 20 MG TAB PO SCH (09:00)
[2016-10-21] MEDS ORDERED: METOPROLOL 25 MG TAB PO SCH (09:00)
[2016-10-21 10:38] LABS: CREATINE KINASE 35 IU/L (23-200)
[2016-10-21 10:45] LABS: CK-MB 0.67 ng/ml (0.0-2.4)
[2016-10-21 10:52] LABS: TROPONIN-I < 0.012 ng/ml (0.00-0.12)
[2016-10-21] MEDS ORDERED: MAGNESIUM SULFATE 1 GM/D5W 100 ML IVPB ONE (12:30)
[2016-10-21] MEDS ORDERED: DILTIAZEM 25 MG INJ IV PRN (14:00)
[2016-10-21] MEDS ORDERED: DILTIAZEM (CD) 120 MG CAP PO ONE (14:00)
--- NOTE | 2016-10-21 15:13 | CONS ---
DATE OF ADMISSION: 10/20/2016 DATE OF CONSULTATION: 10/21/2016 REASON FOR CONSULTATION: Atrial fibrillation with rapid ventricular response, chest pain. REQUESTING PHYSICIAN: Dr. Rodriguez from the hospitalist service. HISTORY OF PRESENT ILLNESS: Ms. King is a 71-year-old female with a history of hypertension , diabetes mellitus, atrial fibrillation with rapid ventricular response, status post a recent admit for atrial fibrillation with rapid ventricular response and chest pain, who had a recently negative stress test in June of 2016, revealing no ischemia preserved EF by echo, who now re-presents w ith complaints of recurrent palpitations and substernal chest pain. Upon arrival in the emergency d epartment a temperature of 98.3, blood pressure of 113/80, pulse 115, respiratory rate 20, saturatin g 99%. The patient's labs revealed a white count of 9.3, hemoglobin 11.6, platelet count of 352. S odium of 131, potassium 3.8, creatinine 0.6, BUN 9. Troponin negative. INR of 1.2. UA negative. The patient underwent a chest x-ray, revealing cardiomegaly and minimal bibasilar atelectasis. The patient's electrocardiogram revealed atrial fibrillation with rapid ventricular response, rate of 11 8, with normal axis, normal intervals, nonspecific ST and T-wave abnormalities diffusely. The patie nt was subsequently admitted to the floor and since admit to the floor, has been reinitiated on base line beta errol, given Zestril, continued on Eliquis, and has required IV pushes of diltiazem in o rder to improve heart rate control. The patient at this time denies ongoing chest pain, states she has mild palpitations. PAST MEDICAL HISTORY: As above in the HPI. MEDICATIONS CURRENTLY IN HOSPITAL: 1. Lantus 20 units subcutaneous daily. 2. Apixaban 5 mg b.i.d. 3. Zestril 20 mg b.i.d. 4. Metoprolol 75 mg b.i.d. 5. Insulin sliding scale. 6. Protonix 40 mg IV daily. 7. Zofran p.r.n. ALLERGIES: NO KNOWN DRUG ALLERGIES. SOCIAL HISTORY: No tobacco, ETOH or illicit drug use. FAMILY HISTORY: No history of sudden cardiac or early CAD. REVIEW OF SYSTEMS: As above in the HPI. CONSTITUTIONAL: No fevers or chills. PULMONARY: No shortness of breath. CARDIOVASCULAR: Palpitations, chest pain. GASTROINTESTINAL: No vomiting. GENITOURINARY: No hematuria. MUSCULOSKELETAL: Degenerative joint disease. PSYCHIATRIC: No documented psych history. NEUROLOGIC: No documented history of CVA. ENDOCRINE: Diabetes mellitus. PHYSICAL EXAMINATION: VITAL SIGNS: Temperature 98.3, blood pressure 123/87, pulse between 150 and 120, saturating 99%. GENERAL: The patient is alert, awake, in no acute distress. NECK: JVP approximately 8 cm of water. CHEST: Fair air movement throughout. HEART: Tachycardic, irregularly irregular, I/ systolic murmur, nondisplaced PMI. ABDOMEN: Positive bowel sounds, soft. EXTREMITIES: No pitting edema, 1+ pulses bilaterally, posterior tibial. LABORATORY: As above in the HPI, with the most recently from today: Sodium 139, potassium 3.6, crea tinine 0.5, BUN 7, troponin negative x2. White blood cell count 6.5, hemoglobin 10.7, platelet coun t 299, UA negative. IMAGING STUDIES: As above in the HPI. No further imaging studies for my review at this time. ECG: As above in the HPI. No further electrocardiograms for my review at this time. IMPRESSION: 1. Atrial fibrillation with rapid ventricular response. 2. Chest pain, improved, with improved rate control and a negative Lexiscan for ischemia in 2016. 3. Hypertension. Under reasonable control at this time. 4. Diabetes mellitus. 5. Abnormal electrocardiogram, with nonspecific ST-T abnormalities diffusely and negative troponins x2. RECOMMENDATIONS: 1. At this time would maintain the patient on metoprolol, with a slight increase to provide control . 2. Will start the patient on diltiazem for between beta errol and calcium channel errol, to improve heart rate control. 3. If the patient continues to have rapid atrial fibrillation, will initiate the patient on digoxin and continue to follow heart rate and blood pressure closely. 4. Continue to check serial EKGs to assess for any significant ongoing changes and check a final tr oponin to complete the patient's rule out for myocardial infarction. Additionally, will check a TSH to ensure that subclinical hyperthyroidism is not contributing to bouts of tachyarrhythmia. Thank you for allowing me to take part in the care of this patient. I will continue to follow along very closely with you, with further recommendations to be made as the patient progresses through [facility] inpatient hospital clinical course. Dictated By: KIMBERLEY ALBA/MOHIT Conf#: [id number] DID#: [id number] CC: AMALIA RODRIGUEZ MD;*End*
[2016-10-21] MEDS ORDERED: morphine 2 MG INJ IV PRN (19:00)
[2016-10-21] MEDS: INSULIN GLARGINE [LANtus] 3 ML PEN SC SCH (20:25)
[2016-10-21] MEDS: DILTIAZEM (CD) 120 MG CAP PO SCH (20:27)
[2016-10-21] MEDS: METOPROLOL 25 MG TAB PO SCH (20:28)
[2016-10-21] MEDS: LISINOPRIL 20 MG TAB PO SCH (20:29)
[2016-10-22] VITALS (11 sets, daily range): BP systolic 107–134; BP diastolic 54–75; PULSE 72–107; RESP 16–19
[2016-10-22] MEDS: ACCUCHECK AT 2AM (Patients on SS coverage) XX SCH (02:00)
[2016-10-22] MEDS: PANTOPRAZOLE (EC) 40 MG TAB PO SCH (05:24)
[2016-10-22 06:56] LABS: ADD SCAN DIFF NO
[2016-10-22 07:03] LABS: BASOPHIL # 0.1 10^3/ul (0.0-0.1); BASOPHILS % 0.5 % (0.0-2.0); EOSINOPHILS # 0.1 10^3/ul (0.0-0.5); EOSINOPHILS % 0.6 % (0.0-7.0); HEMATOCRIT 34.2 % (37.0-47.0); HEMOGLOBIN 11.4 g/dl (12.0-16.0); LYMPHOCYTES # 1.6 10^3/ul (0.8-2.9); LYMPHOCYTES % 15.8 % (15.0-51.0); MEAN CORPUSCULAR HEMOGLOBIN 27.1 pg (29.0-33.0); MEAN CORPUSCULAR HGB CONC 33.3 g/dl (32.0-37.0); MEAN CORPUSCULAR VOLUME 81.2 fl (82.0-101.0); MEAN PLATELET VOLUME 10.2 fl (7.4-10.4); MONOCYTE # 0.8 10^3/ul (0.3-0.9); MONOCYTES % 7.3 % (0.0-11.0); NEUTROPHIL # 7.7 10^3/ul (1.6-7.5); NEUTROPHILS % 75.4 % (39.0-77.0); PLATELET COUNT 324 10^3/UL (140-415); RED BLOOD COUNT 4.21 10^6/ul (4.20-5.40); RED CELL DISTRIBUTION WIDTH 13.2 % (11.5-14.5); WHITE BLOOD COUNT 10.2 10^3/ul (4.8-10.8)
[2016-10-22 07:29] LABS: CALCIUM 9.2 mg/dl (8.4-10.2); CREATININE 0.75 mg/dl (0.44-1.00); MAGNESIUM 1.8 mg/dl (1.7-2.5); POTASSIUM 4.2 mmol/L (3.5-5.1)
[2016-10-22 07:32] LABS: CHOL/HDL RATIO 5.1 RATIO
[2016-10-22] MEDS: INSULIN ASPART [NOVOLOG] 3 ML PEN SC SCH ×7 (07:55→20:28)
[2016-10-22] MEDS: APIXABAN 5 MG TABLET PO SCH ×2 (08:07→20:21)
[2016-10-22] MEDS: DILTIAZEM (CD) 120 MG CAP PO SCH ×2 (08:08→20:21)
[2016-10-22] MEDS: LISINOPRIL 20 MG TAB PO SCH ×2 (08:09→20:21)
[2016-10-22] MEDS: METOPROLOL 25 MG TAB PO SCH ×2 (08:09→20:20)
--- NOTE | 2016-10-22 10:19 | CONS ---
Date/Time of Note Date/Time of Note DATE: 10/22/16 TIME: 10:18 Assessment/Plan Assessment/Plan Additional Assessment/Plan 1. Atrial fibrillation with rapid ventricular response- still in a. fib - rate on high side - will increase dilt to TID dose now 2. Chest pain, improved, with improved rate control and a negative Lexiscan for ischemia in June of 2016- r/o OR, dobt ischemia. 3. Hypertension. Under reasonable control at this time- wll rx, con't med rx 4. Diabetes mellitus- on meds, will keep euglycemic, 5. Abnormal electrocardiogram, with nonspecific ST-T abnormalities diffusely and negative troponins x2. Consultation Date/Type/Reason Admit Date/Time Oct 20, 2016 at 23:43 Initial Consult Date 24 HR Interval Summary Free Text/Dictation NO acute change - increase dilt dose now - no CP ROS: No fever, no chills, no nausea, no vomiting, no diarrhea/constipation No recent weight changes No chest pain, no PND, no orthopnea No dizziness, blurred vision No thirst, no heat or cold intolerance Exam/Review of Systems Vital Signs Vitals Vital Signs Date Time Temp Pulse Resp B/P Pulse Ox O2 Delivery O2 Flow Rate FiO2 10/22/16 08:33 107 10/22/16 07:16 98.1 18 110/60 96 10/21/16 01:30 Room Air Intake and Output 10/21/16 10/21/16 10/22/16 15:00 23:00 07:00 Intake Total 1600 ml 500 ml Balance 1600 ml 500 ml Exam General: WN/WD/NAD, AOx 3 HEENT: Unicetric/atraumatic/EOMI (follow commands) NECK: JVD elevated, no thyromegaly Lymph: no lymphadenopathy HEART: IRregular with no S3, II/ systolic murmur at apex LUNGS: Coarse sounds ABD: soft, NT, ND, +BS : Intact Neuro: non focal SKIN: chronic changes EXT: trace edema Results Result Diagram: 10/22/16 0600 10/22/16 0600 Results 24 hrs Laboratory Tests Test 10/21/16 11:55 10/21/16 14:55 10/21/16 17:40 10/21/16 20:22 Bedside Glucose 131 119 147 Thyroid Stimulating Hormone (TSH) 0.801 Test 10/22/16 02:29 10/22/16 06:00 10/22/16 08:06 Bedside Glucose 167 112 White Blood Count 10.2 # Red Blood Count 4.21 Hemoglobin 11.4 L Hematocrit 34.2 L Mean Corpuscular Volume 81.2 L Mean Corpuscular Hemoglobin 27.1 L Mean Corpuscular Hemoglobin Concent 33.3 Red Cell Distribution Width 13.2 Platelet Count 324 Mean Platelet Volume 10.2 Neutrophils % 75.4 Lymphocytes % 15.8 Monocytes % 7.3 Eosinophils % 0.6 Basophils % 0.5 Nucleated Red Blood Cells % 0.0 Neutrophils # 7.7 H Lymphocytes # 1.6 Monocytes # 0.8 Eosinophils # 0.1 Basophils # 0.1 Nucleated Red Blood Cells # 0.0 Sodium Level 133 L Potassium Level 4.2 Chloride Level 99 Carbon Dioxide Level 25 Anion Gap 13 Blood Urea Nitrogen 14 Creatinine 0.75 Glucose Level 122 Calcium Level 9.2 Magnesium Level 1.8 Triglycerides Level 132 Cholesterol Level 164 LDL Cholesterol, Calculated 106 HDL Cholesterol 32 L Cholesterol/HDL Ratio 5.1 Medications Medications Current Medications Ondansetron HCl (Zofran Inj) 4 mg Q6H PRN IV NAUSEA AND/OR VOMITING; Start 10/21 at 01:00 Apixaban (Eliquis) 5 mg BID PO Last administered on 10/22/16 08:07; Admin Dose 5 MG; Start 10/21/16 at 09:00 Insulin Glargine (Lantus) 20 unit DAILY@20 SC Last administered on 10/21/16 20: 25; Admin Dose 20 UNIT; Start 10/21/16 at 20:00 Miscellaneous Information 1 ea NOTE XX ; Start 10/21/16 at 01:30 Glucose (Glutose) 15 gm Q15M PRN PO DECREASED GLUCOSE; Start 10/21/16 at 01:30 Glucose (Glutose) 22.5 gm Q15M PRN PO DECREASED GLUCOSE; Start 10/21/16 at 01:30 Dextrose (D50w Syringe) 25 ml Q15M PRN IV DECREASED GLUCOSE; Start 10/21/16 at 01:30 Dextrose (D50w Syringe) 50 ml Q15M PRN IV DECREASED GLUCOSE; Start 10/21/16 at 01:30 Glucagon (Glucagen) 1 mg Q15M PRN IM DECREASED GLUCOSE; Start 10/21/16 at 01:30 Glucose (Glutose) 15 gm Q15M PRN BUCCAL DECREASED GLUCOSE; Start 10/21/16 at 01: 30 Diagnostic Test (Pha) (Accu-Chek) 1 ea 02 XX ; Start 10/22/16 at 02:00 Lisinopril (Zestril) 10 mg BID PO Last administered on 10/21/16 20:29; Admin Dose 10 MG; Start 10/21/16 at 21:00 Metoprolol Tartrate (Lopressor) 100 mg BID PO Last administered on 10/21/16 20: 28; Admin Dose 100 MG; Start 10/21/16 at 21:00 Diltiazem HCl (Cardizem Cd) 120 mg BID PO Last administered on 10/22/16 08:08; Admin Dose 120 MG; Start 10/21/16 at 21:00 Diltiazem HCl (Cardizem Iv) 5 mg Q4 PRN IV HR>110 Hold SBP<100; Start 10/21/16 at 14:00 Morphine Sulfate (morphine) 2 mg Q4H PRN IV PAIN Last administered on 10/21/16 18:38; Admin Dose 2 MG; Start 10/21/16 at 19:00 Pantoprazole (Protonix Tab) 40 mg DAILY@06 PO Last administered on 10/22/16 05: 24; Admin Dose 40 MG; Start 10/22/16 at 06:00 JEFFY MARTINES MD Oct 22, 2016 10:19
--- NOTE | 2016-10-22 12:24 | PN ---
Date/Time of Note Date/Time of Note DATE: 10/22/16 TIME: 12:17 Assessment/Plan VTE Prophylaxis VTE Prophylaxis Intervention: other Lines/Catheters IV C[facility]from [facility] Saline Lock Urinary Cath still in place: No Assessment/Plan Assessment/Plan #1 atrial fibrillation with RVR: Improved rate control but not quite optimal #2 diabetes mellitus: Most recent A1c was 8.5.: Patient is having excellent glycemic control on current regimen #3 Hypertension: Good control on current regimen #4 Mild dyslipidemia with a low HDL: Start low dose statin #5DVT and GI prophylaxis: Patient is currently on Eliquis, put on Protonix. Dispo: * Cardiology increased Cardizem to 3 times a day /monitor heart rate /patient is status recent extensive workup /once rate control is achieved, patient will be discharged. Subjective 24 Hr Interval Summary Free Text/Dictation Patient remains stable without chest pain or palpitation. Exam/Review of Systems Vital Signs Vitals Vital Signs Date Time Temp Pulse Resp B/P Pulse Ox O2 Delivery O2 Flow Rate FiO2 10/22/16 11:29 98.1 80 18 127/74 96 10/21/16 01:30 Room Air Intake and Output 10/21/16 10/21/16 10/22/16 14:59 22:59 06:59 Intake Total 1600 ml 500 ml Balance 1600 ml 500 ml Exam General: Patient is well-developed well-nourished The patient is alert oriented -3 lying comfortably in bed in no acute disc HEENT: Atraumatic, normocephalic. The pupils are equal, round and reactive. Extraocular motor are intact Neck: Supple with full range of motion. No rigidity or meningismus Chest: Nontender Lungs: Clear to auscultation bilaterally no crackles rales or wheezing Heart: Irregularly irregular, no overt murmurs appreciated. Abdomen: Soft , nontender, nondistended , bowel sounds are present. No guarding no rebound tenderness , No masses or organomegaly. No costovertebral temporal angle mass Extremities: Normal to inspection, no edema no cyanosis Neurologic: Normal mental status, speech normal, cranial nerves II through XII are intact, motor and sensory are intact, no focal weakness Results Result Diagram: 10/22/16 0600 10/22/16 0600 Results 24 hrs Laboratory Tests Test 10/21/16 14:55 10/21/16 17:40 10/21/16 20:22 10/22/16 02:29 Thyroid Stimulating Hormone (TSH) 0.801 Bedside Glucose 119 147 167 Test 10/22/16 06:00 10/22/16 08:06 White Blood Count 10.2 # Red Blood Count 4.21 Hemoglobin 11.4 L Hematocrit 34.2 L Mean Corpuscular Volume 81.2 L Mean Corpuscular Hemoglobin 27.1 L Mean Corpuscular Hemoglobin Concent 33.3 Red Cell Distribution Width 13.2 Platelet Count 324 Mean Platelet Volume 10.2 Neutrophils % 75.4 Lymphocytes % 15.8 Monocytes % 7.3 Eosinophils % 0.6 Basophils % 0.5 Nucleated Red Blood Cells % 0.0 Neutrophils # 7.7 H Lymphocytes # 1.6 Monocytes # 0.8 Eosinophils # 0.1 Basophils # 0.1 Nucleated Red Blood Cells # 0.0 Sodium Level 133 L Potassium Level 4.2 Chloride Level 99 Carbon Dioxide Level 25 Anion Gap 13 Blood Urea Nitrogen 14 Creatinine 0.75 Glucose Level 122 Calcium Level 9.2 Magnesium Level 1.8 Triglycerides Level 132 Cholesterol Level 164 LDL Cholesterol, Calculated 106 HDL Cholesterol 32 L Cholesterol/HDL Ratio 5.1 Bedside Glucose 112 Medications Medications Current Medications Ondansetron HCl (Zofran Inj) 4 mg Q6H PRN IV NAUSEA AND/OR VOMITING; Start 10/21 at 01:00 Apixaban (Eliquis) 5 mg BID PO Last administered on 10/22/16 08:07; Admin Dose 5 MG; Start 10/21/16 at 09:00 Insulin Glargine (Lantus) 20 unit DAILY@20 SC Last administered on 10/21/16 20: 25; Admin Dose 20 UNIT; Start 10/21/16 at 20:00 Miscellaneous Information 1 ea NOTE XX ; Start 10/21/16 at 01:30 Glucose (Glutose) 15 gm Q15M PRN PO DECREASED GLUCOSE; Start 10/21/16 at 01:30 Glucose (Glutose) 22.5 gm Q15M PRN PO DECREASED GLUCOSE; Start 10/21/16 at 01:30 Dextrose (D50w Syringe) 25 ml Q15M PRN IV DECREASED GLUCOSE; Start 10/21/16 at 01:30 Dextrose (D50w Syringe) 50 ml Q15M PRN IV DECREASED GLUCOSE; Start 10/21/16 at 01:30 Glucagon (Glucagen) 1 mg Q15M PRN IM DECREASED GLUCOSE; Start 10/21/16 at 01:30 Glucose (Glutose) 15 gm Q15M PRN BUCCAL DECREASED GLUCOSE; Start 10/21/16 at 01: 30 Diagnostic Test (Pha) (Accu-Chek) 1 ea 02 XX ; Start 10/22/16 at 02:00 Lisinopril (Zestril) 10 mg BID PO Last administered on 10/21/16 20:29; Admin Dose 10 MG; Start 10/21/16 at 21:00 Metoprolol Tartrate (Lopressor) 100 mg BID PO Last administered on 10/21/16 20: 28; Admin Dose 100 MG; Start 10/21/16 at 21:00 Diltiazem HCl (Cardizem Cd) 120 mg BID PO Last administered on 10/22/16 08:08; Admin Dose 120 MG; Start 10/21/16 at 21:00 Diltiazem HCl (Cardizem Iv) 5 mg Q4 PRN IV HR>110 Hold SBP<100; Start 10/21/16 at 14:00 Morphine Sulfate (morphine) 2 mg Q4H PRN IV PAIN Last administered on 10/21/16 18:38; Admin Dose 2 MG; Start 10/21/16 at 19:00 Pantoprazole (Protonix Tab) 40 mg DAILY@06 PO Last administered on 10/22/16 05: 24; Admin Dose 40 MG; Start 10/22/16 at 06:00 Diltiazem HCl (Cardizem) 120 mg TID PO ; Start 10/22/16 at 13:00 AMALIA RODRIGUEZ Oct 22, 2016 12:24
[2016-10-22] MEDS: DILTIAZEM 60 MG TAB PO SCH ×2 (12:25→20:20)
[2016-10-22] MEDS: ATORVASTATIN 20 MG TAB PO SCH (20:21)
[2016-10-22] MEDS: INSULIN GLARGINE [LANtus] 3 ML PEN SC SCH (20:26)
[2016-10-23] VITALS (13 sets, daily range): BP systolic 100–138; BP diastolic 55–69; PULSE 40–98; RESP 18–20
[2016-10-23] MEDS: ACCUCHECK AT 2AM (Patients on SS coverage) XX SCH (02:00)
[2016-10-23] MEDS: PANTOPRAZOLE (EC) 40 MG TAB PO SCH (06:08)
[2016-10-23 07:06] LABS: ADD SCAN DIFF NO
[2016-10-23 07:16] LABS: BASOPHILS % 0.3 % (0.0-2.0); EOSINOPHILS # 0.1 10^3/ul (0.0-0.5); EOSINOPHILS % 0.6 % (0.0-7.0); HEMATOCRIT 33.7 % (37.0-47.0); HEMOGLOBIN 11.1 g/dl (12.0-16.0); LYMPHOCYTES # 1.4 10^3/ul (0.8-2.9); LYMPHOCYTES % 11.9 % (15.0-51.0); MEAN CORPUSCULAR HEMOGLOBIN 26.6 pg (29.0-33.0); MEAN CORPUSCULAR HGB CONC 32.9 g/dl (32.0-37.0); MEAN CORPUSCULAR VOLUME 80.6 fl (82.0-101.0); MEAN PLATELET VOLUME 10.3 fl (7.4-10.4); MONOCYTE # 0.7 10^3/ul (0.3-0.9); MONOCYTES % 5.5 % (0.0-11.0); NEUTROPHIL # 9.9 10^3/ul (1.6-7.5); NEUTROPHILS % 81.3 % (39.0-77.0); PLATELET COUNT 327 10^3/UL (140-415); RED BLOOD COUNT 4.18 10^6/ul (4.20-5.40); RED CELL DISTRIBUTION WIDTH 13.5 % (11.5-14.5); WHITE BLOOD COUNT 12.1 10^3/ul (4.8-10.8)
[2016-10-23 07:34] LABS: CALCIUM 9.5 mg/dl (8.4-10.2); CREATININE 1.02 mg/dl (0.44-1.00); POTASSIUM 4.5 mmol/L (3.5-5.1)
[2016-10-23] MEDS: INSULIN ASPART [NOVOLOG] 3 ML PEN SC SCH ×7 (08:11→21:12)
[2016-10-23] MEDS: LISINOPRIL 20 MG TAB PO SCH ×2 (08:46→21:08)
[2016-10-23] MEDS: DILTIAZEM 60 MG TAB PO SCH ×3 (08:47→21:08)
[2016-10-23] MEDS: APIXABAN 5 MG TABLET PO SCH ×2 (08:47→21:09)
[2016-10-23] MEDS: METOPROLOL 25 MG TAB PO SCH ×2 (08:48→21:09)
--- NOTE | 2016-10-23 08:54 | RADRPT ---
Vent Rate: 98 bpm RR Interval: 0 msec [place] Interval: 0 msec QRS Duration: 80 msec QT Interval: 308 msec QTC Interval: 393 msec P-R-T [place]: 0 - 2 - 47 degrees Atrial fibrillation with premature ventricular or aberrantly conducted complexes Abnormal ECG Electronically Signed By: Gaurang Abarca [id number]
--- NOTE | 2016-10-23 11:27 | CONS ---
Date/Time of Note Date/Time of Note DATE: 10/23/16 TIME: 11:26 Assessment/Plan Assessment/Plan Additional Assessment/Plan 1. Atrial fibrillation with rapid ventricular response- still in a. fib - rate on high side - will increase dilt to TID dose now - rate well Rx, will monitor clonically 2. Chest pain, improved, with improved rate control and a negative Lexiscan for ischemia in June of 2016- r/o [place], dobt ischemia.- RESOLVED 3. Hypertension. Under reasonable control at this time- wll rx, con't med rx - in good range 4. Diabetes mellitus- on meds, will keep euglycemic, 5. Abnormal electrocardiogram, with nonspecific ST-T abnormalities diffusely and negative troponins x2. Consultation Date/Type/Reason Admit Date/Time Oct 20, 2016 at 23:43 24 HR Interval Summary Free Text/Dictation NO acute events - rate well Rx on meds ROS: No fever, no chills, no nausea, no vomiting, no diarrhea/constipation No recent weight changes No chest pain, no PND, no orthopnea No dizziness, blurred vision No thirst, no heat or cold intolerance Exam/Review of Systems Vital Signs Vitals Vital Signs Date Time Temp Pulse Resp B/P Pulse Ox O2 Delivery O2 Flow Rate FiO2 10/23/16 08:08 98 10/23/16 08:00 97.2 18 133/66 98 10/21/16 01:30 Room Air Intake and Output 10/22/16 10/22/16 10/23/16 15:00 23:00 07:00 Intake Total 850 ml 400 ml Balance 850 ml 400 ml Exam General: WN/WD/NAD, AOx 3 HEENT: Unicetric/atraumatic/EOMI follow commands) NECK: JVD elevated, no thyromegaly Lymph: no lymphadenopathy HEART: IRR IRREGular with no S3, II/ systolic murmur at apex LUNGS: Coarse sounds ABD: soft, NT, ND, +BS : Intact Neuro: non focal SKIN: chronic changes EXT: trace edema Results Result Diagram: 10/23/16 0600 10/23/16 0600 Results 24 hrs Laboratory Tests Test 10/22/16 12:18 10/22/16 17:27 10/22/16 20:20 10/23/16 02:15 Bedside Glucose 157 129 214 160 Test 10/23/16 06:00 10/23/16 08:09 10/23/16 11:17 White Blood Count 12.1 H Red Blood Count 4.18 L Hemoglobin 11.1 L Hematocrit 33.7 L Mean Corpuscular Volume 80.6 L Mean Corpuscular Hemoglobin 26.6 L Mean Corpuscular Hemoglobin Concent 32.9 Red Cell Distribution Width 13.5 Platelet Count 327 Mean Platelet Volume 10.3 Neutrophils % 81.3 H Lymphocytes % 11.9 L Monocytes % 5.5 Eosinophils % 0.6 Basophils % 0.3 Nucleated Red Blood Cells % 0.0 Neutrophils # 9.9 H Lymphocytes # 1.4 Monocytes # 0.7 Eosinophils # 0.1 Basophils # 0.0 Nucleated Red Blood Cells # 0.0 Sodium Level 133 L Potassium Level 4.5 Chloride Level 97 Carbon Dioxide Level 25 Anion Gap 16 Blood Urea Nitrogen 20 Creatinine 1.02 H Glucose Level 171 Calcium Level 9.5 Bedside Glucose 156 233 H Medications Medications Current Medications Ondansetron HCl (Zofran Inj) 4 mg Q6H PRN IV NAUSEA AND/OR VOMITING; Start 10/21 at 01:00 Apixaban (Eliquis) 5 mg BID PO Last administered on 10/23/16 08:47; Admin Dose 5 MG; Start 10/21/16 at 09:00 Insulin Glargine (Lantus) 20 unit DAILY@20 SC Last administered on 10/22/16 20: 26; Admin Dose 20 UNIT; Start 10/21/16 at 20:00 Miscellaneous Information 1 ea NOTE XX ; Start 10/21/16 at 01:30 Glucose (Glutose) 15 gm Q15M PRN PO DECREASED GLUCOSE; Start 10/21/16 at 01:30 Glucose (Glutose) 22.5 gm Q15M PRN PO DECREASED GLUCOSE; Start 10/21/16 at 01:30 Dextrose (D50w Syringe) 25 ml Q15M PRN IV DECREASED GLUCOSE; Start 10/21/16 at 01:30 Dextrose (D50w Syringe) 50 ml Q15M PRN IV DECREASED GLUCOSE; Start 10/21/16 at 01:30 Glucagon (Glucagen) 1 mg Q15M PRN IM DECREASED GLUCOSE; Start 10/21/16 at 01:30 Glucose (Glutose) 15 gm Q15M PRN BUCCAL DECREASED GLUCOSE; Start 10/21/16 at 01: 30 Diagnostic Test (Pha) (Accu-Chek) 1 ea 02 XX ; Start 10/22/16 at 02:00 Lisinopril (Zestril) 10 mg BID PO Last administered on 10/23/16 08:46; Admin Dose 10 MG; Start 10/21/16 at 21:00 Metoprolol Tartrate (Lopressor) 100 mg BID PO Last administered on 10/23/16 08: 48; Admin Dose 100 MG; Start 10/21/16 at 21:00 Diltiazem HCl (Cardizem Iv) 5 mg Q4 PRN IV HR>110 Hold SBP<100; Start 10/21/16 at 14:00 Morphine Sulfate (morphine) 2 mg Q4H PRN IV PAIN Last administered on 10/21/16 18:38; Admin Dose 2 MG; Start 10/21/16 at 19:00 Pantoprazole (Protonix Tab) 40 mg DAILY@06 PO Last administered on 10/23/16 06: 08; Admin Dose 40 MG; Start 10/22/16 at 06:00 Diltiazem HCl (Cardizem) 120 mg TID PO Last administered on 10/23/16 08:47; Admin Dose 120 MG; Start 10/22/16 at 13:00 Atorvastatin Calcium (Lipitor) 20 mg HS PO Last administered on 10/22/16 20:21 ; Admin Dose 20 MG; Start 10/22/16 at 21:00 JEFFY MARTINES MD Oct 23, 2016 11:27
--- NOTE | 2016-10-23 16:41 | PN ---
Date/Time of Note Date/Time of Note DATE: 10/23/16 TIME: 16:37 Assessment/Plan VTE Prophylaxis VTE Prophylaxis Intervention: other (Eliquis) Lines/Catheters IV Catheter Type (from [facility]): Saline Lock Urinary Cath still in place: No Assessment/Plan Assessment/Plan #1 atrial fibrillation with RVR: Improved rate control but not quite optimal #2 diabetes mellitus: Most recent A1c was 8.5.: Patient is having excellent glycemic control on current regimen #3 Hypertension: Good control on current regimen #4 Mild dyslipidemia with a low HDL: Start low dose statin #5DVT and GI prophylaxis: Patient is currently on Eliquis, put on Protonix. Dispo: * Will discuss with cardiology regarding wide variance in heart rate from 40s all the way through 130s intermittently. Patient may benefit from ablation? Follow cardiology recommendations. If no further interventions, consider discharge. Subjective 24 Hr Interval Summary Free Text/Dictation Patient denies chest pain or palpitation, however on the monitor her heart rate ranges from 40s-50s all the way through 120s-130s. Exam/Review of Systems Vital Signs Vitals Vital Signs Date Time Temp Pulse Resp B/P Pulse Ox O2 Delivery O2 Flow Rate FiO2 10/23/16 16:27 51 10/23/16 16:26 98.0 18 118/58 98 10/21/16 01:30 Room Air Intake and Output 10/22/16 10/22/16 10/23/16 15:00 23:00 07:00 Intake Total 850 ml 400 ml Balance 850 ml 400 ml Exam General: Patient is well-developed well-nourished The patient is alert oriented -3 lying comfortably in bed in no acute disc HEENT: Atraumatic, normocephalic. The pupils are equal, round and reactive. Extraocular motor are intact Neck: Supple with full range of motion. No rigidity or meningismus Chest: Nontender Lungs: Clear to auscultation bilaterally no crackles rales or wheezing Heart: Irregularly irregular, no overt murmurs appreciated. Abdomen: Soft , nontender, nondistended , bowel sounds are present. No guarding no rebound tenderness , No masses or organomegaly. No costovertebral temporal angle mass Extremities: Normal to inspection, no edema no cyanosis Neurologic: Normal mental status, speech normal, cranial nerves II through XII are intact, motor and sensory are intact, no focal weakness Results Result Diagram: 10/23/16 0600 10/23/16 0600 Results 24 hrs Laboratory Tests Test 10/22/16 17:27 10/22/16 20:20 10/23/16 02:15 10/23/16 06:00 Bedside Glucose 129 214 160 White Blood Count 12.1 H Red Blood Count 4.18 L Hemoglobin 11.1 L Hematocrit 33.7 L Mean Corpuscular Volume 80.6 L Mean Corpuscular Hemoglobin 26.6 L Mean Corpuscular Hemoglobin Concent 32.9 Red Cell Distribution Width 13.5 Platelet Count 327 Mean Platelet Volume 10.3 Neutrophils % 81.3 H Lymphocytes % 11.9 L Monocytes % 5.5 Eosinophils % 0.6 Basophils % 0.3 Nucleated Red Blood Cells % 0.0 Neutrophils # 9.9 H Lymphocytes # 1.4 Monocytes # 0.7 Eosinophils # 0.1 Basophils # 0.0 Nucleated Red Blood Cells # 0.0 Sodium Level 133 L Potassium Level 4.5 Chloride Level 97 Carbon Dioxide Level 25 Anion Gap 16 Blood Urea Nitrogen 20 Creatinine 1.02 H Glucose Level 171 Calcium Level 9.5 Test 10/23/16 08:09 10/23/16 11:17 Bedside Glucose 156 233 H Medications Medications Current Medications Ondansetron HCl (Zofran Inj) 4 mg Q6H PRN IV NAUSEA AND/OR VOMITING Last administered on 10/23/16 14:55; Admin Dose 4 MG; Start 10/21/16 at 01:00 Apixaban (Eliquis) 5 mg BID PO Last administered on 10/23/16 08:47; Admin Dose 5 MG; Start 10/21/16 at 09:00 Insulin Glargine (Lantus) 20 unit DAILY@20 SC Last administered on 10/22/16 20: 26; Admin Dose 20 UNIT; Start 10/21/16 at 20:00 Miscellaneous Information 1 ea NOTE XX ; Start 10/21/16 at 01:30 Glucose (Glutose) 15 gm Q15M PRN PO DECREASED GLUCOSE; Start 10/21/16 at 01:30 Glucose (Glutose) 22.5 gm Q15M PRN PO DECREASED GLUCOSE; Start 10/21/16 at 01:30 Dextrose (D50w Syringe) 25 ml Q15M PRN IV DECREASED GLUCOSE; Start 10/21/16 at 01:30 Dextrose (D50w Syringe) 50 ml Q15M PRN IV DECREASED GLUCOSE; Start 10/21/16 at 01:30 Glucagon (Glucagen) 1 mg Q15M PRN IM DECREASED GLUCOSE; Start 10/21/16 at 01:30 Glucose (Glutose) 15 gm Q15M PRN BUCCAL DECREASED GLUCOSE; Start 10/21/16 at 01: 30 Diagnostic Test (Pha) (Accu-Chek) 1 ea 02 XX ; Start 10/22/16 at 02:00 Lisinopril (Zestril) 10 mg BID PO Last administered on 10/23/16 08:46; Admin Dose 10 MG; Start 10/21/16 at 21:00 Metoprolol Tartrate (Lopressor) 100 mg BID PO Last administered on 10/23/16 08: 48; Admin Dose 100 MG; Start 10/21/16 at 21:00 Diltiazem HCl (Cardizem Iv) 5 mg Q4 PRN IV HR>110 Hold SBP<100; Start 10/21/16 at 14:00 Morphine Sulfate (morphine) 2 mg Q4H PRN IV PAIN Last administered on 10/21/16 18:38; Admin Dose 2 MG; Start 10/21/16 at 19:00 Pantoprazole (Protonix Tab) 40 mg DAILY@06 PO Last administered on 10/23/16 06: 08; Admin Dose 40 MG; Start 10/22/16 at 06:00 Diltiazem HCl (Cardizem) 120 mg TID PO Last administered on 10/23/16 12:14; Admin Dose 120 MG; Start 10/22/16 at 13:00 Atorvastatin Calcium (Lipitor) 20 mg HS PO Last administered on 10/22/16 20:21 ; Admin Dose 20 MG; Start 10/22/16 at 21:00 AMALIA RODIRGUEZ Oct 23, 2016 16:41
[2016-10-23] MEDS: ATORVASTATIN 20 MG TAB PO SCH (21:09)
[2016-10-23] MEDS: INSULIN GLARGINE [LANtus] 3 ML PEN SC SCH (21:13)
[2016-10-24] VITALS (13 sets, daily range): BP systolic 105–132; BP diastolic 53–67; PULSE 49–130; RESP 17–20
[2016-10-24] MEDS: ACCUCHECK AT 2AM (Patients on SS coverage) XX SCH (02:00)
[2016-10-24] MEDS: PANTOPRAZOLE (EC) 40 MG TAB PO SCH (06:10)
[2016-10-24 06:57] LABS: ADD SCAN DIFF NO
[2016-10-24 07:03] LABS: BASOPHIL # 0.1 10^3/ul (0.0-0.1); BASOPHILS % 0.5 % (0.0-2.0); EOSINOPHILS # 0.1 10^3/ul (0.0-0.5); EOSINOPHILS % 1.1 % (0.0-7.0); HEMATOCRIT 35.4 % (37.0-47.0); HEMOGLOBIN 11.5 g/dl (12.0-16.0); LYMPHOCYTES # 2.3 10^3/ul (0.8-2.9); LYMPHOCYTES % 24.3 % (15.0-51.0); MEAN CORPUSCULAR HEMOGLOBIN 26.3 pg (29.0-33.0); MEAN CORPUSCULAR HGB CONC 32.5 g/dl (32.0-37.0); MEAN CORPUSCULAR VOLUME 80.8 fl (82.0-101.0); MEAN PLATELET VOLUME 10.6 fl (7.4-10.4); MONOCYTE # 0.7 10^3/ul (0.3-0.9); MONOCYTES % 7.8 % (0.0-11.0); NEUTROPHIL # 6.3 10^3/ul (1.6-7.5); NEUTROPHILS % 65.9 % (39.0-77.0); PLATELET COUNT 326 10^3/UL (140-415); RED BLOOD COUNT 4.38 10^6/ul (4.20-5.40); RED CELL DISTRIBUTION WIDTH 13.3 % (11.5-14.5); WHITE BLOOD COUNT 9.5 10^3/ul (4.8-10.8)
[2016-10-24 07:26] LABS: CALCIUM 9.4 mg/dl (8.4-10.2); CREATININE 1.02 mg/dl (0.44-1.00); POTASSIUM 4.5 mmol/L (3.5-5.1)
[2016-10-24] MEDS: INSULIN ASPART [NOVOLOG] 3 ML PEN SC SCH ×7 (07:55→20:35)
[2016-10-24] MEDS: APIXABAN 5 MG TABLET PO SCH ×2 (08:06→20:35)
[2016-10-24] MEDS: LISINOPRIL 20 MG TAB PO SCH ×2 (08:07→20:33)
[2016-10-24] MEDS: DILTIAZEM 60 MG TAB PO SCH ×2 (08:07→12:28)
[2016-10-24] MEDS: METOPROLOL 25 MG TAB PO SCH ×2 (08:12→20:35)
[2016-10-24] MEDS ORDERED: INSULIN ASPART [NOVOLOG] 3 ML PEN SC ONE (12:48)
--- NOTE | 2016-10-24 13:29 | CONS ---
Date/Time of Note Date/Time of Note DATE: 10/24/16 TIME: 13:24 Assessment/Plan Assessment/Plan Chief Complaint/Hosp Course IMPRESSION: 1. Atrial fibrillation with rapid ventricular response-now rate controlled on combo of BB and CCB 2. Chest pain, improved, with improved rate control and a negative Lexiscan for ischemia in June of 2016. 3. Hypertension. Under reasonable control at this time. 4. Diabetes mellitus. 5. Abnormal electrocardiogram, with nonspecific ST-T abnormalities diffusely and negative troponins x3 Recc: -Tele -serial ecg's -continue diltiazem but will attempt to change dosing regimen to aide in compliance and continue BB as tolerated. -Continue statin/apixaban -Continue acei as tolerated only. -D/C planning if HR remains stable Problems: Consultation Date/Type/Reason Admit Date/Time Oct 21, 2016 at 13:36 Initial Consult Date 10/21/2016 Type of Consultation: Cardiology Reason for Consultation AF with RVR Referring Provider: AMALIA RODRIGUEZ Exam/Review of Systems Vital Signs Vitals Vital Signs Date Time Temp Pulse Resp B/P Pulse Ox O2 Delivery O2 Flow Rate FiO2 10/24/16 12:30 66 10/24/16 12:03 98.0 18 132/62 96 10/21/16 01:30 Room Air Intake and Output 10/23/16 10/23/16 10/24/16 15:00 23:00 07:00 Intake Total 800 ml 800 ml Balance 800 ml 800 ml Exam Review of Systems: CONSTITUTIONAL: No fevers, chills. PULMONARY: No sob CARDIOVASCULAR: No chest pain/palpitations GASTROINTESTINAL: No nausea/vomiting. GENITOURINARY: No hematuria/dysuria. MUSCULOSKELETAL: No myagias/arthalgias. PSYCHIATRIC: The patient denies depression. NEUROLOGIC: No weakness Constitutional: alert, oriented Psych: no complaints Head: normocephalic ENMT: mucosa pink and moist Neck: jvd (9 cm water), supple Respiratory: diminished breath sounds (at bases/B) Cardiovascular: irregular rhythm Gastrointestinal: non-tender, soft Musculoskeletal: muscle tone (normal) Extremities: edema (none) Neurological: other (No focal deficits) Results Result Diagram: 10/24/16 0630 10/24/16 0630 Results 24 hrs Laboratory Tests Test 10/23/16 17:27 10/23/16 21:07 10/24/16 03:01 10/24/16 06:30 Bedside Glucose 172 220 134 White Blood Count 9.5 # Red Blood Count 4.38 Hemoglobin 11.5 L Hematocrit 35.4 L Mean Corpuscular Volume 80.8 L Mean Corpuscular Hemoglobin 26.3 L Mean Corpuscular Hemoglobin Concent 32.5 Red Cell Distribution Width 13.3 Platelet Count 326 Mean Platelet Volume 10.6 H Neutrophils % 65.9 Lymphocytes % 24.3 Monocytes % 7.8 Eosinophils % 1.1 Basophils % 0.5 Nucleated Red Blood Cells % 0.0 Neutrophils # 6.3 Lymphocytes # 2.3 Monocytes # 0.7 Eosinophils # 0.1 Basophils # 0.1 Nucleated Red Blood Cells # 0.0 Sodium Level 129 L Potassium Level 4.5 Chloride Level 96 L Carbon Dioxide Level 22 Anion Gap 16 Blood Urea Nitrogen 21 H Creatinine 1.02 H Glucose Level 135 Calcium Level 9.4 Test 10/24/16 07:46 10/24/16 11:54 Bedside Glucose 121 343 H Medications Medications Current Medications Ondansetron HCl (Zofran Inj) 4 mg Q6H PRN IV NAUSEA AND/OR VOMITING Last administered on 10/23/16 14:55; Admin Dose 4 MG; Start 10/21/16 at 01:00 Apixaban (Eliquis) 5 mg BID PO Last administered on 10/24/16 08:06; Admin Dose 5 MG; Start 10/21/16 at 09:00 Insulin Glargine (Lantus) 20 unit DAILY@20 SC Last administered on 10/23/16 21: 13; Admin Dose 20 UNIT; Start 10/21/16 at 20:00 Miscellaneous Information 1 ea NOTE XX ; Start 10/21/16 at 01:30 Glucose (Glutose) 15 gm Q15M PRN PO DECREASED GLUCOSE; Start 10/21/16 at 01:30 Glucose (Glutose) 22.5 gm Q15M PRN PO DECREASED GLUCOSE; Start 10/21/16 at 01:30 Dextrose (D50w Syringe) 25 ml Q15M PRN IV DECREASED GLUCOSE; Start 10/21/16 at 01:30 Dextrose (D50w Syringe) 50 ml Q15M PRN IV DECREASED GLUCOSE; Start 10/21/16 at 01:30 Glucagon (Glucagen) 1 mg Q15M PRN IM DECREASED GLUCOSE; Start 10/21/16 at 01:30 Glucose (Glutose) 15 gm Q15M PRN BUCCAL DECREASED GLUCOSE; Start 10/21/16 at 01: 30 Diagnostic Test (Pha) (Accu-Chek) 1 ea 02 XX ; Start 10/22/16 at 02:00 Lisinopril (Zestril) 10 mg BID PO Last administered on 10/24/16 08:07; Admin Dose 10 MG; Start 10/21/16 at 21:00 Metoprolol Tartrate (Lopressor) 100 mg BID PO Last administered on 10/23/16 21: 09; Admin Dose 100 MG; Start 10/21/16 at 21:00 Diltiazem HCl (Cardizem Iv) 5 mg Q4 PRN IV HR>110 Hold SBP<100; Start 10/21/16 at 14:00 Morphine Sulfate (morphine) 2 mg Q4H PRN IV PAIN Last administered on 10/21/16 18:38; Admin Dose 2 MG; Start 10/21/16 at 19:00 Pantoprazole (Protonix Tab) 40 mg DAILY@06 PO Last administered on 10/24/16 06: 10; Admin Dose 40 MG; Start 10/22/16 at 06:00 Diltiazem HCl (Cardizem) 120 mg TID PO Last administered on 10/24/16 12:28; Admin Dose 120 MG; Start 10/22/16 at 13:00 Atorvastatin Calcium (Lipitor) 20 mg HS PO Last administered on 10/23/16 21:09 ; Admin Dose 20 MG; Start 10/22/16 at 21:00 KIMBERLEY OSBORN Oct 24, 2016 13:29
--- NOTE | 2016-10-24 17:26 | PN ---
Date/Time of Note Date/Time of Note DATE: 10/24/16 TIME: 17:24 Assessment/Plan VTE Prophylaxis VTE Prophylaxis Intervention: other Lines/Catheters IV Catheter Type (from [facility]): Saline Lock Urinary Cath still in place: No Assessment/Plan Chief Complaint/Hosp Course #1 atrial fibrillation with RVR: Improved rate control Plan is to switch Cardizem dose 180 mg p.o. twice daily and monitor overnight #2 diabetes mellitus: Most recent A1c was 8.5.: Patient is having excellent glycemic control on current regimen #3 Hypertension: Good control on current regimen #4 Mild dyslipidemia with a low HDL: Start low dose statin Prophylaxis patient is currently on Eliquis, Discharge planning: Anticipate DC tomorrow Problems: Subjective 24 Hr Interval Summary Constitutional: no complaints Exam/Review of Systems Vital Signs Vitals Vital Signs Date Time Temp Pulse Resp B/P Pulse Ox O2 Delivery O2 Flow Rate FiO2 10/24/16 16:14 52 10/24/16 15:20 98.0 18 115/56 96 10/21/16 01:30 Room Air Intake and Output 10/23/16 10/23/16 10/24/16 15:00 23:00 07:00 Intake Total 800 ml 800 ml Balance 800 ml 800 ml Exam Constitutional: alert Respiratory: clear to auscultation Cardiovascular: regular rate and rhythm Gastrointestinal: soft, No distended Musculoskeletal: nl extremities to inspection Results Result Diagram: 10/24/16 0630 10/24/16 0630 Results 24 hrs Laboratory Tests Test 10/23/16 17:27 10/23/16 21:07 10/24/16 03:01 10/24/16 06:30 Bedside Glucose 172 220 134 White Blood Count 9.5 # Red Blood Count 4.38 Hemoglobin 11.5 L Hematocrit 35.4 L Mean Corpuscular Volume 80.8 L Mean Corpuscular Hemoglobin 26.3 L Mean Corpuscular Hemoglobin Concent 32.5 Red Cell Distribution Width 13.3 Platelet Count 326 Mean Platelet Volume 10.6 H Neutrophils % 65.9 Lymphocytes % 24.3 Monocytes % 7.8 Eosinophils % 1.1 Basophils % 0.5 Nucleated Red Blood Cells % 0.0 Neutrophils # 6.3 Lymphocytes # 2.3 Monocytes # 0.7 Eosinophils # 0.1 Basophils # 0.1 Nucleated Red Blood Cells # 0.0 Sodium Level 129 L Potassium Level 4.5 Chloride Level 96 L Carbon Dioxide Level 22 Anion Gap 16 Blood Urea Nitrogen 21 H Creatinine 1.02 H Glucose Level 135 Calcium Level 9.4 Test 10/24/16 07:46 10/24/16 11:54 Bedside Glucose 121 343 H Medications Medications Current Medications Ondansetron HCl (Zofran Inj) 4 mg Q6H PRN IV NAUSEA AND/OR VOMITING Last administered on 10/23/16 14:55; Admin Dose 4 MG; Start 10/21/16 at 01:00 Apixaban (Eliquis) 5 mg BID PO Last administered on 10/24/16 08:06; Admin Dose 5 MG; Start 10/21/16 at 09:00 Insulin Glargine (Lantus) 20 unit DAILY@20 SC Last administered on 10/23/16 21: 13; Admin Dose 20 UNIT; Start 10/21/16 at 20:00 Miscellaneous Information 1 ea NOTE XX ; Start 10/21/16 at 01:30 Glucose (Glutose) 15 gm Q15M PRN PO DECREASED GLUCOSE; Start 10/21/16 at 01:30 Glucose (Glutose) 22.5 gm Q15M PRN PO DECREASED GLUCOSE; Start 10/21/16 at 01:30 Dextrose (D50w Syringe) 25 ml Q15M PRN IV DECREASED GLUCOSE; Start 10/21/16 at 01:30 Dextrose (D50w Syringe) 50 ml Q15M PRN IV DECREASED GLUCOSE; Start 10/21/16 at 01:30 Glucagon (Glucagen) 1 mg Q15M PRN IM DECREASED GLUCOSE; Start 10/21/16 at 01:30 Glucose (Glutose) 15 gm Q15M PRN BUCCAL DECREASED GLUCOSE; Start 10/21/16 at 01: 30 Diagnostic Test (Pha) (Accu-Chek) 1 ea 02 XX ; Start 10/22/16 at 02:00 Lisinopril (Zestril) 10 mg BID PO Last administered on 10/24/16 08:07; Admin Dose 10 MG; Start 10/21/16 at 21:00 Diltiazem HCl (Cardizem Iv) 5 mg Q4 PRN IV HR>110 Hold SBP<100; Start 10/21/16 at 14:00 Morphine Sulfate (morphine) 2 mg Q4H PRN IV PAIN Last administered on 10/21/16 18:38; Admin Dose 2 MG; Start 10/21/16 at 19:00 Pantoprazole (Protonix Tab) 40 mg DAILY@06 PO Last administered on 10/24/16 06: 10; Admin Dose 40 MG; Start 10/22/16 at 06:00 Diltiazem HCl (Cardizem) 120 mg TID PO Last administered on 10/24/16 12:28; Admin Dose 120 MG; Start 10/22/16 at 13:00 Atorvastatin Calcium (Lipitor) 20 mg HS PO Last administered on 10/23/16 21:09 ; Admin Dose 20 MG; Start 10/22/16 at 21:00 Metoprolol Tartrate (Lopressor) 50 mg BID PO ; Start 10/24/16 at 21:00 MARIO PATTEN Oct 24, 2016 17:26
[2016-10-24] MEDS: INSULIN GLARGINE [LANtus] 3 ML PEN SC SCH (20:34)
[2016-10-24] MEDS: ATORVASTATIN 20 MG TAB PO SCH (20:35)
[2016-10-24] MEDS: DILTIAZEM (CD) 180 MG CAP PO SCH (20:35)
[2016-10-25] VITALS (10 sets, daily range): BP systolic 101–166; BP diastolic 58–92; PULSE 80–135; RESP 18–19
[2016-10-25] MEDS: ACCUCHECK AT 2AM (Patients on SS coverage) XX SCH (02:00)
[2016-10-25] MEDS: INSULIN ASPART [NOVOLOG] 3 ML PEN SC SCH ×4 (08:25→12:43)
[2016-10-25] MEDS: APIXABAN 5 MG TABLET PO SCH (08:44)
[2016-10-25] MEDS: DILTIAZEM (CD) 180 MG CAP PO SCH (08:45)
[2016-10-25] MEDS: LISINOPRIL 20 MG TAB PO SCH (09:00)
--- NOTE | 2016-10-25 10:00 | CONS ---
Date/Time of Note Date/Time of Note DATE: 10/25/16 TIME: 09:58 Assessment/Plan Assessment/Plan Additional Assessment/Plan 1. Atrial fibrillation with rapid ventricular response- still in a. fib - rate on high side - WILL INCREASE DOSE of AVN agents as tolerated - rate well Rx, will monitor clonically 2. Chest pain, improved, with improved rate control and a negative Lexiscan for ischemia in June of 2016- r/o [place], dobt ischemia.- RESOLVED 3. Hypertension. Under reasonable control at this time- wll rx, con't med rx - in good range 4. Diabetes mellitus- on meds, will keep euglycemic, 5. Abnormal electrocardiogram, with nonspecific ST-T abnormalities diffusely and negative troponins x2. Consultation Date/Type/Reason Admit Date/Time Oct 23, 2016 at 13:36 Type of Consultation: Cardiology Referring Provider: AMALIA RODRIGUEZ 24 HR Interval Summary Free Text/Dictation NO acute change - a.fib difficult to Rx - will add additional agent dose now ROS: No fever, no chills, no nausea, no vomiting, no diarrhea/constipation No recent weight changes No chest pain, no PND, no orthopnea + palpations No dizziness, blurred vision No thirst, no heat or cold intolerance Exam/Review of Systems Vital Signs Vitals Vital Signs Date Time Temp Pulse Resp B/P Pulse Ox O2 Delivery O2 Flow Rate FiO2 10/25/16 08:00 135 10/25/16 07:29 98.3 19 101/65 98 Intake and Output 10/24/16 10/24/16 10/25/16 15:00 23:00 07:00 Intake Total 950 ml 800 ml Balance 950 ml 800 ml Exam General: WN/WD/NAD, AOx 3 HEENT: Unicetric/atraumatic/EOMI (follow commands) NECK: JVD elevated, no thyromegaly Lymph: no lymphadenopathy HEART: Ir Irregular with no S3, II/ systolic murmur at apex LUNGS: Coarse sounds ABD: soft, NT, ND, +BS : Intact Neuro: non focal SKIN: chronic changes EXT: trace edema Results Result Diagram: 10/24/16 0630 10/24/16 0630 Results 24 hrs Laboratory Tests Test 10/24/16 11:54 10/24/16 17:25 10/24/16 20:32 10/25/16 03:01 Bedside Glucose 343 H 154 171 106 Test 10/25/16 07:51 Bedside Glucose 170 Medications Medications Current Medications Ondansetron HCl (Zofran Inj) 4 mg Q6H PRN IV NAUSEA AND/OR VOMITING Last administered on 10/23/16 14:55; Admin Dose 4 MG; Start 10/21/16 at 01:00 Apixaban (Eliquis) 5 mg BID PO Last administered on 10/25/16 08:44; Admin Dose 5 MG; Start 10/21/16 at 09:00 Insulin Glargine (Lantus) 20 unit DAILY@20 SC Last administered on 10/24/16 20: 34; Admin Dose 20 UNIT; Start 10/21/16 at 20:00 Miscellaneous Information 1 ea NOTE XX ; Start 10/21/16 at 01:30 Glucose (Glutose) 15 gm Q15M PRN PO DECREASED GLUCOSE; Start 10/21/16 at 01:30 Glucose (Glutose) 22.5 gm Q15M PRN PO DECREASED GLUCOSE; Start 10/21/16 at 01:30 Dextrose (D50w Syringe) 25 ml Q15M PRN IV DECREASED GLUCOSE; Start 10/21/16 at 01:30 Dextrose (D50w Syringe) 50 ml Q15M PRN IV DECREASED GLUCOSE; Start 10/21/16 at 01:30 Glucagon (Glucagen) 1 mg Q15M PRN IM DECREASED GLUCOSE; Start 10/21/16 at 01:30 Glucose (Glutose) 15 gm Q15M PRN BUCCAL DECREASED GLUCOSE; Start 10/21/16 at 01: 30 Diagnostic Test (Pha) (Accu-Chek) 1 ea 02 XX ; Start 10/22/16 at 02:00 Lisinopril (Zestril) 10 mg BID PO Last administered on 10/24/16 20:33; Admin Dose 10 MG; Start 10/21/16 at 21:00 Diltiazem HCl (Cardizem Iv) 5 mg Q4 PRN IV HR>110 Hold SBP<100; Start 10/21/16 at 14:00 Morphine Sulfate (morphine) 2 mg Q4H PRN IV PAIN Last administered on 10/21/16 18:38; Admin Dose 2 MG; Start 10/21/16 at 19:00 Atorvastatin Calcium (Lipitor) 20 mg HS PO Last administered on 10/24/16 20:35 ; Admin Dose 20 MG; Start 10/22/16 at 21:00 Metoprolol Tartrate (Lopressor) 50 mg BID PO Last administered on 10/24/16 20: 35; Admin Dose 50 MG; Start 10/24/16 at 21:00 Diltiazem HCl (Cardizem Cd) 180 mg BID PO Last administered on 10/25/16 08:45; Admin Dose 180 MG; Start 10/24/16 at 21:00 JEFFY MARTINES MD Oct 25, 2016 10:00
[2016-10-25] MEDS: METOPROLOL 25 MG TAB PO SCH (10:10)
[2016-10-25] MEDS ORDERED: METO-448 PO (15:10)
[2016-10-25] MEDS ORDERED: DILT180C75 PO (15:10)
--- NOTE | 2016-10-25 15:11 | PDOCDIS ---
Discharge Instructions CONDITION Patient Condition: Good HOME CARE INSTRUCTIONS: Diet Instructions: Reduced Sodium ACTIVITY: Activity Restrictions: No Restrictions FOLLOW UP/APPOINTMENTS Appointments FOLLOW UP WITH YOUR PRIMARY CARE PHYSICIAN IN 1-2 WEEKS MARIO PATTEN Oct 25, 2016 15:11
--- NOTE | 2016-10-25 15:38 | DS ---
DATE OF ADMISSION: 10/23/2016 DATE OF DISCHARGE: 10/25/2016 FINAL DIAGNOSES: 1. Atrial fibrillation with rapid ventricular rate, now controlled. The patient is to continue met oprolol now at lower dose of 50 mg twice a day and have added Cardizem-CD 180 mg p.o. b.i.d. 2. Diabetes, A1c 8.5. The patient glycemic control is well controlled in house. Continue home reg imen. 3. Hypertension. Continue home regimen. HOSPITAL COURSE: The patient is a 71-year-old female with a history of a-fib on Eliquis and metopro lol. The patient comes in with atrial fibrillation with RVR, rate was increased. The patient was s een by cardiology. She did get Cardizem IV. The patient was started on Cardizem p.o. as well as do se were increased, was switched to Cardizem-CD 180 mg p.o. b.i.d., which was given in addition to he r metoprolol. The patient was on metoprolol 75 at home but was switched 50 mg p.o. b.i.d. here in h ouse. She was continued on her home lisinopril as well as Eliquis in house. The patient's heart ra te was ultimately controlled. She was felt to be stable for discharge per cardiology. On day of , the patient's vitals, labs, and physical exam were stable. She had no acute complaints. Q uestions were answered. CONDITION ON DISCHARGE: Stable. DISPOSITION: To home. MEDICATIONS: 1. The patient is to continue usual home medications. She was given a new prescription for diltiaz em CD 180 mg p.o. b.i.d. 2. Metoprolol 50 mg p.o. b.i.d. 3. She was to stop her metoprolol 75 mg p.o. b.i.d. FOLLOWUP: The patient is to follow up with her PCP 1 to 2 weeks. Greater than 30 minutes was spent coordinating discharge of patient. Dictated By: MARIO ELI/NTS Conf#: [id number] DID#: [id number]
[2016-10-25] MEDS ORDERED: METO-407 PO (16:12)
== END 2016-10-25 17:13 | disposition home or self-care (01) | DRG 309 ==
LOC: E/R 21:11 → TEL 23:43 → OBSVTOIN 10-23 13:36
PROVIDERS: ADMIT Family Medicine; ATTEND Family Medicine
DX: I48.91 Unspecified atrial fibrillation (principal); E87.1 Hypo-osmolality and hyponatremia; E11.9 Type 2 diabetes mellitus without complications; I10 Essential (primary) hypertension; E78.5 Hyperlipidemia, unspecified; R94.31 Abnormal electrocardiogram [ECG] [EKG]; Z79.01 Long term (current) use of anticoagulants
CPT/HCPCS: 36415; 71010; 80048; 80053; 80061; 81001; 82550; 82553; 82962; 83735; 84443; 84484; 85025; 85610; 85730; 93005; 96374; 96375; 96376; G0378; C9113; J1815; J2270; J2405; J3475; J7040